=== PATIENT | female | born 1940 | race Caucasian/White ===

== ENCOUNTER 2016-05-21 14:59 | Emergency (ER) | payer MEDICARE, OTHER ==
[2016-05-21] MEDS ORDERED: Sodium Chloride 0.9% 10 ML Syringe FLUSH PRN (15:41)
[2016-05-21] MEDS ORDERED: Sodium Chloride 0.9% 250 ML IV STA (16:52)
--- NOTE | 2016-05-21 17:10 | EDM.PDOC ---
ED HPI GENERAL MEDICAL PROBLEM - General Chief Complaint: General Stated Complaint: BLOOD TRANSFUSION Time Seen by Provider: 05/21/16 15:25 Source of Information: Reports: Patient History Limitations: Reports: No limitations - History of Present Illness INITIAL COMMENTS - FREE TEXT/NARRATIVE: The patient presents with anemia. She has myelodysplastic syndrome and she is being treated by Dr Pearson at [facility] in [place]. She is on darbepoetin to help stimulate her bone marrow to make more red blood cells. For the past few days, she has been weak and having no energy. She also has some shortness of breath but no chest pain or headache. She feels like her Hgb is low again. Her last one done a few weeks ago was 8.7. Onset: gradual Duration: Day(s): Improves with: Reports: None Worsens with: Reports: Movement Context: Reports: Activity Associated Symptoms: Reports: nausea/vomiting (nausea at times), shortness of breath. Denies: chest pain, cough, fever/chills - Related Data Allergies Allergy/AdvReac Type Severity Reaction Status Date / Time Sulfa (Sulfonamide AdvReac Headache Verified 05/21/16 15:14 Antibiotics) Home Meds: Home Meds Cyanocobalamin (Vitamin B-12) [Vitamin B-12] 1,000 mcg PO DAILY 03/12/14 [ History] Melatonin/Pyridoxine HCl (B6) [Melatonin 3 mg Tablet] 3 mg PO BEDTIME PRN [History] Latanoprost [Xalatan 0.005% Ophth Soln] 2.5 ml EYEBOTH BEDTIME 02/08/15 [History ] Pantoprazole Sodium [Protonix] 40 mg PO DAILY 03/02/16 [History] Past Medical History HEENT History: Reports: Impaired vision Other Gastrointestinal History: ulcerative colitis, esophagitis, 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 Musculoskeletal History: Reports: Arthritis Hematologic History: Reports: Anemia - Past Surgical History Other GI Surgeries/Procedures: hemorrhoidectomy Social & Family History - Family History Family Medical History: Noncontributory Oncologic: Reports: Colon - Tobacco Use Smoking Status *Q: Never Smoker Second Hand Smoke Exposure: No - Caffeine Use Caffeine Use: Reports: Soda - Alcohol Use Days Per Week of Alcohol Use: 0 Number of Drinks Per Day: 0 Total Drinks Per Week: 0 - Recreational Drug Use Recreational Drug Use: No Drug Use in Last 12 Months: No - Living Situation & Occupation Living situation: Reports: Occupation: retired ED ROS GENERAL - Review of Systems Review Of Systems: See Below Constitutional: Reports: malaise, weakness, fatigue HEENT: Reports: No symptoms Respiratory: Reports: shortness of breath Cardiovascular: Reports: No symptoms Endocrine: Reports: no symptoms GI/Abdominal: Reports: No symptoms : Reports: no symptoms Musculoskeletal: Reports: no symptoms Skin: Reports: no symptoms ED EXAM, GENERAL - Physical Exam Exam: See Below Exam Limited By: No limitations General Appearance: alert, no apparent distress Ears: normal external exam Nose: normal inspection Head: atraumatic, normocephalic Neck: normal inspection Respiratory/Chest: no respiratory distress, lungs clear, normal breath sounds Cardiovascular: regular rate, rhythm, no edema, no murmur GI/Abdominal: soft, non tender, no organomegaly, no mass Back Exam: normal inspection Neurological: alert, oriented, no motor/sensory deficits Course - Vital Signs Last Recorded V/S: Last Vital Signs Temp 98.7 F 05/21/16 17:51 Pulse 82 05/21/16 17:51 Resp 14 05/21/16 17:51 BP 93/55 L 05/21/16 17:51 Pulse Ox 100 05/21/16 15:12 - Orders/Labs/Meds Orders: Active Orders 24 hr Category Date Time Status Peripheral IV Care [RC] . DIRECTED Care 05/21/16 15:42 Active RED BLOOD CELLS LP [BBK] Stat Lab 05/21/16 15:25 Results TYPE AND SCREEN [BBK] Stat Lab 05/21/16 15:25 Results Sodium Chloride 0.9% [Normal Saline] 250 ml Med 05/21/16 16:52 Active IV NOW Sodium Chloride 0.9% [Saline Flush] Med 05/21/16 15:41 Active 10 ml FLUSH ASDIRECTED PRN Peripheral IV Insertion Adult [OM.PC] Stat Oth 05/21/16 15:41 Ordered Transfuse PRBC [Transfuse Red Blood Cells] [COMM] Stat Oth 05/21/16 15:42 Ordered Medication Orders Sodium Chloride (Normal Saline) 250 mls @ 25 mls/hr IV NOW STA Stop: 05/22/16 02:51 Last Admin: 05/21/16 17:57 Dose: 25 mls/hr Sodium Chloride (Saline Flush) 10 ml FLUSH ASDIRECTED PRN PRN Reason: Keep Vein Open Last Admin: 05/21/16 15:45 Dose: 10 ml Labs: Laboratory Tests 05/21/16 05/21/16 Range/Units 15:25 15:25 WBC 4.76 (3.98-10.04) K/mm3 RBC 2.03 L (3.98-5.22) M/mm3 Hgb 6.5 L* (11.2-15.7) gm/L Hct 20.5 L (34.1-44.9) % MCV 101.0 H (79.4-94.8) fl MCH 32.0 (25.6-32.2) pg MCHC 31.7 L (32.2-35.5) g/dl RDW Std Deviation 98.3 H (36.4-46.3) fL Plt Count 327 (182-369) K/mm3 MPV 10.2 (9.4-12.3) fl Neut % (Auto) 53.1 (34.0-71.1) % Lymph % (Auto) 28.2 (19.3-51.7) % [place] % (Auto) 8.6 (4.7-12.5) % Eos % (Auto) 7.8 H (0.7-5.8) Baso % (Auto) 1.5 H (0.1-1.2) % Neut # 2.53 (1.56-6.13) K/mm3 Lymph # 1.34 (1.18-3.74) K/mm3 [place] # 0.41 H (0.24-0.36) K/mm3 Eos # 0.37 H (0.04-0.36) K/mm3 Baso # 0.07 (0.01-0.08) K/mm3 Manual Slide Review Abnormal smear Blood Type B POSITIVE Gel Antibody Screen Negative Crossmatch See Detail Meds: Medications Generic Name Dose Route Start Last Admin Trade Name Freq PRN Reason Stop Dose Admin Sodium Chloride 250 mls @ 25 mls/hr 05/21/16 16:52 05/21/16 17:57 Normal Saline IV 05/22/16 02:51 25 mls/hr NOW STA Administration Sodium Chloride 10 ml 05/21/16 15:41 05/21/16 15:45 Saline Flush FLUSH 10 ml ASDIRECTED PRN Administration Keep Vein Open - Re-Assessments/Exams Free Text/Narrative Re-Assessment/Exam: 05/21/16 17:09 I ordered an IV saline lock. Her Hgb was 6.5. I have 2 units ordered. 05/21/16 18:32 The blood is being transfused and she is doing good. She will be discharged after the 2 units. She was given something to eat. Departure - Departure Time of Disposition: 18:35 Disposition: Home, Self-Care 01 Condition: good Clinical Impression: Myelodysplasia (myelodysplastic syndrome) Anemia Qualifiers: Anemia type: other cause Other causes of anemia: other cause, not classified Qualified Code(s): D64.89 - Other specified anemias Referrals: Shannan Pearson MD [Primary Care Provider] - (as scheduled) Forms: ED Department Discharge Additional Instructions: Continue take your medication as prescribed. Please return if you are worse. - My Orders Last 24 Hours: My Active Orders 05/21/16 15:25 RED BLOOD CELLS LP [BBK] Stat TYPE AND SCREEN [BBK] Stat 05/21/16 15:41 Sodium Chloride 0.9% [Saline Flush] 10 ml FLUSH ASDIRECTED PRN Peripheral IV Insertion Adult [OM.PC] Stat 05/21/16 15:42 Peripheral IV Care [RC] . DIRECTED Transfuse PRBC [Transfuse Red Blood Cells] [COMM] Stat 05/21/16 16:52 Sodium Chloride 0.9% [Normal Saline] 250 ml IV NOW - Assessment/Plan Last 24 Hours: My Active Orders 05/21/16 15:25 RED BLOOD CELLS LP [BBK] Stat TYPE AND SCREEN [BBK] Stat 05/21/16 15:41 Sodium Chloride 0.9% [Saline Flush] 10 ml FLUSH ASDIRECTED PRN Peripheral IV Insertion Adult [OM.PC] Stat 05/21/16 15:42 Peripheral IV Care [RC] . DIRECTED Transfuse PRBC [Transfuse Red Blood Cells] [COMM] Stat 05/21/16 16:52 Sodium Chloride 0.9% [Normal Saline] 250 ml IV NOW
[2016-05-21 22:18] VITALS: BP 103/52
== END 2016-05-21 22:25 | disposition home or self-care (01) ==
LOC: JD.ED 14:59
DX: D64.89 Other specified anemias (principal); D46.9 Myelodysplastic syndrome, unspecified; M19.90 Unspecified osteoarthritis, unspecified site; Z79.899 Other long term (current) drug therapy; Z88.2 Allergy status to sulfonamides
CPT/HCPCS: 36415; 36430; 85025; 86850; 86900; 86901; 86922; 99285; J7050; P9016; 99284

== ENCOUNTER 2016-06-20 15:54 | Emergency (ER) | payer MEDICARE, OTHER ==
[2016-06-20] MEDS ORDERED: Sodium Chloride 0.9% 10 ML Syringe FLUSH PRN (16:43)
[2016-06-20] MEDS ORDERED: Sodium Chloride 0.9% 1,000 ML IV ONE (16:49)
--- NOTE | 2016-06-20 17:46 | EDM.PDOC ---
ED HPI GENERAL MEDICAL PROBLEM - General Chief Complaint: General Stated Complaint: LOW HEMOGLOBIN Time Seen by Provider: 06/20/16 16:21 Source of Information: Reports: Patient History Limitations: Reports: No limitations - History of Present Illness INITIAL COMMENTS - FREE TEXT/NARRATIVE: Patient presents for evaluation and treatment of nausea and diarrhea. Patient reports that she's been feeling ill for the last 2 days. Patient reports that she has myelodysplastic syndrome and feels that her hemoglobin is low. She states this is how she feels when her hemoglobin is low. She reports that she's been feeling nauseous and has had dry heaves but no vomiting. She reports 2 episodes of looser brown stools today. No melena or hematochezia. She also feels weak and fatigued. She denies any fevers, cough, chest pain, shortness of breath or abdominal pain. Patient reports that she took a bath earlier in attempt to feel better. She states when she was trying to get out of the tub she felt weak and short of breath at that time but that has now resolved. Patient sees the local oncologist for her MDS. She is currently on a injection to help stimulate her bone marrow. Her oncologist is planning on making some changes to her medications as the injections no longer seems to be effective for her. Patient reports that she's had 5 or 6 blood transfusions. Her most recent blood transfusion was in May,. No complications with blood transfusions. - Related Data Allergies Allergy/AdvReac Type Severity Reaction Status Date / Time Sulfa (Sulfonamide AdvReac Headache Verified 06/20/16 16:10 Antibiotics) Home Meds: Home Meds Cyanocobalamin (Vitamin B-12) [Vitamin B-12] 1,000 mcg PO DAILY 03/12/14 [ History] Melatonin/Pyridoxine HCl (B6) [Melatonin 3 mg Tablet] 3 mg PO BEDTIME PRN [History] Latanoprost [Xalatan 0.005% Ophth Soln] 1 drop EYEBOTH BEDTIME 02/08/15 [History ] Pantoprazole Sodium [Protonix] 40 mg PO DAILY 03/02/16 [History] Past Medical History HEENT History: Reports: Impaired vision Other Gastrointestinal History: ulcerative colitis, esophagitis, 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 Musculoskeletal History: Reports: Arthritis Hematologic History: Reports: Anemia - Past Surgical History Other GI Surgeries/Procedures: hemorrhoidectomy Social & Family History - Family History Family Medical History: Noncontributory Oncologic: Reports: Colon - Tobacco Use Smoking Status *Q: Never Smoker Second Hand Smoke Exposure: No - Caffeine Use Caffeine Use: Reports: Soda - Alcohol Use Days Per Week of Alcohol Use: 0 Number of Drinks Per Day: 0 Total Drinks Per Week: 0 - Recreational Drug Use Recreational Drug Use: No Drug Use in Last 12 Months: No - Living Situation & Occupation Living situation: Reports: Occupation: retired ED ROS GENERAL - Review of Systems Review Of Systems: See Below Constitutional: Reports: malaise, weakness, fatigue. Denies: fever Respiratory: Denies: Shortness of Breath, Cough Cardiovascular: Denies: Chest pain GI/Abdominal: Reports: Diarrhea (x 2 episodes today), Nausea. Denies: Abdominal pain, Hematochezia, Melena, Vomiting ED EXAM, GENERAL - Physical Exam Exam: See Below Exam Limited By: No limitations General Appearance: alert, WD/WN, no apparent distress Respiratory/Chest: no respiratory distress, lungs clear, normal breath sounds Cardiovascular: normal peripheral pulses, regular rate, rhythm, no murmur GI/Abdominal: normal bowel sounds, soft, non tender Neurological: alert, oriented, normal cognition Psychiatric: normal affect, normal mood Skin Exam: Warm, Dry, Pallor Course - Vital Signs Last Recorded V/S: Last Vital Signs Temp 36.1 C 06/20/16 21:14 Pulse 84 06/20/16 21:14 Resp 18 06/20/16 21:14 BP 108/59 L 06/20/16 21:14 Pulse Ox 96 06/20/16 16:10 - Orders/Labs/Meds Orders: Active Orders 24 hr Category Date Time Status Peripheral IV Care [RC] . DIRECTED Care 06/20/16 16:43 Active Sodium Chloride 0.9% [Normal Saline] 1,000 ml Med 06/20/16 16:49 Active IV ONETIME Sodium Chloride 0.9% [Saline Flush] Med 06/20/16 16:43 Active 10 ml FLUSH ASDIRECTED PRN Peripheral IV Insertion Adult [OM.PC] Routine Oth 06/20/16 16:43 Ordered Transfuse PRBC [Transfuse Red Blood Cells] [COMM] Stat Oth 06/20/16 16:42 Ordered Medication Orders Sodium Chloride (Normal Saline) 1,000 mls @ 100 mls/hr IV ONETIME ONE Stop: 06/21/16 02:48 Last Admin: 06/20/16 17:01 Dose: 100 mls/hr Sodium Chloride (Saline Flush) 10 ml FLUSH ASDIRECTED PRN PRN Reason: Keep Vein Open Last Admin: 06/20/16 17:01 Dose: 10 ml Labs: Laboratory Tests 06/20/16 06/20/16 06/20/16 Range/Units 16:16 16:16 16:16 WBC 5.85 (3.98-10.04) K/mm3 RBC 2.46 L (3.98-5.22) M/mm3 Hgb 7.8 L (11.2-15.7) gm/L Hct 24.5 L (34.1-44.9) % MCV 99.6 H (79.4-94.8) fl MCH 31.7 (25.6-32.2) pg MCHC 31.8 L (32.2-35.5) g/dl RDW Std Deviation 85.8 H (36.4-46.3) fL Plt Count 360 (182-369) K/mm3 MPV 9.8 (9.4-12.3) fl Neut % (Auto) 54.4 (34.0-71.1) % Lymph % (Auto) 24.1 (19.3-51.7) % [place] % (Auto) 9.7 (4.7-12.5) % Eos % (Auto) 8.2 H (0.7-5.8) Baso % (Auto) 1.9 H (0.1-1.2) % Neut # (Auto) 3.18 (1.56-6.13) K/mm3 Lymph # (Auto) 1.41 (1.18-3.74) K/mm3 [place] # (Auto) 0.57 H (0.24-0.36) K/mm3 Eos # (Auto) 0.48 H (0.04-0.36) K/mm3 Baso # (Auto) 0.11 H (0.01-0.08) K/mm3 Manual Slide Review Abnormal smear Sodium 141 (136-145) mEq/L Potassium 3.7 (3.5-5.1) mEq/L Chloride 104 (98-107) mEq/L Carbon Dioxide 24 (21-32) mEq/L Anion Gap 16.7 H (5-15) BUN 14 (7-18) mg/dL Creatinine 1.1 H (0.55-1.02) mg/dL Est Cr Clr Drug Dosing 35.49 mL/min Estimated GFR (MDRD) 49 (>60) mL/min BUN/Creatinine Ratio 12.7 L (14-18) Glucose 163 H (83-115) mg/dL Calcium 8.8 (8.5-10.1) mg/dL B-Natriuretic Peptide (0-100) pg/mL Blood Type B POSITIVE Gel Antibody Screen Negative Crossmatch See Detail 06/20/16 Range/Units 16:42 WBC (3.98-10.04) K/mm3 RBC (3.98-5.22) M/mm3 Hgb (11.2-15.7) gm/L Hct (34.1-44.9) % MCV (79.4-94.8) fl MCH (25.6-32.2) pg MCHC (32.2-35.5) g/dl RDW Std Deviation (36.4-46.3) fL Plt Count (182-369) K/mm3 MPV (9.4-12.3) fl Neut % (Auto) (34.0-71.1) % Lymph % (Auto) (19.3-51.7) % [place] % (Auto) (4.7-12.5) % Eos % (Auto) (0.7-5.8) Baso % (Auto) (0.1-1.2) % Neut # (Auto) (1.56-6.13) K/mm3 Lymph # (Auto) (1.18-3.74) K/mm3 [place] # (Auto) (0.24-0.36) K/mm3 Eos # (Auto) (0.04-0.36) K/mm3 Baso # (Auto) (0.01-0.08) K/mm3 Manual Slide Review Sodium (136-145) mEq/L Potassium (3.5-5.1) mEq/L Chloride (98-107) mEq/L Carbon Dioxide (21-32) mEq/L Anion Gap (5-15) BUN (7-18) mg/dL Creatinine (0.55-1.02) mg/dL Est Cr Clr Drug Dosing mL/min Estimated GFR (MDRD) (>60) mL/min BUN/Creatinine Ratio (14-18) Glucose (83-115) mg/dL Calcium (8.5-10.1) mg/dL B-Natriuretic Peptide 86 (0-100) pg/mL Blood Type Gel Antibody Screen Crossmatch Meds: Medications Generic Name Dose Route Start Last Admin Trade Name Freq PRN Reason Stop Dose Admin Sodium Chloride 1,000 mls @ 100 mls/hr 06/20/16 16:49 06/20/16 17:01 Normal Saline IV 06/21/16 02:48 100 mls/hr ONETIME ONE Administration Sodium Chloride 10 ml 06/20/16 16:43 06/20/16 17:01 Saline Flush FLUSH 10 ml ASDIRECTED PRN Administration Keep Vein Open - Re-Assessments/Exams Free Text/Narrative Re-Assessment/Exam: 06/20/16 16:56 Labs returned. WBC is 5.85, hgb is 7.8 and plts are 360 Sodium is 141, potassium is 3.7 and chloride is 104. Anion gap is16.7. glucose is [address] Panchal. Recommend 2 units. Recommended checking a BNP to ensure she does not need lasix. 06/20/16 17:50 BNP is 86 06/20/16 18:50 Blood has arrived. Resting comfortably. Receiving blood. 06/20/16 22:01 Patient has about 3 hours left of the 2nd unit. Dr. Puente notified of patient. Plan is to discharge her once the 2 unit is in. Departure - Departure Time of Disposition: 21:52 Disposition: Home, Self-Care 01 Condition: good Clinical Impression: Anemia Qualifiers: Anemia type: other cause Other causes of anemia: other cause, not classified Qualified Code(s): D64.89 - Other specified anemias Forms: ED Department Discharge Additional Instructions: Continue with your current plan of care. Please return to the ER should your symptoms change or worsen. - My Orders Last 24 Hours: My Active Orders 06/20/16 16:42 Transfuse PRBC [Transfuse Red Blood Cells] [COMM] Stat 06/20/16 16:43 Peripheral IV Care [RC] . DIRECTED Sodium Chloride 0.9% [Saline Flush] 10 ml FLUSH ASDIRECTED PRN Peripheral IV Insertion Adult [OM.PC] Routine 06/20/16 16:49 Sodium Chloride 0.9% [Normal Saline] 1,000 ml IV ONETIME - Assessment/Plan Last 24 Hours: My Active Orders 06/20/16 16:42 Transfuse PRBC [Transfuse Red Blood Cells] [COMM] Stat 06/20/16 16:43 Peripheral IV Care [RC] . DIRECTED Sodium Chloride 0.9% [Saline Flush] 10 ml FLUSH ASDIRECTED PRN Peripheral IV Insertion Adult [OM.PC] Routine 06/20/16 16:49 Sodium Chloride 0.9% [Normal Saline] 1,000 ml IV ONETIME
[2016-06-20 23:48] VITALS: BP 112/75
== END 2016-06-20 23:46 | disposition home or self-care (01) ==
LOC: JD.ED 15:54
DX: D64.89 Other specified anemias (principal); D46.9 Myelodysplastic syndrome, unspecified; Z88.2 Allergy status to sulfonamides; Z79.899 Other long term (current) drug therapy; M19.90 Unspecified osteoarthritis, unspecified site
CPT/HCPCS: 36415; 36430; 80048; 83880; 85025; 86850; 86900; 86901; 86922; 96360; 96361; 99284; J7040; J7050; P9016

== ENCOUNTER 2016-07-24 14:35 | Emergency (ER) | payer MEDICARE, OTHER ==
[2016-07-24] MEDS ORDERED: Sodium Chloride 0.9% 10 ML Syringe FLUSH PRN (15:24)
--- NOTE | 2016-07-24 15:57 | EDM.PDOC ---
ED HPI GENERAL MEDICAL PROBLEM - General Chief Complaint: Cardiovascular Problem Stated Complaint: PALE/ NEEDS POSS BLOOD TRANSFUSION Time Seen by Provider: 07/24/16 15:26 Source of Information: Reports: Patient History Limitations: Reports: No Limitations - History of Present Illness INITIAL COMMENTS - FREE TEXT/NARRATIVE: 76-year-old female presents for a low hemoglobin. She feels that her hemoglobin is low today. She is currently a diagnosis of MDS. Sees oncology in [place]. She has an appointment with her oncologist tomorrow. She feels her hemoglobin is low today and will likely require blood. She denies any fevers or chills. Current symptoms include dizziness, lightheadedness, nausea, vomiting, diarrhea and abdominal discomfort. Denies any chest pain, shortness of breath or syncope. Last blood transfusion was about one month ago. Hemoglobin was 7.8. Received 2 units of blood. - Related Data Allergies Allergy/AdvReac Type Severity Reaction Status Date / Time Sulfa (Sulfonamide AdvReac Headache Verified 07/24/16 14:57 Antibiotics) Home Meds: Home Meds Cyanocobalamin (Vitamin B-12) [Vitamin B-12] 1,000 mcg PO DAILY 03/12/14 [ History] Melatonin/Pyridoxine HCl (B6) [Melatonin 3 mg Tablet] 3 mg PO BEDTIME PRN [History] Latanoprost [Xalatan 0.005% Ophth Soln] 1 drop EYEBOTH BEDTIME 02/08/15 [History ] Pantoprazole Sodium [Protonix] 40 mg PO DAILY 03/02/16 [History] Deferasirox [Jadenu] 750 mg PO DAILY 07/24/16 [History] Lenalidomide [Revlimid] 10 mg PO DAILY 07/24/16 [History] Past Medical History HEENT History: Reports: Impaired Vision Other Gastrointestinal History: ulcerative colitis, esophagitis, 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 , diverticulitis Musculoskeletal History: Reports: Arthritis Hematologic History: Reports: Anemia, Other (See Below) Other Hematologic History: myelody plastic syndrome (MDS) - Past Surgical History Other GI Surgeries/Procedures: hemorrhoidectomy Social & Family History - Family History Family Medical History: Noncontributory Oncologic: Reports: Colon - Tobacco Use Smoking Status *Q: Never Smoker Second Hand Smoke Exposure: No - Caffeine Use Caffeine Use: Reports: Coffee - Alcohol Use Days Per Week of Alcohol Use: 0 Number of Drinks Per Day: 0 Total Drinks Per Week: 0 - Recreational Drug Use Recreational Drug Use: No Drug Use in Last 12 Months: No - Living Situation & Occupation Living situation: Reports: Occupation: Retired ED ROS GENERAL - Review of Systems Review Of Systems: See Below Constitutional: Reports: Weakness. Denies: Fever Respiratory: Denies: Shortness of Breath Cardiovascular: Reports: Lightheadedness. Denies: Chest Pain, Syncope GI/Abdominal: Reports: Abdominal Pain, Diarrhea, Nausea, Vomiting Neurological: Reports: Dizziness ED EXAM, GENERAL - Physical Exam Exam: See Below Exam Limited By: No Limitations General Appearance: Alert, WD/WN, No Apparent Distress Respiratory/Chest: No Respiratory Distress, Lungs Clear, Normal Breath Sounds Cardiovascular: Normal Peripheral Pulses, Regular Rate, Rhythm, No Murmur Neurological: Alert, Oriented, Normal Cognition Psychiatric: Normal Affect, Normal Mood Skin Exam: Warm, Dry, Pallor Course - Vital Signs Last Recorded V/S: Last Vital Signs Temp 36.8 C 07/24/16 22:13 Pulse 72 07/24/16 22:13 Resp 18 07/24/16 22:13 BP 94/46 L 07/24/16 22:13 Pulse Ox 100 07/24/16 14:51 - Orders/Labs/Meds Orders: Active Orders 24 hr Category Date Time Status Peripheral IV Care [RC] . DIRECTED Care 07/24/16 15:25 Active Peripheral IV Insertion Adult [OM.PC] Routine Oth 07/24/16 15:24 Ordered Transfuse Red Blood Cells [COMM] Stat Oth 07/24/16 16:23 Ordered Labs: Laboratory Tests 07/24/16 07/24/16 07/24/16 Range/Units 16:07 16:07 16:07 WBC 4.11 (3.98-10.04) K/mm3 RBC 2.34 L (3.98-5.22) M/mm3 Hgb 7.4 L (11.2-15.7) gm/L Hct 23.3 L (34.1-44.9) % MCV 99.6 H (79.4-94.8) fl MCH 31.6 (25.6-32.2) pg MCHC 31.8 L (32.2-35.5) g/dl RDW Std Deviation 79.8 H (36.4-46.3) fL Plt Count 230 (182-369) K/mm3 MPV 10.9 (9.4-12.3) fl Sodium 143 (136-145) mEq/L Potassium 3.1 L (3.5-5.1) mEq/L Chloride 107 (98-107) mEq/L Carbon Dioxide 23 (21-32) mEq/L Anion Gap 16.1 H (5-15) BUN 9 (7-18) mg/dL Creatinine 1.1 H (0.55-1.02) mg/dL Est Cr Clr Drug Dosing 34.95 mL/min Estimated GFR (MDRD) 48 (>60) mL/min BUN/Creatinine Ratio 8.2 L (14-18) Glucose 100 (83-115) mg/dL Calcium 8.1 L (8.5-10.1) mg/dL Total Bilirubin 1.8 H (0.2-1.0) mg/dL AST 13 L (15-37) U/L ALT 16 (14-59) U/L Alkaline Phosphatase 58 (46-116) U/L B-Natriuretic Peptide 290 H (0-100) pg/mL Total Protein 6.8 (6.4-8.2) g/dl Albumin 3.8 (3.4-5.0) g/dl Globulin 3.0 gm/dL Albumin/Globulin Ratio 1.3 (1-2) Blood Type Gel Antibody Screen Crossmatch 07/24/16 Range/Units 16:07 WBC (3.98-10.04) K/mm3 RBC (3.98-5.22) M/mm3 Hgb (11.2-15.7) gm/L Hct (34.1-44.9) % MCV (79.4-94.8) fl MCH (25.6-32.2) pg MCHC (32.2-35.5) g/dl RDW Std Deviation (36.4-46.3) fL Plt Count (182-369) K/mm3 MPV (9.4-12.3) fl Sodium (136-145) mEq/L Potassium (3.5-5.1) mEq/L Chloride (98-107) mEq/L Carbon Dioxide (21-32) mEq/L Anion Gap (5-15) BUN (7-18) mg/dL Creatinine (0.55-1.02) mg/dL Est Cr Clr Drug Dosing mL/min Estimated GFR (MDRD) (>60) mL/min BUN/Creatinine Ratio (14-18) Glucose (83-115) mg/dL Calcium (8.5-10.1) mg/dL Total Bilirubin (0.2-1.0) mg/dL AST (15-37) U/L ALT (14-59) U/L Alkaline Phosphatase (46-116) U/L B-Natriuretic Peptide (0-100) pg/mL Total Protein (6.4-8.2) g/dl Albumin (3.4-5.0) g/dl Globulin gm/dL Albumin/Globulin Ratio (1-2) Blood Type B POSITIVE Gel Antibody Screen Negative Crossmatch See Detail Meds: Medications Discontinued Medications Generic Name Dose Route Start Last Admin Trade Name Freq PRN Reason Stop Dose Admin Furosemide 20 mg 07/24/16 21:10 Lasix IVPUSH 07/24/16 21:11 ONETIME ONE Sodium Chloride Confirm 07/24/16 17:20 Normal Saline Administered 07/24/16 17:21 Dose 1,000 mls @ as directed .ROUTE .STK-MED ONE Sodium Chloride 10 ml 07/24/16 15:24 07/24/16 17:29 Saline Flush FLUSH 10 ml ASDIRECTED PRN Administration Keep Vein Open - Re-Assessments/Exams Free Text/Narrative Re-Assessment/Exam: 07/24/16 22:33 Labs include the following. White blood cell count 4.1, hemoglobin 7.4 platelets 2:30. Sodium 143, potassium 3.1 chloride 107. Anion gap is 16.1. Glucose is 100. BNP is 290. Patient was ordered 2 units of blood for her hemoglobin of 7.4. Plan was to give Lasix 20 mg in between units. However, her blood pressure was in the 90s systolic and due to concerns over hypotension this was withheld. Patient tolerated the transfusion well. She feels well enough to go home. Will discharge home at this time. She is to follow up with her oncologist tomorrow as planned. Discharge instructions as documented. Departure - Departure Time of Disposition: 22:34 Disposition: Home, Self-Care 01 Condition: good Clinical Impression: Anemia Qualifiers: Anemia type: other cause Other causes of anemia: other cause, not classified Qualified Code(s): D64.89 - Other specified anemias Instructions: Blood Transfusion, [id number], Anemia, Referrals: Shannan Pearson MD [Primary Care Provider] - Forms: ED Department Discharge Additional Instructions: Continue with your current plan of care. Follow-up with your oncologist tomorrow as planned. Please return to the ER should your symptoms change or worsen. - My Orders Last 24 Hours: My Active Orders 07/24/16 15:24 Peripheral IV Insertion Adult [OM.PC] Routine 07/24/16 15:25 Peripheral IV Care [RC] . DIRECTED 07/24/16 16:23 Transfuse Red Blood Cells [COMM] Stat - Assessment/Plan Last 24 Hours: My Active Orders 07/24/16 15:24 Peripheral IV Insertion Adult [OM.PC] Routine 07/24/16 15:25 Peripheral IV Care [RC] . DIRECTED 07/24/16 16:23 Transfuse Red Blood Cells [COMM] Stat
[2016-07-24] MEDS ORDERED: Sodium Chloride 0.9% 1,000 ML ONE (17:20)
[2016-07-24] MEDS ORDERED: Furosemide 20 MG/2 ML VIAL IVPUSH ONE (21:10)
[2016-07-24 22:14] VITALS: BP 94/46
== END 2016-07-24 22:53 | disposition home or self-care (01) ==
LOC: JD.ED 14:35
DX: D64.89 Other specified anemias (principal); Z98.890 Other specified postprocedural states; Z88.2 Allergy status to sulfonamides; Z79.899 Other long term (current) drug therapy
CPT/HCPCS: 36415; 36430; 80053; 83880; 85027; 86850; 86900; 86901; 86922; 99284; J7050; P9016

== ENCOUNTER 2017-01-08 15:05 | Emergency (ER) | payer MEDICARE, OTHER ==
--- NOTE | 2017-01-08 15:23 | EDM.PDOC ---
ED HPI GENERAL MEDICAL PROBLEM - General Chief Complaint: Syncope Stated Complaint: FEELING FAINT Time Seen by Provider: 01/08/17 15:21 Source of Information: Reports: Patient History Limitations: Reports: No Limitations - History of Present Illness INITIAL COMMENTS - FREE TEXT/NARRATIVE: 76-year-old female presents to the ED after experiencing sudden onset of severe left lower lateral chest pain. Described it as sharp and stabbing but morbidly pressure discomfort. At any rate once the pain came on it made her feel dizzy lightheaded and diaphoretic and that she was going to faint. The chest pain is subsequently went away. When she got to the hospital should to go to the bathroom immediately and pass her bowels which seemed to help the pain. Patient suffers from myelodysplastic syndrome and did have lab work done at [facility] this morning. Her hemoglobin apparently was 9.0 and a don't usually transfuse her until she goes below 9. Her white count apparently was quite low. She is currently on antibiotic therapy for urinary tract infection. She denies any fever or chills. He is quite pallid however in appearance. Onset: Today Onset Date: 01/08/17 Onset Time: 14:45 Duration: Minutes: Location: Reports: Chest (Left lateral lower chest) Quality: Reports: Ache, Pressure. Denies: Sharp, Stabbing Severity: Moderate (Pain was 8 out of 10 for a while.) Improves with: Reports: Other (Gradually got better on its own over a period of 10-15 minutes.) Worsens with: Reports: None Context: Denies: Activity, Exercise, Lifting, Sick Contact, Trauma, Other (Was walking when the pain came on.) Associated Symptoms: Reports: Chest Pain, Loss of Appetite (Chronically), Malaise, Nausea/Vomiting, Shortness of Breath, Weakness, Other (Like she was going to pass out for a period of time.). Denies: Confusion, Cough, cough w sputum, Fever/Chills, Headaches, Rash, Seizure (Nausea without vomiting), Syncope Treatments [employer]: Reports: Other (see below) (Did not take anything for the pain it seemed to get better on its own over time) - Related Data Allergies Allergy/AdvReac Type Severity Reaction Status Date / Time Sulfa (Sulfonamide AdvReac Headache Verified 01/08/17 15:16 Antibiotics) Home Meds: Home Meds Cyanocobalamin (Vitamin B-12) [Vitamin B-12] 1,000 mcg PO DAILY 03/12/14 [ History] Latanoprost [Xalatan 0.005% Ophth Soln] 1 drop EYEBOTH BEDTIME 02/08/15 [History ] Pantoprazole Sodium [Protonix] 40 mg PO DAILY 03/02/16 [History] Melatonin 3 mg PO BEDTIME PRN 10/25/16 [History] Turmeric Root Extract [Turmeric] 500 mg PO DAILY 10/25/16 [History] Ciprofloxacin [Ciprofloxacin HCl] 500 mg PO BID 01/08/17 [History] Lenalidomide [Revlimid] 5 mg PO ASDIRECTED 01/08/17 [History] Past Medical History HEENT History: Reports: Impaired Vision Other Gastrointestinal History: ulcerative colitis, esophagitis, 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 , diverticulitis Musculoskeletal History: Reports: Arthritis Hematologic History: Reports: Anemia, Other (See Below) Other Hematologic History: myelody plastic syndrome (MDS) - Past Surgical History Other GI Surgeries/Procedures: hemorrhoidectomy Social & Family History - Family History Family Medical History: Noncontributory Oncologic: Reports: Colon - Tobacco Use Smoking Status *Q: Never Smoker Second Hand Smoke Exposure: No - Caffeine Use Caffeine Use: Reports: Coffee - Alcohol Use Days Per Week of Alcohol Use: 0 Number of Drinks Per Day: 0 Total Drinks Per Week: 0 - Recreational Drug Use Recreational Drug Use: No Drug Use in Last 12 Months: No - Living Situation & Occupation Living situation: Reports: Occupation: Retired ED ROS GENERAL - Review of Systems Review Of Systems: See Below Constitutional: Reports: Malaise, Weakness, Fatigue (Due to chronic anemia from myelodysplastic syndrome.), Decreased Appetite, Weight Loss. Denies: Fever, Chills HEENT: Reports: No Symptoms, Other Respiratory: Reports: Shortness of Breath (No recent nosebleeds.). Denies: Wheezing, Pleuritic Chest Pain ( On exertion) Cardiovascular: Reports: Chest Pain, Blood Pressure Problem (See history of present illness), Dyspnea on Exertion (Mild in her feet.), Edema, Lightheadedness, Palpitations. Denies: Claudication ( often has a low blood pressure), Orthopnea Endocrine: Reports: Fatigue (Occasionally aware of palpitations) GI/Abdominal: Reports: Constipation : Reports: Incontinence (Mainly stress component) Musculoskeletal: Reports: Back Pain, Joint Pain (Knees and hips at times) Skin: Reports: Pallor (Due to chronic anemia) Neurological: Reports: Dizziness ([place] like she might pass out with days pain attack.) Hematologic/Lymphatic: Reports: No Symptoms Immunologic: Reports: No Symptoms ED EXAM, NEURO - Physical Exam Exam: See Below Exam Limited By: No Limitations General Appearance: Anxious, Other (Mildly anxious very palate in color.) Eye Exam: Bilateral Eye: Other (Very pale conjunctiva.) Head Exam: Atraumatic, Normocephalic Neck: Normal Inspection, Supple, Non-Tender, Full Range of Motion Respiratory/Chest: No Respiratory Distress, Lungs Clear, Normal Breath Sounds, No Accessory Muscle Use Cardiovascular: Normal Peripheral Pulses, Regular Rate, Rhythm, No Edema, No Murmur GI/Abdominal: Normal Bowel Sounds, Soft, Non-Tender, No Organomegaly (Mildly hyperactive bowel sounds throughout.), No Distention, Abnormal Bowel Sounds Neurological: Alert, Normal Mood/Affect, Normal Dorsiflexion, CN II-XII Intact, Normal Plantar Flexion, Normal Reflexes Back Exam: Normal Inspection, Full Range of Motion Extremities: Normal Range of Motion, Non-Tender, No Pedal Edema, Normal Capillary Refill Psychiatric: Normal Affect, Normal Mood Skin Exam: Warm, Dry, Intact, No Rash, Pallor EKG INTERPRETATION EKG Date: 01/08/17 Time: 15:45 Rhythm: NSR Rate (Beats/Min): 67 [place]: LAD-Left [place] Deviation (-10) P-Wave: Present QRS: Other (Early R-wave transition with poor R-wave progression. Near Q waves leads 3 and aVF consider possible old inferior wall myocardial infarction.) ST-T: Other (T-wave flattening 1 and aVL. Also lead to V3 to V 6.) QT: Prolonged (Markedly prolonged at 505.) Course - Vital Signs Last Recorded V/S: Last Vital Signs Temp 36.1 C 01/08/17 15:16 Pulse 70 01/08/17 16:17 Resp 12 01/08/17 16:17 BP 114/66 01/08/17 16:17 Pulse Ox 99 01/08/17 16:17 Orthostatic Blood Pressure [ 101/54 Standing] Orthostatic Blood Pressure [ 105/59 Sitting] Orthostatic Blood Pressure [ 91/43 Supine] - Orders/Labs/Meds Orders: Active Orders 24 hr Category Date Time Status EKG Documentation Completion [RC] STAT Care 01/08/17 15:21 Active Orthostatic Vital Signs [RC] ASDIRECTED Care 01/08/17 15:22 Active Abdomen 1V Flat [CR] Stat Exams 01/08/17 15:31 Taken Chest 1V Frontal [CR] Stat Exams 01/08/17 15:21 Taken Sodium Chloride 0.9% [Normal Saline] 1,000 ml Med 01/08/17 15:30 Active IV ASDIRECTED Medication Orders Sodium Chloride (Normal Saline) 1,000 mls @ 150 mls/hr IV ASDIRECTED MAYRA Meds: Medications Generic Name Dose Route Start Last Admin Trade Name Freq PRN Reason Stop Dose Admin Sodium Chloride 1,000 mls @ 150 mls/hr 01/08/17 15:30 Normal Saline IV ASDIRECTED MAYRA - Radiology Interpretation Free Text/Narrative:: 76-year-old female presents to the ED after experiencing sudden onset of left lateral lower chest pain pressure discomfort while walking. Stopped in her traction for a period of time later break out in a sweat feel nauseated and like she might pass out. She had to sit for about 15 minutes and then seemed to poonam. When she got to the hospital she had to go to the bathroom right away and have a bowel movement would seem to improve the situation. suffers from myelodysplastic syndrome and had lab work carried out at [facility] earlier this morning. She was told her white count was low her hemoglobin was stable at 9.0 and did not need a blood transfusion at this time. Is quite pallid in appearance. 2 sets or posterior 100% however. His Sudafed during lab work we will see if we can obtain the labs from [facility]. I have will have one view of the chest and one view of the abdomen x-ray done. He will be 150 mils of normal saline bolus. She is to have orthostatic BPs done. I believe the pain response precipitated a vagal response which in turn combined with her chronic anemia did drop her blood pressure substantially and nearly made her faint. Because of the pain is unclear at this time but does not appear to be cardiac related. - Re-Assessments/Exams Free Text/Narrative Re-Assessment/Exam: 01/08/17 15:53 was able to obtain lab work done from [place] today. White count is 3.7 hemoglobin is 9.6 today hematocrit of 29.7 platelet count 126,000 chemistry is available. She is on Cipro for urinary tract infection at this time. 01/08/17 16:07 chest x-ray is within normal limits. KUB is essentially normal as well. It is rather hazy and one has to consider ascites. Orthostatic BPs were okay but they remain low with a systolic of 101 only. I believe she suffered a vagal response to pain which in turn dropped her blood pressure and major nearly collapse. 01/08/17 16:20 blood pressure is improved up to 114 systolic. Since I can find anything wrong I'm going to have her up walking in the hallway and see how she feels. I sense is that she developed left lateral chest discomfort from a GI source since her bowels had to work immediately when she got to the hospital and she's felt improved since that time. 01/08/17 16:35 patient did well up walking in the hallway with no problems. She will therefore be discharged to home. No changes in medications will be made at this time. Cause of the sudden left-sided chest pain appears to been GI in origin causing vagal response. Departure - Departure Time of Disposition: 16:35 Disposition: Home, Self-Care 01 Condition: Fair Clinical Impression: Vasovagal near-syncope, Anemia of chronic disorder - Discharge Information Referrals: Shannan Pearson MD [Primary Care Provider] - Forms: ED Department Discharge Additional Instructions: Evaluation in the emergency department today in regards to near syncope or faint. This appears to of occurred from sudden onset of pain left lateral chest wall of unclear cause. I strongly suspect it was GI in origin as once her bowels moved the pain seemed to dissipate. X-rays of the chest are completely normal as was abdominal x-rays. Labs were obtained from [place] that were done this morning they are incomplete in terms of liver function kidney function etc. and reveal that your blood reveals a hemoglobin of 9.6 and a white count of 3.7 which is low normal. Platelet count was also low normal at 126,000. Further blood work was not felt necessary be necessary at this time. I suspect the cause of urine or faint was pain response which we called vagal response slows her heart rate down which then in turn drops her blood pressure and make you feel faint. Once the pain dissipated there heart rate came back up and your blood pressure improved. Therefore no further treatment is advised or indicated at this time. - My Orders Last 24 Hours: My Active Orders 01/08/17 15:21 EKG Documentation Completion [RC] STAT Chest 1V Frontal [CR] Stat 01/08/17 15:22 Orthostatic Vital Signs [RC] ASDIRECTED 01/08/17 15:30 Sodium Chloride 0.9% [Normal Saline] 1,000 ml IV ASDIRECTED 01/08/17 15:31 Abdomen 1V Flat [CR] Stat - Assessment/Plan Last 24 Hours: My Active Orders 01/08/17 15:21 EKG Documentation Completion [RC] STAT Chest 1V Frontal [CR] Stat 01/08/17 15:22 Orthostatic Vital Signs [RC] ASDIRECTED 01/08/17 15:30 Sodium Chloride 0.9% [Normal Saline] 1,000 ml IV ASDIRECTED 01/08/17 15:31 Abdomen 1V Flat [CR] Stat
[2017-01-08] MEDS ORDERED: Sodium Chloride 0.9% 1,000 ML IV SCH (15:30)
[2017-01-08 17:33] VITALS: BP 105/56
--- NOTE | 2017-01-09 09:09 | CR ---
Chest: Portable view of the chest was obtained. Comparison: No prior chest x-ray. Heart size is normal. Tortuous thoracic aorta is seen. Lungs are clear. Bony structures show slight scoliosis within the spine. Mild degenerative endplate spurring is seen within the spine. Impression: 1. Incidental findings. Nothing acute is identified on portable chest x-ray. Diagnostic code #2
--- NOTE | 2017-01-09 09:09 | CR ---
Abdomen: Portable view of the abdomen was obtained. Slight vascular calcification is identified within the pelvis. Phlebolith also seen within the pelvis. Bowel gas pattern felt to be within normal limits although abdomen is slightly gasless. Calcifications are seen overlying the right superior iliac bone which are likely dystrophic and incidental. Bony structures are osteopenic. Mild degenerative change is scattered within the spine. Impression: 1. Incidental findings. Diagnostic code #2
== END 2017-01-08 17:30 | disposition home or self-care (01) ==
LOC: JD.ED 15:05
DX: R55 Syncope and collapse (principal); D53.9 Nutritional anemia, unspecified; Z79.899 Other long term (current) drug therapy; Z88.2 Allergy status to sulfonamides
CPT/HCPCS: 71010; 71010-26; 74000; 74000-26; 93005; 93010; 99285-25

== ENCOUNTER 2017-04-19 22:14 | Emergency (ER) | payer MEDICARE, OTHER ==
[2017-04-19 22:35] VITALS: BP 117/59
--- NOTE | 2017-04-19 23:43 | EDM.PDOC ---
ED HPI GENERAL MEDICAL PROBLEM - General Chief Complaint: Cardiovascular Problem Stated Complaint: PT STATES SHE NEED BLOOD Time Seen by Provider: 04/19/17 22:33 Source of Information: Reports: Patient, Family History Limitations: Reports: No Limitations - History of Present Illness INITIAL COMMENTS - FREE TEXT/NARRATIVE: This is a 76-year-old female. At noon today she had a fried egg and toast. She noted afterwards that she started having some burning sensation in her chest and some stomach upset. She denies however any nausea or vomiting. She did have dry heaves but never vomited anything up. She says she doesn't have a history of heartburn but she has GERD. She comes today because she has a myelodysplastic syndrome and requires transfusions periodically. She had a blood draw done this week at the walk-in clinic with a hemoglobin of 7.7. She does not appear to be particularly pale and she has good color to her lips. She thinks she might need a blood transfusion because of the symptoms that she had today. He does not appear to be in distress at this time she is sitting comfortably in bed and appears that she wants to talk. She says she doesn't have any more burning sensation in her stomach is not bothering her presently. Abdominal Pain Score (Numeric/FACES): 5 - Related Data Allergies Allergy/AdvReac Type Severity Reaction Status Date / Time Sulfa (Sulfonamide AdvReac Headache Verified 04/19/17 22:30 Antibiotics) Home Meds: Home Meds Cyanocobalamin (Vitamin B-12) [Vitamin B-12] 1,000 mcg PO DAILY 03/12/14 [ History] Latanoprost [Xalatan 0.005% Ophth Soln] 1 drop EYEBOTH BEDTIME 02/08/15 [History ] Pantoprazole Sodium [Protonix] 40 mg PO DAILY 03/02/16 [History] Melatonin 3 mg PO BEDTIME PRN 10/25/16 [History] Turmeric Root Extract [Turmeric] 500 mg PO DAILY 10/25/16 [History] Ciprofloxacin [Ciprofloxacin HCl] 500 mg PO BID 01/08/17 [History] Lenalidomide [Revlimid] 5 mg PO ASDIRECTED 01/08/17 [History] Past Medical History HEENT History: Reports: Impaired Vision Other Gastrointestinal History: ulcerative colitis, esophagitis, 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 , diverticulitis [employer] History: Reports: Musculoskeletal History: Reports: Arthritis Hematologic History: Reports: Anemia, Other (See Below) Other Hematologic History: myelodysplastic syndrome (MDS) - Infectious Disease History Infectious Disease History: Reports: Measles - Past Surgical History Other GI Surgeries/Procedures: hemorrhoidectomy Social & Family History - Family History Family Medical History: Noncontributory Oncologic: Reports: Colon - Tobacco Use Smoking Status *Q: Never Smoker Second Hand Smoke Exposure: No - Caffeine Use Caffeine Use: Reports: Coffee - Alcohol Use Days Per Week of Alcohol Use: 0 Number of Drinks Per Day: 0 Total Drinks Per Week: 0 - Recreational Drug Use Recreational Drug Use: No Drug Use in Last 12 Months: No - Living Situation & Occupation Living situation: Reports: Occupation: Retired ED ROS GENERAL - Review of Systems Review Of Systems: See Below Constitutional: Denies: Fever, Chills HEENT: Reports: No Symptoms Respiratory: Reports: No Symptoms Cardiovascular: Reports: No Symptoms Endocrine: Reports: No Symptoms GI/Abdominal: Reports: Abdominal Pain, Other (History of dry heaves but not really vomiting, history of GERD). Denies: Diarrhea, Nausea, Vomiting : Reports: No Symptoms Musculoskeletal: Reports: Other (Myalgias) Skin: Reports: No Symptoms Neurological: Reports: No Symptoms Psychiatric: Reports: No Symptoms Hematologic/Lymphatic: Reports: No Symptoms ED EXAM, GENERAL - Physical Exam Exam: See Below Exam Limited By: No Limitations General Appearance: Alert, WD/WN, No Apparent Distress Eye Exam: Bilateral Eye: Normal Inspection Ears: Normal External Exam Nose: Normal Inspection Throat/Mouth: Normal Inspection, Normal Lips, Normal Voice, No Airway Compromise Head: Normocephalic Neck: Supple Respiratory/Chest: No Respiratory Distress, Lungs Clear, Normal Breath Sounds Cardiovascular: Regular Rate, Rhythm, No Murmur GI/Abdominal: Soft, Non-Tender, No Mass, Other (Bowel sounds were positive). No : Distended, Guarding, Rigid, Rebound, Tender Back Exam: Full Range of Motion Extremities: Normal Inspection, Normal Range of Motion, No Pedal Edema Neurological: Alert, Oriented Psychiatric: Normal Affect, Normal Mood Skin Exam: Warm, Dry, Other (Her lips or a nice red color to her skin itself does have a pale hue to it) Course - Vital Signs Last Recorded V/S: Last Vital Signs Temp 97.0 F 04/19/17 22:30 Pulse 85 04/19/17 22:30 Resp 16 04/19/17 22:30 BP 117/59 L 04/19/17 22:30 Pulse Ox 100 04/19/17 22:30 - Orders/Labs/Meds Orders: Active Orders 24 hr Category Date Time Status Abdomen 2V AP Flat Upright [CR] Stat Exams 04/19/17 23:32 Taken Abdomen Ltd [US] Stat Exams 04/20/17 01:23 Taken CULTURE BLOOD [BC] Stat Lab 04/20/17 04:36 Received CULTURE BLOOD [BC] Stat Lab 04/20/17 04:44 Received Blood Culture x2 Reflex Set [OM.PC] Stat Oth 04/20/17 04:06 Ordered Labs: Laboratory Tests 04/19/17 04/19/17 04/19/17 Range/Units 23:45 23:45 23:45 WBC 1.88 L* (3.98-10.04) K/mm3 RBC 1.75 L (3.98-5.22) M/mm3 Hgb 6.6 L* (11.2-15.7) gm/L Hct 20.8 L (34.1-44.9) % MCV 118.9 H (79.4-94.8) fl MCH 37.7 H (25.6-32.2) pg MCHC 31.7 L (32.2-35.5) g/dl RDW Std Deviation 65.8 H (36.4-46.3) fL Plt Count 76 L (182-369) K/mm3 MPV 11.8 (9.4-12.3) fl Neut % (Auto) 38.3 (34.0-71.1) % Lymph % (Auto) 37.8 (19.3-51.7) % [place] % (Auto) 6.9 (4.7-12.5) % Eos % (Auto) 11.7 H (0.7-5.8) Baso % (Auto) 4.8 H (0.1-1.2) % Neut # (Auto) 0.72 L (1.56-6.13) K/mm3 Lymph # (Auto) 0.71 L (1.18-3.74) K/mm3 [place] # (Auto) 0.13 L (0.24-0.36) K/mm3 Eos # (Auto) 0.22 (0.04-0.36) K/mm3 Baso # (Auto) 0.09 H (0.01-0.08) K/mm3 Manual Slide Review Abnormal smear Sodium 143 (136-145) mEq/L Potassium 3.0 L (3.5-5.1) mEq/L Chloride 105 (98-107) mEq/L Carbon Dioxide 26 (21-32) mEq/L Anion Gap 15.0 (5-15) BUN 14 (7-18) mg/dL Creatinine 1.0 (0.55-1.02) mg/dL Est Cr Clr Drug Dosing 38.44 mL/min Estimated GFR (MDRD) 54 (>60) mL/min BUN/Creatinine Ratio 14.0 (14-18) Glucose 117 H (83-115) mg/dL Calcium 8.6 (8.5-10.1) mg/dL Total Bilirubin 1.7 H (0.2-1.0) mg/dL AST 179 H (15-37) U/L ALT 141 H (14-59) U/L Alkaline Phosphatase 138 H (46-116) U/L Total Protein 7.3 (6.4-8.2) g/dl Albumin 3.2 L (3.4-5.0) g/dl Globulin 4.1 gm/dL Albumin/Globulin Ratio 0.8 L (1-2) Lipase 25359 H (73-393) U/L Meds: Medications Discontinued Medications Generic Name Dose Route Start Last Admin Trade Name Freq PRN Reason Stop Dose Admin Piperacillin Sod/Tazobactam 100 mls @ 200 mls/hr 04/20/17 04:18 04/20/17 04: 50 Sod 4.5 gm/ Sodium Chloride IV 04/20/17 04:47 200 mls/hr ONETIME ONE Administration Ondansetron HCl 4 mg 04/20/17 05:01 04/20/17 05:10 Zofran IVPUSH 04/20/17 05:02 4 mg ONETIME ONE Administration - Radiology Interpretation Free Text/Narrative:: Sounds shows cholelithiasis with acute cholecystitis. - Re-Assessments/Exams Free Text/Narrative Re-Assessment/Exam: 04/20/17 04:15 I spoke to the patient regarding the ultrasound report and her blood work and that she will need be needing to go to [facility] for stabilization of her medical problem before they can do anything surgical. 04/20/17 04:[address] Verdugo who is the hospitalist at [facility] and she is willing to accept the patient in transport for further evaluation and treatment. 04/20/17 04:31 I spoke to the patient again about being transferred to [facility] and that will have an ambulance and will take her there for evaluation and treatment. She is going to call her and when she gets here all explain what is going on with her and will get her transferred to [facility] in [place]. Departure - Departure Time of Disposition: 04:26 Disposition: DC/Tfer to [facility] 02 Reason for Transfer *Q: Other (See the diagnosis) Condition: Fair Clinical Impression: Acute cholecystitis, Cholelithiasis and acute cholecystitis with obstruction, Acute pancreatitis due to calculus of common bile duct, Myelodysplastic syndrome , Severe anemia, Thrombocytopenia, Hypokalemia Leukopenia Qualifiers: Leukopenia type: unspecified Qualified Code(s): D72.819 - Decreased white blood cell count, unspecified Referrals: Floresita Boyle, PHOTO MANAGER [Primary Care Provider] - Additional Instructions: I spoke to Dr. Verdugo at [facility] and she accepts the patient in transport for further evaluation and treatment ED Communication - ED Communication Date/Time Date: 04/20/17 Time Called: 04:26 - Discussed Case With (1) Person/s Notified (1): Dr. Verdugo (Accepts in transport to [facility]) - My Orders Last 24 Hours: My Active Orders 04/19/17 23:32 Abdomen 2V AP Flat Upright [CR] Stat 04/20/17 01:23 Abdomen Ltd [US] Stat 04/20/17 04:06 Blood Culture x2 Reflex Set [OM.PC] Stat 04/20/17 04:36 CULTURE BLOOD [BC] Stat 04/20/17 04:44 CULTURE BLOOD [BC] Stat - Assessment/Plan Last 24 Hours: My Active Orders 04/19/17 23:32 Abdomen 2V AP Flat Upright [CR] Stat 04/20/17 01:23 Abdomen Ltd [US] Stat 04/20/17 04:06 Blood Culture x2 Reflex Set [OM.PC] Stat 04/20/17 04:36 CULTURE BLOOD [BC] Stat 04/20/17 04:44 CULTURE BLOOD [BC] Stat
[2017-04-20] MEDS ORDERED: Piperacillin/Tazobactam 4.5 GM in Sodium Chloride 0.9% 100 ML IV ONE (04:18)
[2017-04-20] MEDS ORDERED: Ondansetron 4 MG/2 ML SDV IVPUSH ONE (05:01)
--- NOTE | 2017-04-21 17:44 | CR ---
Abdomen: Supine and upright views of the abdomen were obtained. Comparison: Prior abdominal x-ray of 01/08/17. Bowel gas pattern appears normal. Surgical anastomotic sutures are seen within the right lower abdomen. Slight degenerative change is scattered within the spine. Calcification is noted within the left lower pelvis compatible with phlebolith. Slight arterial calcification is also seen within the pelvis. No free air is seen. Impression: 1. Incidental findings. Nothing acute is appreciated on two-view abdominal x-ray. Diagnostic code #2
--- NOTE | 2017-04-21 17:44 | US ---
Limited abdominal ultrasound: Multiple real-time images of the upper right abdomen were obtained. Comparison: No prior abdominal ultrasound, prior CT abdomen and pelvis exam dated 09/29/09 as well as previous abdominal x-rays of 04/19/17 and 01/08/17. Liver is echogenic compatible with fatty infiltration. This finding is seen on prior CT exam. Pancreas appears unremarkable as seen. Layering gallstones are seen within the gallbladder. Pericholecystic fluid is seen around the gallbladder. Common bile duct appears within normal limits. Right kidney shows no hydronephrosis or mass. Right kidney has a length of 9.3 cm. Portal vein shows normal hepatopedal flow. Impression: 1. Fatty infiltration within the liver. 2. Small layering gallstones within the gallbladder. Pericholecystic fluid is seen. Findings suspicious for acute cholecystitis. Diagnostic code #5 Agree with preliminary report issued by [employer] ([employer] preliminary report dictated on 04/20/17, 4:46 AM Central Time)
== END 2017-04-20 05:30 ==
LOC: JD.ED 22:14
DX: K80.01 Calculus of gallbladder with acute cholecystitis with obstruction (principal); K85.10 Biliary acute pancreatitis without necrosis or infection; D46.9 Myelodysplastic syndrome, unspecified; D69.6 Thrombocytopenia, unspecified; E87.6 Hypokalemia; Z79.899 Other long term (current) drug therapy
CPT/HCPCS: 36415; 74019; 74019-26; 76705; 76705-26; 80053; 83690; 85025; 87040; 96365; 96375; 99285-25; J2405; J2543; J7030

== ENCOUNTER 2017-05-15 15:17 | Emergency (ER) | payer MEDICARE, OTHER ==
[2017-05-15 15:44] VITALS: BP 114/81
[2017-05-15] MEDS ORDERED: Sodium Chloride 0.9% 1,000 ML IV ONE (16:45)
--- NOTE | 2017-05-15 16:46 | EDM.PDOC ---
ED HPI GENERAL MEDICAL PROBLEM - General Chief Complaint: Gastrointestinal Problem Stated Complaint: HEMMEROIDS W/BLEEDING AND DIARRHEA Time Seen by Provider: 05/15/17 16:43 Source of Information: Reports: Patient - History of Present Illness INITIAL COMMENTS - FREE TEXT/NARRATIVE: Patient is here for evaluation of diarrhea since . She states that she had a cholecystectomy by Dr. Stewart on 04/21/2017 and had been doing well after this. She had diarrhea starting , denies any nausea or vomiting. States that stools have been loose and watery very rarely formed. This has also flared up her hemorrhoids and she has had some hematochezia with bowel movements. Patient denies any nausea or vomiting. Denies any abdominal pain specifically. Denies fever or chills. She has been changing her diet, has been drinking protein shakes and she was told to increase her protein intake after having cholecystectomy. Rectal Pain Score (Numeric/FACES): 3 - Related Data Allergies Allergy/AdvReac Type Severity Reaction Status Date / Time Sulfa (Sulfonamide AdvReac Headache Verified 05/15/17 15:38 Antibiotics) Home Meds: Home Meds Cyanocobalamin (Vitamin B-12) [Vitamin B-12] 1,000 mcg PO DAILY 03/12/14 [ History] Latanoprost [Xalatan 0.005% Ophth Soln] 1 drop EYEBOTH BEDTIME 02/08/15 [History ] Pantoprazole Sodium [Protonix] 40 mg PO DAILY 03/02/16 [History] Melatonin 3 mg PO BEDTIME PRN 10/25/16 [History] Turmeric Root Extract [Turmeric] 500 mg PO DAILY 10/25/16 [History] Ciprofloxacin [Ciprofloxacin HCl] 500 mg PO BID 01/08/17 [History] Lenalidomide [Revlimid] 5 mg PO ASDIRECTED 01/08/17 [History] Past Medical History HEENT History: Reports: Impaired Vision Other Gastrointestinal History: ulcerative colitis, esophagitis, 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 , diverticulitis 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: Musculoskeletal History: Reports: Arthritis Hematologic History: Reports: Anemia, Other (See Below) Other Hematologic History: myelodysplastic syndrome (MDS) - Infectious Disease History Infectious Disease History: Reports: Measles - Past Surgical History GI Surgical History: Reports: Cholecystectomy Other GI Surgeries/Procedures: hemorrhoidectomy Social & Family History - Family History Family Medical History: Noncontributory Oncologic: Reports: Colon - Tobacco Use Smoking Status *Q: Never Smoker Second Hand Smoke Exposure: No - Caffeine Use Caffeine Use: Reports: Coffee - Alcohol Use Days Per Week of Alcohol Use: 0 Number of Drinks Per Day: 0 Total Drinks Per Week: 0 - Recreational Drug Use Recreational Drug Use: No Drug Use in Last 12 Months: No - Living Situation & Occupation Living situation: Reports: Occupation: Retired ED ROS GENERAL - Review of Systems Review Of Systems: See Below Constitutional: Reports: Decreased Appetite. Denies: Fever, Chills, Malaise, Weakness HEENT: Reports: No Symptoms Respiratory: Reports: No Symptoms Cardiovascular: Reports: No Symptoms GI/Abdominal: Reports: Diarrhea, Hematochezia, Other (Hemorrhoids). Denies: Abdominal Pain, Anorexia, Decreased Appetite, Hematemesis, Melena, Nausea : Reports: No Symptoms Skin: Reports: No Symptoms ED EXAM, GI/ABD - Physical Exam Exam: See Below Exam Limited By: No Limitations General Appearance: Alert, WD/WN, No Apparent Distress Throat/Mouth: Normal Oropharynx Head: Atraumatic, Normocephalic Neck: Normal Inspection, Supple, Non-Tender Respiratory/Chest: No Respiratory Distress, Lungs Clear, Normal Breath Sounds Cardiovascular: Normal Peripheral Pulses, Regular Rate, Rhythm, No Murmur GI/Abdominal Exam: Normal Bowel Sounds, Soft, Non-Tender Rectal (Female) Exam: Hemorrhoids (Inflamed external hemorrhoids, not currently thrombosed.) Neurological: Alert, Oriented Skin Exam: Warm, Dry, Intact Course - Vital Signs Last Recorded V/S: Last Vital Signs Temp 97.6 F 05/15/17 15:38 Pulse 82 05/15/17 15:38 Resp 20 05/15/17 15:38 BP 114/81 05/15/17 15:38 Pulse Ox 97 05/15/17 15:38 - Orders/Labs/Meds Orders: Active Orders 24 hr Category Date Time Status Abdomen 1V Flat [CR] Stat Exams 05/15/17 16:45 Taken Labs: Laboratory Tests 05/15/17 05/15/17 Range/Units 17:22 17:22 WBC 3.52 L (3.98-10.04) K/mm3 RBC 2.70 L (3.98-5.22) M/mm3 Hgb 9.5 L (11.2-15.7) gm/L Hct 30.3 L (34.1-44.9) % MCV 112.2 H (79.4-94.8) fl MCH 35.2 H (25.6-32.2) pg MCHC 31.4 L (32.2-35.5) g/dl RDW Std Deviation 79.3 H (36.4-46.3) fL Plt Count 121 L (182-369) K/mm3 MPV 10.0 (9.4-12.3) fl Neutrophils % (Manual) 56 (40-60) % Band Neutrophils % 0 (0-10) % Lymphocytes % (Manual) 30 (20-40) % Atypical Lymphs % 0 % Monocytes % (Manual) 9 (2-10) % Eosinophils % (Manual) 4 (0.7-5.8) % Basophils % (Manual) 1 (0.1-1.2) Platelet Estimate Decreased Plt Morphology Comment Normal Polychromasia 1+ slight Poikilocytosis 1+ slight Anisocytosis 2+ moderate Microcytosis 1+ slight Macrocytosis 1+ slight Tear Drop Cells 1+ slight RBC Morph Comment Abnormal Sodium 141 (136-145) mEq/L Potassium 3.6 (3.5-5.1) mEq/L Chloride 105 (98-107) mEq/L Carbon Dioxide 26 (21-32) mEq/L Anion Gap 13.6 (5-15) BUN 13 (7-18) mg/dL Creatinine 1.1 H (0.55-1.02) mg/dL Est Cr Clr Drug Dosing 34.95 mL/min Estimated GFR (MDRD) 48 (>60) mL/min BUN/Creatinine Ratio 11.8 L (14-18) Glucose 101 (83-115) mg/dL Calcium 9.2 (8.5-10.1) mg/dL Total Bilirubin 1.1 H (0.2-1.0) mg/dL AST 18 (15-37) U/L ALT 34 (14-59) U/L Alkaline Phosphatase 80 (46-116) U/L C-Reactive Protein 1.6 H* (<1.0) mg/dL Total Protein 7.8 (6.4-8.2) g/dl Albumin 3.8 (3.4-5.0) g/dl Globulin 4.0 gm/dL Albumin/Globulin Ratio 1.0 (1-2) Lipase 339 (73-393) U/L Meds: Medications Discontinued Medications Generic Name Dose Route Start Last Admin Trade Name Lacie PRN Reason Stop Dose Admin Sodium Chloride 1,000 mls @ 999 mls/hr 05/15/17 16:45 05/15/17 17:20 Normal Saline IV 05/15/17 17:45 999 mls/hr ONETIME ONE Administration - Re-Assessments/Exams Free Text/Narrative Re-Assessment/Exam: Patient's hemoglobin is 9.5, this is above her baseline with her mild dysplastic syndrome. LFTs and lipase have returned to normal after a cholecystectomy. Her bilirubin is 1.1. CRP is 1.6. Patient is not currently having any abdominal pain nor has she had any diarrhea since being here. I suspect that her diarrhea is actually related to her protein shakes that she has started, I do not feel that she is tolerating these adequately after her cholecystectomy. I recommend that she have a BRAT diet and start a daily probiotic. As for her hemorrhoids she is to use an [id number] hemorrhoid suppository at bedtime. May use Preparation H cream during the day and her witch tyra pads as needed. Patient is to follow-up with her primary provider within the next week or certainly return to the emergency room if needed. 05/15/17 19:23 05/15/17 19:24 Departure - Departure Time of Disposition: 19:25 Disposition: Home, Self-Care 01 Condition: Good Clinical Impression: Inflamed external hemorrhoid Diarrhea Qualifiers: Diarrhea type: unspecified type Qualified Code(s): R19.7 - Diarrhea, unspecified - Discharge Information Instructions: Diarrhea, Adult Referrals: Floresita Boyle NP [Primary Care Provider] - Forms: ED Department Discharge Additional Instructions: I recommend that you stop drinking your protein shakes for now. Very bland diet, no sugar/spice/dairy foods. Started a daily probiotic such as Floragen. For your hemorrhoids use an [id number] hemorrhoid suppository at bedtime. You may continue Preparation H cream and witch tyra pads during the day. Follow-up with your primary provider within a week or certainly return to emergency room if needed. - My Orders Last 24 Hours: My Active Orders 05/15/17 16:45 Abdomen 1V Flat [CR] Stat - Assessment/Plan Last 24 Hours: My Active Orders 05/15/17 16:45 Abdomen 1V Flat [CR] Stat
--- NOTE | 2017-05-16 07:32 | CR ---
Abdomen: Supine view of the abdomen was obtained. Comparison: Prior abdominal x-ray of 04/19/17. Surgical clips are seen from prior cholecystectomy. Bowel gas pattern appears within normal limits. Degenerative change is partially visualized within the spine. Phlebolith noted within the left pelvis. Mild arterial calcification is seen within the pelvis. Impression: 1. Incidental findings. Diagnostic code #2
== END 2017-05-15 19:36 | disposition home or self-care (01) ==
LOC: JD.ED 15:17
DX: K64.4 Residual hemorrhoidal skin tags (principal); R19.7 Diarrhea, unspecified; Z88.2 Allergy status to sulfonamides; Z79.899 Other long term (current) drug therapy
CPT/HCPCS: 36415; 74018; 80053; 83690; 85025; 86140; 96360; 99284; J7040; 99283

== ENCOUNTER 2018-04-01 08:30 | Day surgery (SDC) | payer MEDICARE, OTHER ==
[~2018-04-01 08:30] MED LIST: Cefuroxime 10 MG/ML SYRINGE EYERT SCH; Lidocaine 1% PF 2 ML SDV INJECT SCH; Pilocarpine 4% Ophth Soln 15 ML Bot EYERT SCH; Polymyxin B/Trimethoprim 10 ML Bottle EYERT SCH
[2018-04-01] MEDS: Ofloxacin 0.3% Ophth Soln 5 ML Bottle EYERT SCH ×3 (09:08→10:53)
--- NOTE | 2018-04-01 09:17 | PCM.PREANE ---
Preanesthetic Assessment - Procedure Proposed Procedure: cataract right - Anesthesia/Transfusion/Family Hx Anesthesia History: Prior Anesthesia Reaction (pt states has had dry heaves in the past but recent surgeries has been ok) Family History of Anesthesia Reaction: No Transfusion History: Prior Transfusion Without Reaction - Review of Systems General: No Symptoms Pulmonary: No Symptoms Cardiovascular: No Symptoms Gastrointestinal: Diarrhea (usual) Neurological: No Symptoms Other: Reports: Liver Problems (fatty liver) - Physical Assessment NPO Status Date: 03/31/18 NPO Status Time: 22:00 (sip with pill this am) Pulse: 76 O2 Sat by Pulse Oximetry: 99 Respiratory Rate: 16 Blood Pressure: 106/60 Temperature: 97.1 F Height: 5 ft 3 in Weight: 71.214 kg ASA Class: 2 Mental Status: Alert & Oriented x3 Airway Class: Mallampati = 1 Dentition: Reports: Normal Dentition Thyro-Mental Finger Breadths: 3 Mouth Opening Finger Breadths: 3 ROM/Head Extension: Full Lungs: Clear to Auscultation, Normal Respiratory Effort Cardiovascular: Regular Rate, Regular Rhythm - Allergies Allergies/Adverse Reactions: Allergies Allergy/AdvReac Type Severity Reaction Status Date / Time Sulfa (Sulfonamide AdvReac Headache Verified 03/31/18 15:22 Antibiotics) - Blood Blood Available: No - Acknowledgements Anesthesia Type Planned: MAC Pt an Appropriate Candidate for the Planned Anesthesia: Yes Alternatives and Risks of Anesthesia Discussed w Pt/Guardian: Yes Pt/Guardian Understands and Agrees with Anesthesia Plan: Yes PreAnesthesia Questionnaire HEENT History: Reports: Cataract, Impaired Vision Cardiovascular History: Reports: None Respiratory History: Reports: Other (See Below) Other Respiratory History: cough Gastrointestinal History: Reports: Chronic Diarrhea, GERD Other Gastrointestinal History: ulcerative colitis, esophagitis, 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 , diverticulitis Genitourinary History: Reports: UTI, 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: Musculoskeletal History: Reports: Arthritis Endocrine/Metabolic History: Reports: None Hematologic History: Reports: Anemia, Other (See Below) Other Hematologic History: myelodysplastic syndrome (MDS) - Infectious Disease History Infectious Disease History: Reports: Measles - Past Surgical History Respiratory Surgical History: Reports: None GI Surgical History: Reports: Cholecystectomy, Colon (colon resection due to polyp), Colonoscopy Other GI Surgeries/Procedures: hemorrhoidectomy Female Surgical History: Reports: Hysterectomy - SUBSTANCE USE Smoking Status *Q: Never Smoker Tobacco Use Within Last Twelve Months: No Second Hand Smoke Exposure: No Days Per Week of Alcohol Use: 0 Recreational Drug Use History: No - HOME MEDS Home Medications: Home Meds Latanoprost [Xalatan 0.005% Ophth Soln] 1 drop EYEBOTH BEDTIME 02/08/15 [History ] Pantoprazole Sodium [Protonix] 40 mg PO DAILY 03/02/16 [History] Melatonin 3 mg PO BEDTIME PRN 10/25/16 [History] Lenalidomide [Revlimid] 5 mg PO ASDIRECTED 01/08/17 [History] Acetaminophen [Tylenol] 500 mg PO Q6H PRN 01/21/18 [History] Aspirin [Halfprin] 81 mg PO DAILY 01/21/18 [History] Loperamide [Imodium] 2 mg PO BID PRN 01/21/18 [History] Diphenoxylate HCl/Atropine [Diphenoxylate-Atrop 2.5-0.025] 1 tab PO ASDIRECTED 02/24/18 [History] - CURRENT (IN HOUSE) MEDS Current Meds: Current Medications Brimonidine Tartrate (Alphagan 0.2% Ophth Soln) 0 ml EYERT ASDIRECTED MAYRA Stop: 04/01/18 18:00 Cefuroxime Sodium (Zinacef) 0 mg EYERT ASDIRECTED MAYRA Stop: 04/01/18 18:00 Lidocaine HCl (Xylocaine-Mpf 1%) 0 ml INJECT ASDIRECTED MAYRA Stop: 04/01/18 18:00 Ofloxacin (Ocuflox 0.3% Ophth Soln) 0 ml EYERT ASDIRECTED MAYRA Stop: 04/01/18 18:00 Last Admin: 04/01/18 09:08 Dose: 1 drop Phenylephrine HCl (Francesco-Synephrine 2.5% Ophth Soln) 0 ml EYERT ASDIRECTED MAYRA Stop: 04/01/18 18:00 Pilocarpine HCl (Pilocar 4% Ophth Soln) 0 ml EYERT ASDIRECTED MAYRA Stop: 04/01/18 18:00 Tetracaine HCl (Tetracaine 0.5% Steri-Unit Ciara) 0 ml EYERT ASDIRECTED MAYRA Stop: 04/01/18 18:00 Tropicamide (Mydriacyl 1% Ophth Soln) 0 ml EYERT ASDIRECTED MAYRA Stop: 04/01/18 18:00 Discontinued Medications Polymyxin/Trimethoprim Sulfate (Polytrim Ophth Soln) 0 ml EYERT ASDIRECTED MAYRA
[2018-04-01] MEDS: Brimonidine 0.2% Ophth Soln 5 ML Bottle EYERT SCH ×3 (09:18→10:53)
[2018-04-01] MEDS: Phenylephrine 2.5% Ophth Soln 2 ML Bot EYERT SCH ×6 (09:23→10:32)
[2018-04-01] MEDS: Tropicamide 1% Ophth Soln 15 ML Bottle EYERT SCH ×4 (09:30→10:17)
[2018-04-01] MEDS: Tetracaine HCl/PF 0.5% 4 ML Bottle EYERT SCH ×4 (10:22→10:41)
--- NOTE | 2018-04-01 10:57 | PCM48HPAN ---
Post Anesthesia Note - EVALUATION WITHIN 48HRS OF ANESTHETIC Vital Signs in Normal Range: Yes Patient Participated in Evaluation: Yes Respiratory Function Stable: Yes Airway Patent: Yes Cardiovascular Function Stable: Yes Hydration Status Stable: Yes Pain Control Satisfactory: Yes Nausea and Vomiting Control Satisfactory: Yes Mental Status Recovered: Yes Pulse Rate: 74 SaO2: 97 Resp Rate: 12 Temperature: 36.2 C Blood Pressure: 107/52
[2018-04-01 13:39] VITALS: BP 100/54
== END 2018-04-01 11:10 | disposition home or self-care (01) ==
LOC: JD.SDS 08:30
PROVIDERS: ATTEND Ophthalmology
DX: H25.811 Combined forms of age-related cataract, right eye (principal); D46.9 Myelodysplastic syndrome, unspecified; K21.9 Gastro-esophageal reflux disease without esophagitis; M19.90 Unspecified osteoarthritis, unspecified site; Z98.42 Cataract extraction status, left eye; Z96.1 Presence of intraocular lens; Z88.2 Allergy status to sulfonamides; Z88.8 Allergy status to other drugs, medicaments and biological substances; Z79.82 Long term (current) use of aspirin; Z79.899 Other long term (current) drug therapy
CPT/HCPCS: 66984; A9270; J0697; C1780; J2001

== ENCOUNTER 2018-04-29 08:02 | Emergency (ER) | payer MEDICARE, OTHER ==
[2018-04-29] MEDS ORDERED: Sodium Chloride 0.9% 10 ML Syringe FLUSH PRN (08:38)
[2018-04-29] MEDS ORDERED: Potassium Chloride 20 MEQ Tab.ER PO ONE (10:02)
--- NOTE | 2018-04-29 11:15 | EDM.PDOC ---
ED HPI GENERAL MEDICAL PROBLEM - General Chief Complaint: Syncope Stated Complaint: [facility] Time Seen by Provider: 04/29/18 08:20 Source of Information: Reports: Patient, EMS History Limitations: Reports: No Limitations - History of Present Illness INITIAL COMMENTS - FREE TEXT/NARRATIVE: The patient presents by [facility] for syncope. The patient was on the toilet when she got lightheaded. She passed out. She did not hit her head or hurt neck. She has a history of myelodysplastic syndrome. She will need transfusions when she feels like this. She just had a transfusion on April 09. She denies headache, neck pain, chest pain or shortness of breath. She has no fever or chills. She has generalized weakness and she has dry mouth. She sees Dr Rouse for this. Onset: Gradual Duration: Day(s): Severity: Moderate Improves with: Reports: None Worsens with: Reports: None Associated Symptoms: Denies: Chest Pain, Cough, Fever/Chills, Headaches, Nausea/ Vomiting, Shortness of Breath - Related Data Allergies Allergy/AdvReac Type Severity Reaction Status Date / Time Sulfa (Sulfonamide AdvReac Headache Verified 04/29/18 08:12 Antibiotics) Home Meds: Home Meds Latanoprost [Xalatan 0.005% Ophth Soln] 1 drop EYEBOTH BEDTIME 02/08/15 [History ] Pantoprazole Sodium [Protonix] 40 mg PO DAILY 03/02/16 [History] Melatonin 3 mg PO BEDTIME PRN 10/25/16 [History] Lenalidomide [Revlimid] 5 mg PO ASDIRECTED 01/08/17 [History] Acetaminophen [Tylenol] 500 mg PO Q6H PRN 01/21/18 [History] Aspirin [Halfprin] 81 mg PO DAILY 01/21/18 [History] Loperamide [Imodium] 2 mg PO BID PRN 01/21/18 [History] Diphenoxylate HCl/Atropine [Diphenoxylate-Atrop 2.5-0.025] 1 tab PO ASDIRECTED 02/24/18 [History] Potassium Chloride 10 meq PO DAILY #15 capsule.er 04/29/18 [Rx] Past Medical History HEENT History: Reports: Cataract, Impaired Vision Cardiovascular History: Reports: None Respiratory History: Reports: Other (See Below) Other Respiratory History: cough Gastrointestinal History: Reports: Chronic Diarrhea, GERD Other Gastrointestinal History: ulcerative colitis, esophagitis, 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 , diverticulitis Genitourinary History: Reports: UTI, 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: Musculoskeletal History: Reports: Arthritis Endocrine/Metabolic History: Reports: None Hematologic History: Reports: Anemia, Other (See Below) Other Hematologic History: myelodysplastic syndrome (MDS) - Infectious Disease History Infectious Disease History: Reports: Measles - Past Surgical History Respiratory Surgical History: Reports: None GI Surgical History: Reports: Cholecystectomy, Colon, Colonoscopy Other GI Surgeries/Procedures: hemorrhoidectomy Female Surgical History: Reports: Hysterectomy Social & Family History - Family History Family Medical History: Noncontributory HEENT: Reports: Impaired Vision Oncologic: Reports: Colon - Tobacco Use Smoking Status *Q: Never Smoker - Caffeine Use Caffeine Use: Reports: Coffee - Recreational Drug Use Recreational Drug Use: No - Living Situation & Occupation Living situation: Reports: Occupation: Retired ED ROS GENERAL - Review of Systems Review Of Systems: See Below Constitutional: Reports: No Symptoms HEENT: Reports: No Symptoms Respiratory: Reports: No Symptoms Cardiovascular: Reports: Syncope. Denies: Chest Pain Endocrine: Reports: No Symptoms GI/Abdominal: Reports: Abdominal Pain, Nausea, Vomiting Musculoskeletal: Reports: No Symptoms Skin: Reports: No Symptoms - Physical Exam Exam: See Below Exam Limited By: No Limitations General Appearance: Alert, No Apparent Distress Ears: Normal External Exam Nose: Normal Inspection Head Exam: Atraumatic, Normocephalic Neck: Normal Inspection Respiratory/Chest: No Respiratory Distress, Lungs Clear, Normal Breath Sounds Cardiovascular: Regular Rate, Rhythm, No Edema, No Murmur GI/Abdominal: Soft, Non-Tender, No Organomegaly, No Mass Course - Vital Signs Last Recorded V/S: Last Vital Signs Temp 96.9 F 04/29/18 13:18 Pulse 70 04/29/18 13:18 Resp 12 04/29/18 13:18 BP 110/66 04/29/18 13:18 Pulse Ox 99 04/29/18 08:09 - Orders/Labs/Meds Orders: Active Orders 24 hr Category Date Time Status Cardiac Monitoring [RC] . DIRECTED Care 04/29/18 08:38 Active EKG Documentation Completion [RC] STAT Care 04/29/18 08:38 Active Peripheral IV Care [RC] . DIRECTED Care 04/29/18 08:38 Active Sodium Chloride 0.9% [Saline Flush] Med 04/29/18 08:38 Active 10 ml FLUSH ASDIRECTED PRN Peripheral IV Insertion Adult [OM.PC] Stat Oth 04/29/18 08:38 Ordered Transfuse PRBC [Transfuse Red Blood Cells] [COMM] Stat Oth 04/29/18 08:39 Ordered Medication Orders Sodium Chloride (Saline Flush) 10 ml FLUSH ASDIRECTED PRN PRN Reason: Keep Vein Open Last Admin: 04/29/18 08:43 Dose: 10 ml Labs: Laboratory Tests 04/29/18 04/29/18 04/29/18 Range/Units 09:08 09:08 09:08 WBC 2.51 L (3.98-10.04) K/mm3 RBC 2.27 L (3.98-5.22) M/mm3 Hgb 7.5 L (11.2-15.7) gm/L Hct 22.1 L (34.1-44.9) % MCV 97.4 H (79.4-94.8) fl MCH 33.0 H (25.6-32.2) pg MCHC 33.9 (32.2-35.5) g/dl RDW Std Deviation 67.6 H (36.4-46.3) fL Plt Count 38 L (182-369) K/mm3 MPV 11.0 (9.4-12.3) fl Neut % (Auto) 24.3 L (34.0-71.1) % Lymph % (Auto) 27.9 (19.3-51.7) % [place] % (Auto) 29.1 H (4.7-12.5) % Eos % (Auto) 17.5 H (0.7-5.8) Baso % (Auto) 1.2 (0.1-1.2) % Neut # (Auto) 0.61 L (1.56-6.13) K/mm3 Lymph # (Auto) 0.70 L (1.18-3.74) K/mm3 [place] # (Auto) 0.73 H (0.24-0.36) K/mm3 Eos # (Auto) 0.44 H (0.04-0.36) K/mm3 Baso # (Auto) 0.03 (0.01-0.08) K/mm3 Manual Slide Review Abnormal smear Sodium 142 (136-145) mEq/L Potassium 2.4 L* (3.5-5.1) mEq/L Chloride 104 (98-107) mEq/L Carbon Dioxide 26 (21-32) mEq/L Anion Gap 14.4 (5-15) BUN 11 (7-18) mg/dL Creatinine 1.1 H (0.55-1.02) mg/dL Est Cr Clr Drug Dosing 34.41 mL/min Estimated GFR (MDRD) 48 (>60) mL/min BUN/Creatinine Ratio 10.0 L (14-18) Glucose 102 (83-115) mg/dL Calcium 8.6 (8.5-10.1) mg/dL Total Bilirubin 1.8 H (0.2-1.0) mg/dL AST 18 (15-37) U/L ALT 28 (14-59) U/L Alkaline Phosphatase 77 (46-116) U/L Troponin I < 0.017 (0.00-0.056) ng/mL Total Protein 7.3 (6.4-8.2) g/dl Albumin 3.2 L (3.4-5.0) g/dl Globulin 4.1 gm/dL Albumin/Globulin Ratio 0.8 L (1-2) Blood Type B POSITIVE Gel Antibody Screen Negative Crossmatch See Detail Meds: Medications Generic Name Dose Route Start Last Admin Trade Name Freq PRN Reason Stop Dose Admin Sodium Chloride 10 ml 04/29/18 08:38 04/29/18 08:43 Saline Flush FLUSH 10 ml ASDIRECTED PRN Administration Keep Vein Open Discontinued Medications Generic Name Dose Route Start Last Admin Trade Name Freq PRN Reason Stop Dose Admin Sodium Chloride Confirm 04/29/18 13:14 Normal Saline Administered 04/29/18 13:15 Dose 100 mls @ as directed .ROUTE .STK-MED ONE Potassium Chloride 20 meq 04/29/18 10:02 04/29/18 10:11 Klor-Con M20 PO 04/29/18 10:03 20 meq ONETIME ONE Administration - Re-Assessments/Exams Free Text/Narrative Re-Assessment/Exam: 04/29/18 11:16 I ordered an IV saline lock, labs, type and screen and 2 units of PRBCs. 04/29/18 11:17 Her WBC was low at 2.5. Her Hgb was low at 7.5. Her platelets were low at 38. Her K was low at 2.4. I ordered her 20meq of potassium orally. Her creatinine was slightly elevated at 1.1. Her troponin was normal. 04/29/18 14:54 I will get her on some potassium and discharge when the 2nd transfusion is in. Departure - Departure Time of Disposition: 15:30 Disposition: Home, Self-Care 01 Condition: Good Clinical Impression: Myelodysplasia (myelodysplastic syndrome), Severe anemia, Hypokalemia - Discharge Information *PRESCRIPTION DRUG MONITORING PROGRAM REVIEWED*: Not Applicable *COPY OF PRESCRIPTION DRUG MONITORING REPORT IN PATIENT ARIELLE: Not Applicable Prescriptions: Potassium Chloride 10 meq PO DAILY #15 capsule.er Referrals: Rashid Rouse MD [Primary Care Provider] - 1 Week Forms: ED Department Discharge Additional Instructions: Take your medication as prescribed. Take potassium daily and have that rechecked in about a week. Please return if you are worse. - My Orders Last 24 Hours: My Active Orders 04/29/18 08:38 Cardiac Monitoring [RC] . DIRECTED EKG Documentation Completion [RC] STAT Peripheral IV Care [RC] . DIRECTED Sodium Chloride 0.9% [Saline Flush] 10 ml FLUSH ASDIRECTED PRN Peripheral IV Insertion Adult [OM.PC] Stat 04/29/18 08:39 Transfuse PRBC [Transfuse Red Blood Cells] [COMM] Stat - Assessment/Plan Last 24 Hours: My Active Orders 04/29/18 08:38 Cardiac Monitoring [RC] . DIRECTED EKG Documentation Completion [RC] STAT Peripheral IV Care [RC] . DIRECTED Sodium Chloride 0.9% [Saline Flush] 10 ml FLUSH ASDIRECTED PRN Peripheral IV Insertion Adult [OM.PC] Stat 04/29/18 08:39 Transfuse PRBC [Transfuse Red Blood Cells] [COMM] Stat
[2018-04-29] MEDS ORDERED: Sodium Chloride 0.9% 100 ML ONE (13:14)
[2018-04-29 13:21] VITALS: BP 110/66
== END 2018-04-29 15:45 | disposition home or self-care (01) ==
LOC: JD.ED 08:02
DX: D46.9 Myelodysplastic syndrome, unspecified (principal); E87.6 Hypokalemia; Z88.2 Allergy status to sulfonamides; Z79.899 Other long term (current) drug therapy; Z79.82 Long term (current) use of aspirin
CPT/HCPCS: 36415; 36430; 80053; 84484; 85025; 86850; 86900; 86901; 86922; 93005; 99285; A9270; P9016; 93010; 99284

== ENCOUNTER 2018-05-16 15:55 | Emergency (ER) | payer MEDICARE, OTHER ==
[2018-05-16] MEDS ORDERED: Sodium Chloride 0.9% 10 ML Syringe FLUSH PRN (16:37)
--- NOTE | 2018-05-16 16:47 | EDM.PDOC ---
ED HPI GENERAL MEDICAL PROBLEM - General Chief Complaint: Neurological Problem Stated Complaint: NUMBING IN JAW AND ARMS SPEECH DIFFICULTY Time Seen by Provider: 05/16/18 16:10 Source of Information: Reports: Patient, RN Notes Reviewed History Limitations: Reports: No Limitations - History of Present Illness INITIAL COMMENTS - FREE TEXT/NARRATIVE: Patient is a 77-year-old female who presents to the ED for the evaluation of numbness in her jaw and bilateral arms. The patient states that around 2:30 this afternoon while playing cards she felt the sudden onset of numbness in her left and right hands that radiated up her right and left arms and into her jaw line on both sides. She does not note any movement or traumatic incident that should have caused this, as she was only playing cards. She states that this time she also did have some numbness in her legs from her knees down to her toes. She was in the bathroom at this time and did call her to retrieve her from the bathroom. The patient states she did not have any headache, dizziness, blurred vision, double vision, unilateral weakness at this time. But she states she did not trust herself to walk because she could not feel her legs. She states that she has myelodysplastic syndrome for which she sees Dr. Rouse every 2 months. She states she is on Revlimid 21 days on and 7 days off; she is currently in the office cycle of her Revlimid. She states that her next appointment with Dr. Rouse is approximately June 11. She states that normally when her hemoglobin is low she has a single syncopal episode and knows that this is time to come in for a blood transfusion, however the numbness /tingling is different for her and she was worried that it may be something different. She did receive 2 units of packed red blood cells 2 weeks ago in the ED and also was started on a potassium supplement at home she states that this is a 10 mEq, and that she is taking this faithfully that she wants to get better. She denies any nausea/vomiting, blood in stool, chest pain/shortness of breath or abdominal pain. She states that she recently had lab work done on May 14 and her hemoglobin was found to be 9.5 at this time. - Related Data Allergies Allergy/AdvReac Type Severity Reaction Status Date / Time Sulfa (Sulfonamide AdvReac Headache Verified 04/29/18 08:12 Antibiotics) Home Meds: Home Meds Latanoprost [Xalatan 0.005% Ophth Soln] 1 drop EYEBOTH BEDTIME 02/08/15 [History ] Pantoprazole Sodium [Protonix] 40 mg PO DAILY 03/02/16 [History] Melatonin 3 mg PO BEDTIME PRN 10/25/16 [History] Lenalidomide [Revlimid] 5 mg PO ASDIRECTED 01/08/17 [History] Acetaminophen [Tylenol] 500 mg PO Q6H PRN 01/21/18 [History] Aspirin [Halfprin] 81 mg PO DAILY 01/21/18 [History] Loperamide [Imodium] 2 mg PO BID PRN 01/21/18 [History] Diphenoxylate HCl/Atropine [Diphenoxylate-Atrop 2.5-0.025] 1 tab PO ASDIRECTED 02/24/18 [History] Potassium Chloride 10 meq PO DAILY #15 capsule.er 04/29/18 [Rx] Past Medical History HEENT History: Reports: Cataract, Impaired Vision Cardiovascular History: Reports: None Respiratory History: Reports: Other (See Below) Other Respiratory History: cough Gastrointestinal History: Reports: Chronic Diarrhea, GERD Other Gastrointestinal History: ulcerative colitis, esophagitis, 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 , diverticulitis Genitourinary History: Reports: UTI, 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: Musculoskeletal History: Reports: Arthritis Endocrine/Metabolic History: Reports: None Hematologic History: Reports: Anemia, Other (See Below) Other Hematologic History: myelodysplastic syndrome (MDS) - Infectious Disease History Infectious Disease History: Reports: Measles - Past Surgical History Respiratory Surgical History: Reports: None GI Surgical History: Reports: Cholecystectomy, Colon, Colonoscopy Other GI Surgeries/Procedures: hemorrhoidectomy Female Surgical History: Reports: Hysterectomy Social & Family History - Family History Family Medical History: Noncontributory HEENT: Reports: Impaired Vision Oncologic: Reports: Colon - Tobacco Use Smoking Status *Q: Never Smoker - Caffeine Use Caffeine Use: Reports: Coffee, Soda - Living Situation & Occupation Living situation: Reports: Occupation: Retired ED ROS GENERAL - Review of Systems Review Of Systems: See Below Constitutional: Denies: Fever, Chills HEENT: Denies: Vertigo, Vision Change Respiratory: Reports: Cough. Denies: Shortness of Breath, Wheezing, Sputum Cardiovascular: Reports: No Symptoms Endocrine: Reports: No Symptoms GI/Abdominal: Reports: No Symptoms : Reports: No Symptoms Musculoskeletal: Reports: No Symptoms Skin: Reports: Pallor Neurological: Reports: Numbness, Tingling. Denies: Confusion, Dizziness, Headache, Pre-Existing Deficit, Seizure, Syncope, Trouble Speaking, Difficulty Walking, Weakness, Gait Disturbance Psychiatric: Reports: No Symptoms Hematologic/Lymphatic: Reports: No Symptoms Immunologic: Reports: No Symptoms ED EXAM, NEURO - Physical Exam Exam: See Below Exam Limited By: No Limitations General Appearance: Alert, WD/WN, No Apparent Distress Eye Exam: Bilateral Eye: EOMI, Normal Inspection, PERRL Ears: Normal External Exam, Normal Canal, Hearing Grossly Normal, Normal TMs Nose: Normal Inspection, Normal Mucosa, No Blood Throat/Mouth: Normal Inspection, Normal Teeth, Normal Oropharynx, No Airway Compromise Head Exam: Atraumatic, Normocephalic Neck: Normal Inspection, Supple, Non-Tender, Full Range of Motion Respiratory/Chest: No Respiratory Distress, Lungs Clear, Normal Breath Sounds, No Accessory Muscle Use, Chest Non-Tender Cardiovascular: Normal Peripheral Pulses, Regular Rate, Rhythm, No Murmur GI/Abdominal: Normal Bowel Sounds, Soft, Non-Tender, No Distention, No Mass Neurological: Alert, Normal Mood/Affect, Normal Dorsiflexion, Normal Plantar Flexion, Normal Gait, Normal Reflexes, No Motor/Sensory Deficits, Oriented x 3. No: Abnormal Finger to Nose, Abn 2 Pt Discrimination Extremities: Normal Inspection, Normal Range of Motion, Normal Capillary Refill Psychiatric: Normal Affect, Normal Mood Skin Exam: Warm, Dry, Intact, No Rash, Pallor (Globally) Course - Vital Signs Last Recorded V/S: Last Vital Signs Temp 97.5 F 05/16/18 20:32 Pulse 78 05/16/18 20:32 Resp 18 05/16/18 20:32 BP 103/75 05/16/18 20:32 Pulse Ox 97 05/16/18 20:32 - Orders/Labs/Meds Orders: Active Orders 24 hr Category Date Time Status Peripheral IV Care [RC] . DIRECTED Care 05/16/18 16:37 Active PACKED CELLS [RED BLOOD CELLS LP] [BBK] Stat Lab 05/16/18 17:00 Results TYPE AND SCREEN [BBK] Stat Lab 05/16/18 17:00 Results Sodium Chloride 0.9% [Normal Saline] 1,000 ml Med 05/16/18 20:15 Active IV ASDIRECTED Sodium Chloride 0.9% [Saline Flush] Med 05/16/18 16:37 Active 10 ml FLUSH ASDIRECTED PRN Peripheral IV Insertion Adult [OM.PC] Routine Oth 05/16/18 16:37 Ordered Transfuse Red Blood Cells [COMM] Stat Oth 05/16/18 17:47 Ordered Medication Orders Sodium Chloride (Normal Saline) 1,000 mls @ 150 mls/hr IV ASDIRECTED MAYRA Last Admin: 05/16/18 20:20 Dose: 150 mls/hr Sodium Chloride (Saline Flush) 10 ml FLUSH ASDIRECTED PRN PRN Reason: Keep Vein Open Last Admin: 05/16/18 18:29 Dose: 10 ml Labs: Laboratory Tests 05/16/18 05/16/18 05/16/18 Range/Units 17:00 17:00 17:00 WBC 1.42 L* (3.98-10.04) K/mm3 RBC 2.55 L (3.98-5.22) M/mm3 Hgb 8.0 L (11.2-15.7) gm/L Hct 24.3 L (34.1-44.9) % MCV 95.3 H (79.4-94.8) fl MCH 31.4 (25.6-32.2) pg MCHC 32.9 (32.2-35.5) g/dl RDW Std Deviation 60.7 H (36.4-46.3) fL Plt Count 37 L (182-369) K/mm3 MPV 11.3 (9.4-12.3) fl Neutrophils % (Manual) 34 L (40-60) % Band Neutrophils % 0 (0-10) % Lymphocytes % (Manual) 39 (20-40) % Atypical Lymphs % 0 % Monocytes % (Manual) 17 H (2-10) % Eosinophils % (Manual) 10 H (0.7-5.8) % Basophils % (Manual) 0 L (0.1-1.2) Platelet Estimate Marked dec Plt Morphology Comment See note Poikilocytosis 1+ slight Anisocytosis 1+ slight Ovalocytes 1+ slight RBC Morph Comment Not Reportable Sodium 143 (136-145) mEq/L Potassium 2.2 L* (3.5-5.1) mEq/L Chloride 104 (98-107) mEq/L Carbon Dioxide 29 (21-32) mEq/L Anion Gap 12.2 (5-15) BUN 12 (7-18) mg/dL Creatinine 1.2 H (0.55-1.02) mg/dL Est Cr Clr Drug Dosing 31.54 mL/min Estimated GFR (MDRD) 44 (>60) mL/min BUN/Creatinine Ratio 10.0 L (14-18) Glucose 133 H (83-115) mg/dL Calcium 8.3 L (8.5-10.1) mg/dL Total Bilirubin 1.4 H (0.2-1.0) mg/dL AST 18 (15-37) U/L ALT 32 (14-59) U/L Alkaline Phosphatase 80 (46-116) U/L Total Protein 7.3 (6.4-8.2) g/dl Albumin 3.3 L (3.4-5.0) g/dl Globulin 4.0 gm/dL Albumin/Globulin Ratio 0.8 L (1-2) Blood Type B POSITIVE Gel Antibody Screen Negative Crossmatch See Detail Meds: Medications Generic Name Dose Route Start Last Admin Trade Name Freq PRN Reason Stop Dose Admin Sodium Chloride 1,000 mls @ 150 mls/hr 05/16/18 20:15 05/16/18 20:20 Normal Saline IV 150 mls/hr ASDIRECTED MAYRA Administration Sodium Chloride 10 ml 05/16/18 16:37 05/16/18 18:29 Saline Flush FLUSH 10 ml ASDIRECTED PRN Administration Keep Vein Open Discontinued Medications Generic Name Dose Route Start Last Admin Trade Name Freq PRN Reason Stop Dose Admin Magnesium Oxide 400 mg 05/16/18 18:30 05/16/18 19:19 Magnesium Oxide PO 05/16/18 18:31 400 mg ONETIME ONE Administration Potassium Chloride 20 meq 05/16/18 18:03 05/16/18 18:25 Klor-Con M20 PO 05/16/18 18:04 20 meq ONETIME ONE Administration - Re-Assessments/Exams Free Text/Narrative Re-Assessment/Exam: 05/16/18 16:50 Patient presents to the ED for the evaluation of new onset numbness. This is a new symptom for her and her neuro exam did not demonstrate any focal neurological deficits at this time. Likelihood that this is neurological in nature is low. However the Revlimid does increase the risk of blood clots as this is a black box warning for this. I still do not feel as if this is any neurological deficit. I have ordered CBC, CMP for further evaluation. Her blood pressure was a little bit low at 97/78. The only other new medication that she started was the potassium supplement, I am not sure is this might be the cause of some of her issues as well. 05/16/18 18:04 Patient's labs are back and her white blood cell count is low 1.42, platelets are low at 37, and her potassium is low at 2.2 her hemoglobin today is at 8. I did put orders in for 2 units of packed red blood cells and a type and cross. I did also order 20 mEq oral potassium for correction of this. 05/16/18 18:13 Dr. Rouse, the patient's assistant customer service manager was attempted to be called, he is not controller repairer and tester and [facility] will try to get ahold of him to see if he can give me any further suggestions. They stated that they would get a hold of their assistant customer service manager controller repairer and tester Dr. Caldwell. 05/16/18 18:28 Dr. Caldwell suggests that the patient take a magnesium oxide supplement along with her potassium supplementation and to take the potassium 10 mEq BID rather than once daily. 05/16/18 22:04 Patient is resting comfortably and is about alf through her first unit of blood. She states that she normally gets 2 units over 4 hours, I will let the nurse know this and have her adjust the infusion rate as appropriate. Departure - Departure Time of Disposition: 22:59 Disposition: Home, Self-Care 01 Condition: Fair Clinical Impression: Myelodysplastic disease Anemia Qualifiers: Anemia type: other cause Other causes of anemia: other cause, not classified Qualified Code(s): D64.89 - Other specified anemias - Discharge Information *PRESCRIPTION DRUG MONITORING PROGRAM REVIEWED*: No *COPY OF PRESCRIPTION DRUG MONITORING REPORT IN PATIENT ARIELLE: No Instructions: Blood Transfusion, Adult, [id number] Referrals: Rashid Rouse MD [Primary Care Provider] - Forms: ED Department Discharge Additional Instructions: You have been evaluated in the ED today for your arm, leg, face numbness/ tingling. The assistant customer service manager controller repairer and tester at [facility] was consulted and recommends that you reschedule your appointment with Dr. Rouse for an earlier date. He further recommends more frequent evaluations by Dr. Rouse rather than an every 2 month basis. It is recommended that you received blood transfusions on a more frequent outpatient basis as well. Please take magnesium oxide 400 mg in conjunction with your potassium supplement. Please increase your potassium supplemented 10 mEq 2 times daily instead of just once daily. These are all pills that you can obtain at a retail pharmacy location as these are [id number] medications. Please return to the ED if her symptoms change or worsen. - My Orders Last 24 Hours: My Active Orders 05/16/18 16:37 Peripheral IV Care [RC] . DIRECTED Sodium Chloride 0.9% [Saline Flush] 10 ml FLUSH ASDIRECTED PRN Peripheral IV Insertion Adult [OM.PC] Routine 05/16/18 17:00 PACKED CELLS [RED BLOOD CELLS LP] [BBK] Stat TYPE AND SCREEN [BBK] Stat 05/16/18 17:47 Transfuse Red Blood Cells [COMM] Stat 05/16/18 20:15 Sodium Chloride 0.9% [Normal Saline] 1,000 ml IV ASDIRECTED - Assessment/Plan Last 24 Hours: My Active Orders 05/16/18 16:37 Peripheral IV Care [RC] . DIRECTED Sodium Chloride 0.9% [Saline Flush] 10 ml FLUSH ASDIRECTED PRN Peripheral IV Insertion Adult [OM.PC] Routine 05/16/18 17:00 PACKED CELLS [RED BLOOD CELLS LP] [BBK] Stat TYPE AND SCREEN [BBK] Stat 05/16/18 17:47 Transfuse Red Blood Cells [COMM] Stat 05/16/18 20:15 Sodium Chloride 0.9% [Normal Saline] 1,000 ml IV ASDIRECTED
[2018-05-16] MEDS ORDERED: Potassium Chloride 20 MEQ Tab.ER PO ONE (18:03)
[2018-05-16] MEDS ORDERED: Magnesium Oxide 400 MG Tab PO ONE (18:30)
[2018-05-16] MEDS ORDERED: Sodium Chloride 0.9% 1,000 ML IV SCH (20:15)
[2018-05-16 23:17] VITALS: BP 111/64
== END 2018-05-17 01:51 | disposition home or self-care (01) ==
LOC: JD.ED 15:55
DX: C94.6 Myelodysplastic disease, not elsewhere classified (principal); D64.89 Other specified anemias; K21.9 Gastro-esophageal reflux disease without esophagitis; Z79.899 Other long term (current) drug therapy
CPT/HCPCS: 36415; 36430; 80053; 85007; 85027; 86850; 86900; 86901; 86922; 99284; A9270; J7040; P9016

== ENCOUNTER 2018-07-12 14:25 | Emergency (ER) | payer MEDICARE, OTHER ==
[2018-07-12] MEDS ORDERED: Sodium Chloride 0.9% 10 ML Syringe FLUSH PRN (14:37)
--- NOTE | 2018-07-12 15:24 | EDM.PDOC ---
ED HPI GENERAL MEDICAL PROBLEM - General Chief Complaint: Syncope Stated Complaint: HAD AN EPISODE NEEDS BLOOD TRANSFUSION Time Seen by Provider: 07/12/18 14:36 Source of Information: Reports: Patient, RN Notes Reviewed History Limitations: Reports: No Limitations - History of Present Illness INITIAL COMMENTS - FREE TEXT/NARRATIVE: Patient is a 78-year-old female who presents to the ED for the evaluation of a near syncopal episode. The patient is well-known to this ED for having near syncopal or syncopal episodes that result in the need for her to get blood transfusions. She has myelodysplastic syndrome, and receives blood transfusions frequently. She states that she has these episodes roughly once a month now. Her last blood transfusion was in [place], [place] on 06/21/18. She was in the [facility] for a second opinion. She did have a port placed and bone marrow tests done there. The patient states that this morning she was on the toilet and as she was bearing down to have a bowel movement she began to feel dizzy, so she immediately laid on the floor, and felt warm flush and nauseated all at the same time. These are the same symptoms that she has normally when she her hemoglobin is low. Her oncologist is Dr. Rouse. - Related Data Allergies Allergy/AdvReac Type Severity Reaction Status Date / Time Sulfa (Sulfonamide AdvReac Headache Verified 07/12/18 14:35 Antibiotics) Home Meds: Home Meds Latanoprost [Xalatan 0.005% Ophth Soln] 1 drop EYEBOTH BEDTIME 02/08/15 [History ] Pantoprazole Sodium [Protonix] 40 mg PO DAILY 03/02/16 [History] Melatonin 3 mg PO BEDTIME PRN 10/25/16 [History] Loperamide [Imodium] 2 mg PO BID PRN 01/21/18 [History] Diphenoxylate HCl/Atropine [Diphenoxylate-Atrop 2.5-0.025] 1 tab PO ASDIRECTED 02/24/18 [History] Magnesium Oxide [Magnesium] 400 mg PO 07/12/18 [History] Potassium Chloride [Klor-Con M20] 20 meq PO DAILY #30 tab.er 07/12/18 [Rx] Past Medical History HEENT History: Reports: Cataract, Impaired Vision Cardiovascular History: Reports: None Respiratory History: Reports: Other (See Below) Other Respiratory History: cough Gastrointestinal History: Reports: Chronic Diarrhea, GERD Other Gastrointestinal History: ulcerative colitis, esophagitis, 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 , diverticulitis Genitourinary History: Reports: UTI, Recurrent 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: Musculoskeletal History: Reports: Arthritis Endocrine/Metabolic History: Reports: None Hematologic History: Reports: Anemia, Other (See Below) Other Hematologic History: myelodysplastic syndrome (MDS) - Infectious Disease History Infectious Disease History: Reports: Measles - Past Surgical History Respiratory Surgical History: Reports: None GI Surgical History: Reports: Cholecystectomy, Colon, Colonoscopy Other GI Surgeries/Procedures: hemorrhoidectomy Female Surgical History: Reports: Hysterectomy Social & Family History - Family History Family Medical History: Noncontributory HEENT: Reports: Impaired Vision Oncologic: Reports: Colon - Tobacco Use Smoking Status *Q: Never Smoker - Caffeine Use Caffeine Use: Reports: Coffee, Soda - Recreational Drug Use Recreational Drug Use: No - Living Situation & Occupation Living situation: Reports: Occupation: Retired ED ROS GENERAL - Review of Systems Review Of Systems: See Below Constitutional: Reports: Weakness HEENT: Reports: No Symptoms Respiratory: Reports: No Symptoms Cardiovascular: Reports: No Symptoms Endocrine: Reports: No Symptoms GI/Abdominal: Reports: No Symptoms : Reports: No Symptoms Musculoskeletal: Reports: No Symptoms Skin: Reports: No Symptoms Neurological: Reports: Dizziness, Syncope (near syncope) Psychiatric: Reports: No Symptoms Hematologic/Lymphatic: Reports: Anemia (myelodysplastic syndrome) - Physical Exam Exam: See Below Exam Limited By: No Limitations General Appearance: Alert, WD/WN, No Apparent Distress Eye Exam: Bilateral Eye: EOMI, Normal Inspection, PERRL Ears: Normal External Exam Nose: Normal Inspection Throat/Mouth: Normal Inspection, Normal Lips, Normal Teeth, Normal Gums, Normal Oropharynx, Normal Voice, No Airway Compromise Head Exam: Atraumatic, Normocephalic Neck: Normal Inspection Respiratory/Chest: No Respiratory Distress, Lungs Clear, Normal Breath Sounds, No Accessory Muscle Use, Chest Non-Tender Cardiovascular: Normal Peripheral Pulses, Regular Rate, Rhythm, No Murmur Neuro Exam (Abbreviated): Alert, Oriented, Normal Cognition, Normal Gait, No Motor/Sensory Deficits Extremities: Normal Inspection, Slow Capillary Refill, Pallor (generalized) Psychiatric: Normal Affect, Normal Mood Skin Exam: Warm, Dry, Intact, No Rash, Pallor (generalized) Course - Vital Signs Last Recorded V/S: Last Vital Signs Temp 98.0 F 07/12/18 19:53 Pulse 80 07/12/18 19:53 Resp 16 07/12/18 19:53 BP 115/58 L 07/12/18 19:53 Pulse Ox 99 07/12/18 19:53 - Orders/Labs/Meds Orders: Active Orders 24 hr Category Date Time Status Peripheral IV Care [RC] . DIRECTED Care 07/12/18 14:37 Inactive Sodium Chloride 0.9% [Normal Saline] 250 ml Med 07/12/18 16:39 Active IV NOW Sodium Chloride 0.9% [Normal Saline] 250 ml Med 07/12/18 16:39 Active IV NOW Central Venous Line Insertion [OM.PC] Routine Oth 07/12/18 14:45 Ordered Transfuse PRBC [Transfuse Red Blood Cells] [COMM] Stat Oth 07/12/18 15:36 Ordered Medication Orders Sodium Chloride (Normal Saline) 250 mls @ 25 mls/hr IV NOW STA Stop: 07/13/18 02:38 Sodium Chloride (Normal Saline) 250 mls @ 25 mls/hr IV NOW STA Stop: 07/13/18 02:38 Labs: Laboratory Tests 07/12/18 07/12/18 07/12/18 Range/Units 14:50 14:50 14:50 WBC 2.03 L* (3.98-10.04) K/mm3 RBC 2.25 L (3.98-5.22) M/mm3 Hgb 7.0 L* (11.2-15.7) gm/L Hct 21.3 L (34.1-44.9) % MCV 94.7 (79.4-94.8) fl MCH 31.1 (25.6-32.2) pg MCHC 32.9 (32.2-35.5) g/dl RDW Std Deviation 54.8 H (36.4-46.3) fL Plt Count 42 L (182-369) K/mm3 MPV 11.5 (9.4-12.3) fl Neutrophils % (Manual) 50 (40-60) % Band Neutrophils % 0 (0-10) % Lymphocytes % (Manual) 38 (20-40) % Atypical Lymphs % 0 % Monocytes % (Manual) 10 (2-10) % Eosinophils % (Manual) 2 (0.7-5.8) % Basophils % (Manual) 0 L (0.1-1.2) Platelet Estimate Decreased Plt Morphology Comment Normal Poikilocytosis 1+ slight Anisocytosis 1+ slight Microcytosis 3+ marked Macrocytosis RBC Morph Comment Not Reportable Sodium 139 (136-145) mEq/L Potassium 3.1 L (3.5-5.1) mEq/L Chloride 101 (98-107) mEq/L Carbon Dioxide 27 (21-32) mEq/L Anion Gap 14.1 (5-15) BUN 14 (7-18) mg/dL Creatinine 1.2 H (0.55-1.02) mg/dL Est Cr Clr Drug Dosing 31.05 mL/min Estimated GFR (MDRD) 44 (>60) mL/min BUN/Creatinine Ratio 11.7 L (14-18) Glucose 122 H (83-115) mg/dL Calcium 8.3 L (8.5-10.1) mg/dL Total Bilirubin 1.3 H (0.2-1.0) mg/dL AST 21 (15-37) U/L ALT 42 (14-59) U/L Alkaline Phosphatase 81 (46-116) U/L Total Protein 7.2 (6.4-8.2) g/dl Albumin 3.3 L (3.4-5.0) g/dl Globulin 3.9 gm/dL Albumin/Globulin Ratio 0.9 L (1-2) Blood Type B POSITIVE Gel Antibody Screen Negative Crossmatch See Detail Meds: Medications Generic Name Dose Route Start Last Admin Trade Name Freq PRN Reason Stop Dose Admin Sodium Chloride 250 mls @ 25 mls/hr 07/12/18 16:39 Normal Saline IV 07/13/18 02:38 NOW STA Sodium Chloride 250 mls @ 25 mls/hr 07/12/18 16:39 Normal Saline IV 07/13/18 02:38 NOW STA Discontinued Medications Generic Name Dose Route Start Last Admin Trade Name Freq PRN Reason Stop Dose Admin Sodium Chloride 10 ml 07/12/18 14:37 07/12/18 15:10 Saline Flush FLUSH 10 ml ASDIRECTED PRN Administration Keep Vein Open - Re-Assessments/Exams Free Text/Narrative Re-Assessment/Exam: 07/12/18 15:25 Patient presents to the ED for near syncopal episode. I have ordered a CBC, CMP , type and screen in the event that the patient will need blood, however when she has syncopal episodes like this she does usually require blood transfusions. She will likely receive blood at this ED visit. 07/12/18 15:37 Patient's lab results are done, and demonstrated a hemoglobin of 7.0. I did order 2 units to be transfused, the patient's blood type is B+ with no antibodies. The patient's potassium level was 3.1 today, she is on potassium supplementation, I will not worry about this at this time, as she will be receiving blood. She will be directed to supplement her potassium at home. 07/12/18 20:07 Patient has been reassessed at bedside multiple times throughout her blood transfusions, she is on her second transfusion at this time. The patient is denying needs for anything, I have directed her to call the nursing staff if she should need anything further. Departure - Departure Time of Disposition: 21:25 Disposition: Home, Self-Care 01 Condition: Fair Clinical Impression: Myelodysplasia (myelodysplastic syndrome), Near syncope Anemia Qualifiers: Anemia type: other cause Other causes of anemia: other cause, not classified Qualified Code(s): D64.89 - Other specified anemias - Discharge Information *PRESCRIPTION DRUG MONITORING PROGRAM REVIEWED*: No *COPY OF PRESCRIPTION DRUG MONITORING REPORT IN PATIENT ARIELLE: No Prescriptions: Potassium Chloride [Klor-Con M20] 20 meq PO DAILY #30 tab.er Instructions: Blood Transfusion, Adult, [id number], Near-Syncope, Easy-to- Read, Blood Transfusion, Adult, Care After, [id number] Referrals: Rashid Rouse MD [Primary Care Provider] - Forms: ED Department Discharge Additional Instructions: You have been evaluated in the ED today for your near syncopal episode. Your hemoglobin was found to be 7.0 at initial evaluation, you have received 2 units of blood for correction of this. You have been prescribed potassium supplementation to continue potassium supplementation at home. This has been electronically prescribed to the [facility] located on [address]. Please follow up with your oncologist, Dr. Rouse at your next appointment. Please return to the ED if your symptoms should change or worsen. - My Orders Last 24 Hours: My Active Orders 07/12/18 14:37 Peripheral IV Care [RC] . DIRECTED 07/12/18 14:45 Central Venous Line Insertion [OM.PC] Routine 07/12/18 15:36 Transfuse PRBC [Transfuse Red Blood Cells] [COMM] Stat 07/12/18 16:39 Sodium Chloride 0.9% [Normal Saline] 250 ml IV NOW Sodium Chloride 0.9% [Normal Saline] 250 ml IV NOW - Assessment/Plan Last 24 Hours: My Active Orders 07/12/18 14:37 Peripheral IV Care [RC] . DIRECTED 07/12/18 14:45 Central Venous Line Insertion [OM.PC] Routine 07/12/18 15:36 Transfuse PRBC [Transfuse Red Blood Cells] [COMM] Stat 07/12/18 16:39 Sodium Chloride 0.9% [Normal Saline] 250 ml IV NOW Sodium Chloride 0.9% [Normal Saline] 250 ml IV NOW
[2018-07-12] MEDS ORDERED: Sodium Chloride 0.9% 250 ML IV STA ×2 (16:39)
[2018-07-12 21:49] VITALS: BP 113/75
== END 2018-07-12 21:45 | disposition home or self-care (01) ==
LOC: JD.ED 14:25
DX: D46.9 Myelodysplastic syndrome, unspecified (principal); D64.89 Other specified anemias; Z79.899 Other long term (current) drug therapy; K21.9 Gastro-esophageal reflux disease without esophagitis
CPT/HCPCS: 36415; 36430; 80053; 85007; 85027; 86850; 86900; 86901; 86922; 99284; P9016

== ENCOUNTER 2020-12-15 10:12 | Emergency (ER) | payer MEDICARE, OTHER ==
[2020-12-15] MEDS ORDERED: Acetaminophen 325 MG Tab PO ONE (10:37)
--- NOTE | 2020-12-15 13:42 | CR ---
Pelvis and right hip: AP view of the pelvis was obtained as well as AP and frog-leg lateral views of the right hip. Comparison: No previous pelvis or hip study is available. Bony structures are osteopenic. Disc space narrowing is seen within the visualized lower lumbar spine with osteophytes. Sacroiliac joints are normal. Mild joint space narrowing is seen within the right hip. No acute fracture or other abnormality is appreciated. Surgical anastomotic sutures are seen within the right abdomen. Impression: 1. Osteopenia. 2. Degenerative change within the lumbar spine as well as mild joint space narrowing within the right hip. 3. Previous surgery within the right abdomen with surgical anastomotic sutures. Diagnostic code #3
--- NOTE | 2020-12-15 13:43 | CR ---
Sacrum/coccyx: 3 views of the sacrum/coccyx were obtained. Comparison: No prior sacrum/coccyx study is available. Degenerative change is seen within the lower lumbar spine. Joint spaces within the sacrum are maintained. Bony structures are osteopenic. No discrete fracture or other abnormality is appreciated. Sacral foramina are patent. Impression: 1. Degenerative change within the lower lumbar spine. 2. Osteopenia. 3. Nothing acute is appreciated on sacrum study. Diagnostic code #2
[2020-12-15] MEDS ORDERED: Sodium Chloride 0.9% 250 ML IV SCH (15:45)
--- NOTE | 2020-12-15 16:19 | EDM.PDOC ---
ED HPI GENERAL MEDICAL PROBLEM - General Chief Complaint: Lower Extremity Injury/Pain Stated Complaint: [facility] Time Seen by Provider: 12/15/20 10:20 Source of Information: Reports: Patient History Limitations: Reports: No Limitations - History of Present Illness INITIAL COMMENTS - FREE TEXT/NARRATIVE: Patient is 80-year-old female presenting to the emergency room with a chief complaint of syncopal episode. Patient reports getting up this morning and preparing something to drink next thing she knows she was on the floor. Patient reports pain in her buttocks area. Denies any pain in her hips, groin, back, chest. Patient was ambulatory after the fall. She debated coming to the emergency room for several hours before coming in. She states she has had sync opal episodes in the past. In reviewing her chart, this has been associated with significant anemia. Patient does have a history of myelodysplastic syndrome and is currently under the care of oncology. At present time, her pain is minimal and she feels well. No recent vomiting or diarrhea. Buttock Pain Score (Numeric/FACES): 10 - Related Data Allergies Allergy/AdvReac Type Severity Reaction Status Date / Time Sulfa (Sulfonamide AdvReac Severe Headache Verified 12/15/20 10:21 Antibiotics) Home Meds: Home Meds Latanoprost [Xalatan 0.005% Ophth Soln] 1 drop EYEBOTH BEDTIME 02/08/15 [History] Loperamide [Imodium] 2 mg PO BID PRN 01/21/18 [History] Magnesium Oxide [Magnesium] 400 mg PO DAILY 07/12/18 [History] Past Medical History HEENT History: Reports: Cataract, Impaired Vision Cardiovascular History: Reports: None Respiratory History: Reports: Other (See Below) Other Respiratory History: cough Gastrointestinal History: Reports: Chronic Diarrhea, GERD Other Gastrointestinal History: ulcerative colitis, esophagitis, 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, diverticulitis Genitourinary History: Reports: UTI, Recurrent [employer] History: Reports: Musculoskeletal History: Reports: Arthritis Endocrine/Metabolic History: Reports: None Hematologic History: Reports: Anemia, Other (See Below) Other Hematologic History: myelodysplastic syndrome (MDS) - Infectious Disease History Infectious Disease History: Reports: Measles - Past Surgical History GI Surgical History: Reports: Cholecystectomy, Colon, Colonoscopy Other GI Surgeries/Procedures: hemorrhoidectomy Female Surgical History: Reports: Hysterectomy Social & Family History - Family History Family Medical History: No Pertinent Family History HEENT: Reports: Impaired Vision Oncologic: Reports: Colon - Tobacco Use Tobacco Use Status *Q: Never Tobacco User - Caffeine Use Caffeine Use: Reports: None - Recreational Drug Use Recreational Drug Use: No - Living Situation & Occupation Living situation: Reports: Occupation: Retired Review of Systems - Review of Systems Review Of Systems: See Below Constitutional: Denies: Chills, Fever Eyes: Denies: Blurred Vision Ears: Denies: Dizziness Nose: Denies: Epistaxis Mouth/Throat: Denies: Bleeding, Painful Swallowing Respiratory: Denies: Shortness of Breath Cardiovascular: Reports: Syncope. Denies: Chest Pain, Palpitations GI/Abdominal: Denies: Abdominal Pain, Diarrhea Musculoskeletal: Denies: Neck Pain Neurological: Denies: Confusion, Dizziness, Headache, Numbness ED EXAM, GENERAL - Physical Exam Exam: See Below Free Text/Narrative:: I have reviewed the triage vital signs Const: Well nourished, well developed, appears stated age. Pleasant in conversation and nontoxic in appearance. Eyes: Pupils Equal and reactive to light bilaterally, no conjunctival injection HENT: No signs of trauma or swelling, Neck supple without meningismus CV: Regular Rate Rhythm, Warm, well-perfused extremities RESP: Unlabored respiratory effort GI: soft, non-tender, non-distended, no masses MSK: No gross deformities appreciated Skin: Warm, dry. No rashes Neuro: Alert, inventory control/shipping receiving II-XII grossly intact. Sensation and motor function of extremities grossly intact. Psych: Appropriate mood and affect. #1 Interpretation EKG Date: 12/15/20 Time: 11:02 Rhythm: NSR Rate (Beats/Min): 66 [place]: LAD-Left [place] Deviation P-Wave: Present QRS: Normal ST-T: Depressed QT: Prolonged (QTc is 503 calculated by myself) Comparison: No Change EKG Interpretation Comments: abnormal Course - Vital Signs Last Recorded V/S: Last Vital Signs Temp 35.9 C L 12/15/20 16:32 Pulse 62 12/15/20 16:47 Resp 16 12/15/20 16:47 BP 116/65 12/15/20 16:47 Pulse Ox 96 12/15/20 16:10 - Orders/Labs/Meds Orders: Active Orders 24 hr Category Date Time Status Blood Glucose Check, Bedside [RC] ONETIME Care 12/15/20 10:36 Active RED BLOOD CELLS LP [BBK] Stat Lab 12/15/20 12:12 Results TYPE AND SCREEN [BBK] Stat Lab 12/15/20 12:12 Results Sodium Chloride 0.9% [Normal Saline] 250 ml Med 12/15/20 15:45 Active IV ASDIRECTED Transfuse PRBC [Transfuse Red Blood Cells] [COMM] Stat Oth 12/15/20 12:28 Ordered Medication Orders Sodium Chloride (Normal Saline) 250 mls @ 999 mls/hr IV ASDIRECTED MAYRA Labs: Laboratory Tests 12/15/20 12/15/20 12/15/20 Range/Units 12:01 12:12 12:12 WBC 1.60 L* (3.98-10.04) K/mm3 RBC 2.27 L (3.98-5.22) M/mm3 Hgb 6.9 L* (11.2-15.7) gm/dl Hct 21.5 L (34.1-44.9) % MCV 94.7 (79.4-94.8) fl MCH 30.4 (25.6-32.2) pg MCHC 32.1 L (32.2-35.5) g/dl RDW Std Deviation 62.7 H (36.4-46.3) fL Plt Count 27 L (182-369) K/mm3 MPV 10.1 (9.4-12.3) fl Neut % (Auto) 72.5 H (34.0-71.1) % Lymph % (Auto) 19.4 (19.3-51.7) % [place] % (Auto) 6.9 (4.7-12.5) % Eos % (Auto) 0.6 L (0.7-5.8) Baso % (Auto) 0.6 (0.1-1.2) % Neut # (Auto) 1.16 L (1.56-6.13) K/mm3 Lymph # (Auto) 0.31 L (1.18-3.74) K/mm3 [place] # (Auto) 0.11 L (0.24-0.36) K/mm3 Eos # (Auto) 0.01 L (0.04-0.36) K/mm3 Baso # (Auto) 0.01 (0.01-0.08) K/mm3 Manual Slide Review Abnormal smear Sodium 138 (136-145) mEq/L Potassium 3.1 L (3.5-5.1) mEq/L Chloride 102 (98-107) mEq/L Carbon Dioxide 28 (21-32) mEq/L Anion Gap 11.1 (5-15) BUN 13 (7-18) mg/dL Creatinine 1.0 (0.55-1.02) mg/dL Est Cr Clr Drug Dosing 36.08 mL/min Estimated GFR (MDRD) 53 (>60) mL/min BUN/Creatinine Ratio 13.0 L (14-18) Glucose 115 H (70-99) mg/dL POC Glucose 102 H (70-99) mg/dL Calcium 8.5 (8.5-10.1) mg/dL Magnesium 1.9 (1.8-2.4) mg/dL Total Bilirubin 1.7 H (0.2-1.0) mg/dL AST 46 H (15-37) U/L ALT 97 H (14-59) U/L Alkaline Phosphatase 98 (46-116) U/L Total Protein 6.8 (6.4-8.2) g/dl Albumin 3.4 (3.4-5.0) g/dl Globulin 3.4 gm/dL Albumin/Globulin Ratio 1.0 (1-2) Blood Type Gel Antibody Screen Crossmatch 12/15/20 Range/Units 12:12 WBC (3.98-10.04) K/mm3 RBC (3.98-5.22) M/mm3 Hgb (11.2-15.7) gm/dl Hct (34.1-44.9) % MCV (79.4-94.8) fl MCH (25.6-32.2) pg MCHC (32.2-35.5) g/dl RDW Std Deviation (36.4-46.3) fL Plt Count (182-369) K/mm3 MPV (9.4-12.3) fl Neut % (Auto) (34.0-71.1) % Lymph % (Auto) (19.3-51.7) % [place] % (Auto) (4.7-12.5) % Eos % (Auto) (0.7-5.8) Baso % (Auto) (0.1-1.2) % Neut # (Auto) (1.56-6.13) K/mm3 Lymph # (Auto) (1.18-3.74) K/mm3 [place] # (Auto) (0.24-0.36) K/mm3 Eos # (Auto) (0.04-0.36) K/mm3 Baso # (Auto) (0.01-0.08) K/mm3 Manual Slide Review Sodium (136-145) mEq/L Potassium (3.5-5.1) mEq/L Chloride (98-107) mEq/L Carbon Dioxide (21-32) mEq/L Anion Gap (5-15) BUN (7-18) mg/dL Creatinine (0.55-1.02) mg/dL Est Cr Clr Drug Dosing mL/min Estimated GFR (MDRD) (>60) mL/min BUN/Creatinine Ratio (14-18) Glucose (70-99) mg/dL POC Glucose (70-99) mg/dL Calcium (8.5-10.1) mg/dL Magnesium (1.8-2.4) mg/dL Total Bilirubin (0.2-1.0) mg/dL AST (15-37) U/L ALT (14-59) U/L Alkaline Phosphatase (46-116) U/L Total Protein (6.4-8.2) g/dl Albumin (3.4-5.0) g/dl Globulin gm/dL Albumin/Globulin Ratio (1-2) Blood Type B POSITIVE Gel Antibody Screen Negative Crossmatch See Detail Meds: Medications Generic Name Dose Route Start Last Admin Trade Name Freq PRN Reason Stop Dose Admin Sodium Chloride 250 mls @ 999 mls/hr 12/15/20 15:45 Normal Saline IV ASDIRECTED MAYRA Discontinued Medications Generic Name Dose Route Start Last Admin Trade Name Freq PRN Reason Stop Dose Admin Acetaminophen 650 mg 12/15/20 10:37 12/15/20 11:08 Acetaminophen 325 Mg Tab PO 12/15/20 10:38 650 mg NOW ONE Administration Departure - Departure Time of Disposition: 18:04 Disposition: Home, Self-Care 01 Clinical Impression: Anemia Qualifiers: Anemia type: other cause Other causes of anemia: other cause, not classified Qualified Code(s): D64.89 - Other specified anemias Syncope Qualifiers: Syncope type: unspecified Qualified Code(s): R55 - Syncope and collapse - Discharge Information *PRESCRIPTION DRUG MONITORING PROGRAM REVIEWED*: Not Applicable *COPY OF PRESCRIPTION DRUG MONITORING REPORT IN PATIENT ARIELLE: Not Applicable Instructions: Syncope Referrals: Fidencio Evans [employer]GER [Primary Care Provider] - Forms: ED Department Discharge Additional Instructions: Turn to the emergency room if you develop lightheadedness, dizziness or have any other emergent concerns. Otherwise, plan on following up with your primary physician on Saturday as previously discussed. Sepsis Event Note (ED) - Evaluation Sepsis Screening Result: No Definite Risk - Focused Exam Vital Signs: Vital Signs Temp Temp Pulse Resp BP Pulse Ox 12/15/20 16:47 62 16 116/65 12/15/20 16:32 35.9 C L 77 16 107/60 12/15/20 16:10 36.0 C L 36.0 C L 66 16 105/62 96 12/15/20 14:04 75 16 118/68 100 12/15/20 10:18 36.1 C 67 16 127/49 L 100 - My Orders Last 24 Hours: My Active Orders 12/15/20 10:36 Blood Glucose Check, Bedside [RC] ONETIME 12/15/20 12:12 RED BLOOD CELLS LP [BBK] Stat TYPE AND SCREEN [BBK] Stat 12/15/20 12:28 Transfuse PRBC [Transfuse Red Blood Cells] [COMM] Stat 12/15/20 15:45 Sodium Chloride 0.9% [Normal Saline] 250 ml IV ASDIRECTED - Assessment/Plan Last 24 Hours: My Active Orders 12/15/20 10:36 Blood Glucose Check, Bedside [RC] ONETIME 12/15/20 12:12 RED BLOOD CELLS LP [BBK] Stat TYPE AND SCREEN [BBK] Stat 12/15/20 12:28 Transfuse PRBC [Transfuse Red Blood Cells] [COMM] Stat 12/15/20 15:45 Sodium Chloride 0.9% [Normal Saline] 250 ml IV ASDIRECTED Assessment:: Patient is 80-year-old female presenting to emergency with chief complaint of syncopal episode. Patient had unremarkable ER course. Hemodynamically stable while in the emergency room. Not demonstrating any signs of respiratory distress. Examination of extremities is unremarkable. X-rays were negative for any acute fractures of the pelvis, hip or sacrum. Laboratory studies reviewed demonstrate hemoglobin of 6.9. This is slightly lower than patient's baseline and patient was indicated for transfusion of 1 unit packed red blood cells. Patient consented to this. This is secondary to her underlying disease process as opposed to acute blood loss. EKG reviewed demonstrates prolonged QT C at 503. Otherwise, EKG appears comparable to baseline. Electrolytes demonstrate slight hypokalemia at 3.1. Patient instructed to start on oral potassium replenishment. After transfusion was complete, patient will be discharged from the emergency room. Syncope likely secondary to anemia. Patient does have follow-up appointment on Saturday. Return precautions discussed as usual. Patient agrees with plan of care.
[2020-12-15 18:25] VITALS: BP 112/58; PULSE 66
== END 2020-12-15 19:00 | disposition home or self-care (01) ==
LOC: JD.ED 10:12
DX: R55 Syncope and collapse (principal); D64.89 Other specified anemias; R94.31 Abnormal electrocardiogram [ECG] [EKG]; Z88.2 Allergy status to sulfonamides
CPT/HCPCS: 36415; 36430; 72220; 73502; 80053; 82947; 83735; 85025; 86850; 86900; 86901; 86922; 93005; 99284; A9270; J1642; P9016

== ENCOUNTER 2021-02-10 09:41 | Emergency (ER) | payer MEDICARE, OTHER ==
[2021-02-10] MEDS ORDERED: Sodium Chloride 0.9% 10 ML Syringe FLUSH PRN ×2 (09:59→12:32)
--- NOTE | 2021-02-10 10:21 | EDM.PDOC ---
ED HPI GENERAL MEDICAL PROBLEM - General Chief Complaint: Syncope Stated Complaint: [facility] Time Seen by Provider: 02/10/21 10:06 - History of Present Illness INITIAL COMMENTS - FREE TEXT/NARRATIVE: 80-year-old female presents the emergency room weak and tired and had a syncopal-like event. The patient woke this morning somewhat diaphoretic. He then got up walk to the bathroom and had a BM and passed out. Patient has myelodysplastic syndrome and had a platelet transfusion yesterday patient states that she is getting her transfusions more frequently. Patient denies any fevers however was sweaty this morning when she woke up. Patient has some vague abdominal pain otherwise complains of no pain she does not feel short of breath. Patient was found to have a UTI on a urine that was obtained yesterday her regular healthcare provider did phone in an antibiotic were not sure which antibiotic she was started on. - Related Data Allergies Allergy/AdvReac Type Severity Reaction Status Date / Time Sulfa (Sulfonamide AdvReac Mild Headache Verified 01/01/21 07:58 Antibiotics) Home Meds: Home Meds Latanoprost [Xalatan 0.005% Ophth Soln] 1 drop EYEBOTH BEDTIME 02/08/15 [History] Magnesium Oxide [Magnesium] 400 mg PO DAILY 07/12/18 [History] Potassium Chloride 20 meq PO DAILY #10 packet 12/15/20 [Rx] Epoetin Flaco [Procrit] 80,000 units SUBCUT WEEKLY 02/10/21 [History] Lidocaine/Prilocaine [EMLA Crm] 1 applic TOP ONCALL PRN 02/10/21 [History] Pantoprazole [ProTONIX] 40 mg PO DAILY PRN 02/10/21 [History] Potassium Chloride [Klor-Con M20] 20 meq PO BID #4 tab.er.prt 02/10/21 [Rx] nitrofurantoin macrocrystaL [Nitrofurantoin] 100 mg PO BID 02/10/21 [History] traMADol [Ultram] 50 mg PO Q6H PRN 02/10/21 [History] Past Medical History HEENT History: Reports: Cataract, Impaired Vision Cardiovascular History: Reports: None Respiratory History: Reports: Other (See Below) Other Respiratory History: cough Gastrointestinal History: Reports: Chronic Diarrhea, GERD Other Gastrointestinal History: ulcerative colitis, esophagitis, 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, diverticulitis Genitourinary History: Reports: UTI, Recurrent 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 History: Reports: Musculoskeletal History: Reports: Arthritis Endocrine/Metabolic History: Reports: None, Hypokalemia, Hypomagnesemia Hematologic History: Reports: Anemia, Blood Transfusion(s), Other (See Below) Other Hematologic History: myelodysplastic syndrome (MDS) - Infectious Disease History Infectious Disease History: Reports: Measles - Past Surgical History GI Surgical History: Reports: Cholecystectomy, Colon, Colonoscopy Other GI Surgeries/Procedures: hemorrhoidectomy Female Surgical History: Reports: Hysterectomy Musculoskeletal Surgical History: Reports: None Social & Family History - Family History Family Medical History: No Pertinent Family History HEENT: Reports: Impaired Vision Oncologic: Reports: Colon - Tobacco Use Tobacco Use Status *Q: Never Tobacco User - Caffeine Use Caffeine Use: Reports: None - Recreational Drug Use Recreational Drug Use: No - Living Situation & Occupation Living situation: Reports: Occupation: Retired ED ROS GENERAL - Review of Systems Review Of Systems: See Below Constitutional: Reports: Diaphoresis. Denies: Fever, Chills HEENT: Reports: No Symptoms Respiratory: Reports: No Symptoms Cardiovascular: Reports: No Symptoms GI/Abdominal: Denies: Diarrhea, Nausea, Vomiting : Reports: Dysuria, Frequency Musculoskeletal: Reports: No Symptoms Skin: Reports: No Symptoms Neurological: Reports: Other ED EXAM, GENERAL - Physical Exam Exam: See Below Exam Limited By: No Limitations General Appearance: Alert, No Apparent Distress Ears: Normal External Exam, Normal Canal, Hearing Grossly Normal, Normal TMs Nose: Normal Inspection, Normal Mucosa, No Blood Throat/Mouth: Normal Inspection, Normal Lips, Normal Gums, Normal Oropharynx, Other ([place]id[place] mucous membranes) Head: Atraumatic, Normocephalic Neck: Normal Inspection, Supple, Non-Tender, Full Range of Motion. No: Lymphadenopathy (L), Lymphadenopathy (R) Respiratory/Chest: No Respiratory Distress, Lungs Clear, Normal Breath Sounds Cardiovascular: Regular Rate, Rhythm, No Edema, No Murmur GI/Abdominal: Normal Bowel Sounds, Soft, Tender (Vague periumbilical discomfort does not seem to be too severe with palpation). No: Distended, Guarding, Rigid, Rebound Back Exam: Normal Inspection. No: CVA Tenderness (L), CVA Tenderness (R) Extremities: Normal Inspection, No Pedal Edema Neurological: Alert, Oriented, Normal Cognition #1 Interpretation EKG Date: 02/10/21 Rhythm: NSR Rate (Beats/Min): 78 [place]: LAD-Left [place] Deviation P-Wave: Present QRS: Other (Low voltage in the precordial leads to a lesser degree in the limb leads) ST-T: Normal QT: Prolonged Comparison: No Change (No significant change from 12/15/2020) EKG Interpretation Comments: Abnormal Course - Vital Signs Last Recorded V/S: Last Vital Signs Temp 37.2 C 02/10/21 22:56 Pulse 68 02/11/21 00:28 Resp 18 02/11/21 00:28 BP 120/75 02/11/21 00:28 Pulse Ox 95 02/11/21 00:28 - Orders/Labs/Meds Orders: Active Orders 24 hr Category Date Time Status BLOOD CULTURE [MREF] Stat Lab 02/10/21 10:15 Received BLOOD CULTURE [MREF] Stat Lab 02/10/21 10:28 Received Blood Culture x2 Reflex Set [OM.PC] Stat [facility] 02/10/21 10:00 Ordered Blood Culture x2 Reflex Set [OM.PC] Stat [facility] 02/10/21 10:44 Ordered Peripheral IV Insertion Adult [OM.PC] Stat [facility] 02/10/21 10:00 Ordered Transfuse PRBC [Transfuse Red Blood Cells] [COMM] Stat [facility] 02/10/21 12:00 Ordered Transfuse Platelets [COMM] Stat [facility] 02/10/21 12:00 Ordered Labs: Laboratory Tests 02/10/21 02/10/21 02/10/21 Range/Units 10:10 10:15 10:15 WBC 0.47 L* (3.98-10.04) K/mm3 RBC 2.38 L (3.98-5.22) M/mm3 Hgb 7.1 L* (11.2-15.7) gm/dl Hct 21.3 L (34.1-44.9) % MCV 89.5 D (79.4-94.8) fl MCH 29.8 (25.6-32.2) pg MCHC 33.3 (32.2-35.5) g/dl RDW Std Deviation 43.3 (36.4-46.3) fL Plt Count 7 L* (182-369) K/mm3 MPV 12.5 H (9.4-12.3) fl Neut % (Auto) 46.8 (34.0-71.1) % Lymph % (Auto) 40.4 (19.3-51.7) % Preston % (Auto) 12.8 H (4.7-12.5) % Eos % (Auto) 0 L (0.7-5.8) Baso % (Auto) 0.0 L (0.1-1.2) % Neut # (Auto) 0.22 L (1.56-6.13) K/mm3 Lymph # (Auto) 0.19 L (1.18-3.74) K/mm3 Preston # (Auto) 0.06 L (0.24-0.36) K/mm3 Eos # (Auto) 0.00 L (0.04-0.36) K/mm3 Baso # (Auto) 0.00 L (0.01-0.08) K/mm3 Manual Slide Review Abnormal smear D-Dimer, Quantitative (0.19-0.50) mg/L Sodium (136-145) mEq/L Potassium (3.5-5.1) mEq/L Chloride (98-107) mEq/L Carbon Dioxide (21-32) mEq/L Anion Gap (5-15) BUN (7-18) mg/dL Creatinine (0.55-1.02) mg/dL Est Cr Clr Drug Dosing mL/min Estimated GFR (MDRD) (>60) mL/min BUN/Creatinine Ratio (14-18) Glucose (70-99) mg/dL Lactic Acid (0.4-2.0) mmol/L Calcium (8.5-10.1) mg/dL Magnesium (1.8-2.4) mg/dL Total Bilirubin (0.2-1.0) mg/dL AST (15-37) U/L ALT (14-59) U/L Alkaline Phosphatase (46-116) U/L Troponin I < 0.017 (0.00-0.056) ng/mL C-Reactive Protein (<1.0) mg/dL NT-Pro-B Natriuret Pep (0-450) pg/mL Total Protein (6.4-8.2) g/dl Albumin (3.4-5.0) g/dl Globulin gm/dL Albumin/Globulin Ratio (1-2) TSH 3rd Generation (0.358-3.74) uIU/mL Urine Color (Yellow) Urine Appearance (Clear) Urine pH (5.0-8.0) Ur Specific [place] (1.005-1.030) Urine Protein (Negative) Urine Glucose (UA) (Negative) Urine Ketones (Negative) Urine Occult Blood (Negative) Urine Nitrite (Negative) Urine Bilirubin (Negative) Urine Urobilinogen (0.2-1.0) Ur Leukocyte Esterase (Negative) Urine RBC (0-5) /hpf Urine WBC (0-5) /hpf Ur Squamous Epith Cells (0-5) /hpf Urine Bacteria (FEW) /hpf Urine Mucus (FEW) /hpf Influenza Type A RNA Negative (NEGATIVE) Influenza Type B RNA Negative (NEGATIVE) SARS-CoV-2 RNA (REGULO) Negative (NEGATIVE) Blood Type Gel Antibody Screen Crossmatch 02/10/21 02/10/21 02/10/21 Range/Units 10:15 10:15 10:15 WBC (3.98-10.04) K/mm3 RBC (3.98-5.22) M/mm3 Hgb (11.2-15.7) gm/dl Hct (34.1-44.9) % MCV (79.4-94.8) fl MCH (25.6-32.2) pg MCHC (32.2-35.5) g/dl RDW Std Deviation (36.4-46.3) fL Plt Count (182-369) K/mm3 MPV (9.4-12.3) fl Neut % (Auto) (34.0-71.1) % Lymph % (Auto) (19.3-51.7) % Preston % (Auto) (4.7-12.5) % Eos % (Auto) (0.7-5.8) Baso % (Auto) (0.1-1.2) % Neut # (Auto) (1.56-6.13) K/mm3 Lymph # (Auto) (1.18-3.74) K/mm3 Preston # (Auto) (0.24-0.36) K/mm3 Eos # (Auto) (0.04-0.36) K/mm3 Baso # (Auto) (0.01-0.08) K/mm3 Manual Slide Review D-Dimer, Quantitative 1.06 H (0.19-0.50) mg/L Sodium 140 (136-145) mEq/L Potassium 2.8 L (3.5-5.1) mEq/L Chloride 101 (98-107) mEq/L Carbon Dioxide 31 (21-32) mEq/L Anion Gap 10.8 (5-15) BUN 23 H (7-18) mg/dL Creatinine 1.1 H (0.55-1.02) mg/dL Est Cr Clr Drug Dosing 35.06 mL/min Estimated GFR (MDRD) 48 (>60) mL/min BUN/Creatinine Ratio 20.9 H (14-18) Glucose 117 H (70-99) mg/dL Lactic Acid (0.4-2.0) mmol/L Calcium 8.3 L (8.5-10.1) mg/dL Magnesium 2.0 (1.8-2.4) mg/dL Total Bilirubin 2.2 H (0.2-1.0) mg/dL AST 51 H (15-37) U/L ALT 100 H (14-59) U/L Alkaline Phosphatase 106 (46-116) U/L Troponin I (0.00-0.056) ng/mL C-Reactive Protein (<1.0) mg/dL NT-Pro-B Natriuret Pep 1435 H (0-450) pg/mL Total Protein 6.4 (6.4-8.2) g/dl Albumin 2.8 L (3.4-5.0) g/dl Globulin 3.6 gm/dL Albumin/Globulin Ratio 0.8 L (1-2) TSH 3rd Generation 1.027 (0.358-3.74) uIU/mL Urine Color (Yellow) Urine Appearance (Clear) Urine pH (5.0-8.0) Ur Specific [place] (1.005-1.030) Urine Protein (Negative) Urine Glucose (UA) (Negative) Urine Ketones (Negative) Urine Occult Blood (Negative) Urine Nitrite (Negative) Urine Bilirubin (Negative) Urine Urobilinogen (0.2-1.0) Ur Leukocyte Esterase (Negative) Urine RBC (0-5) /hpf Urine WBC (0-5) /hpf Ur Squamous Epith Cells (0-5) /hpf Urine Bacteria (FEW) /hpf Urine Mucus (FEW) /hpf Influenza Type A RNA (NEGATIVE) Influenza Type B RNA (NEGATIVE) SARS-CoV-2 RNA (REGULO) (NEGATIVE) Blood Type Gel Antibody Screen Crossmatch 02/10/21 02/10/21 02/10/21 Range/Units 10:15 10:15 10:15 WBC (3.98-10.04) K/mm3 RBC (3.98-5.22) M/mm3 Hgb (11.2-15.7) gm/dl Hct (34.1-44.9) % MCV (79.4-94.8) fl MCH (25.6-32.2) pg MCHC (32.2-35.5) g/dl RDW Std Deviation (36.4-46.3) fL Plt Count (182-369) K/mm3 MPV (9.4-12.3) fl Neut % (Auto) (34.0-71.1) % Lymph % (Auto) (19.3-51.7) % Preston % (Auto) (4.7-12.5) % Eos % (Auto) (0.7-5.8) Baso % (Auto) (0.1-1.2) % Neut # (Auto) (1.56-6.13) K/mm3 Lymph # (Auto) (1.18-3.74) K/mm3 Preston # (Auto) (0.24-0.36) K/mm3 Eos # (Auto) (0.04-0.36) K/mm3 Baso # (Auto) (0.01-0.08) K/mm3 Manual Slide Review D-Dimer, Quantitative (0.19-0.50) mg/L Sodium (136-145) mEq/L Potassium (3.5-5.1) mEq/L Chloride (98-107) mEq/L Carbon Dioxide (21-32) mEq/L Anion Gap (5-15) BUN (7-18) mg/dL Creatinine (0.55-1.02) mg/dL Est Cr Clr Drug Dosing mL/min Estimated GFR (MDRD) (>60) mL/min BUN/Creatinine Ratio (14-18) Glucose (70-99) mg/dL Lactic Acid 0.8 (0.4-2.0) mmol/L Calcium (8.5-10.1) mg/dL Magnesium (1.8-2.4) mg/dL Total Bilirubin (0.2-1.0) mg/dL AST (15-37) U/L ALT (14-59) U/L Alkaline Phosphatase (46-116) U/L Troponin I (0.00-0.056) ng/mL C-Reactive Protein 15.6 H* (<1.0) mg/dL NT-Pro-B Natriuret Pep (0-450) pg/mL Total Protein (6.4-8.2) g/dl Albumin (3.4-5.0) g/dl Globulin gm/dL Albumin/Globulin Ratio (1-2) TSH 3rd Generation (0.358-3.74) uIU/mL Urine Color (Yellow) Urine Appearance (Clear) Urine pH (5.0-8.0) Ur Specific [place] (1.005-1.030) Urine Protein (Negative) Urine Glucose (UA) (Negative) Urine Ketones (Negative) Urine Occult Blood (Negative) Urine Nitrite (Negative) Urine Bilirubin (Negative) Urine Urobilinogen (0.2-1.0) Ur Leukocyte Esterase (Negative) Urine RBC (0-5) /hpf Urine WBC (0-5) /hpf Ur Squamous Epith Cells (0-5) /hpf Urine Bacteria (FEW) /hpf Urine Mucus (FEW) /hpf Influenza Type A RNA (NEGATIVE) Influenza Type B RNA (NEGATIVE) SARS-CoV-2 RNA (REGULO) (NEGATIVE) Blood Type B POSITIVE Gel Antibody Screen Negative Crossmatch See Detail 02/10/21 Range/Units 15:00 WBC (3.98-10.04) K/mm3 RBC (3.98-5.22) M/mm3 Hgb (11.2-15.7) gm/dl Hct (34.1-44.9) % MCV (79.4-94.8) fl MCH (25.6-32.2) pg MCHC (32.2-35.5) g/dl RDW Std Deviation (36.4-46.3) fL Plt Count (182-369) K/mm3 MPV (9.4-12.3) fl Neut % (Auto) (34.0-71.1) % Lymph % (Auto) (19.3-51.7) % Preston % (Auto) (4.7-12.5) % Eos % (Auto) (0.7-5.8) Baso % (Auto) (0.1-1.2) % Neut # (Auto) (1.56-6.13) K/mm3 Lymph # (Auto) (1.18-3.74) K/mm3 Preston # (Auto) (0.24-0.36) K/mm3 Eos # (Auto) (0.04-0.36) K/mm3 Baso # (Auto) (0.01-0.08) K/mm3 Manual Slide Review D-Dimer, Quantitative (0.19-0.50) mg/L Sodium (136-145) mEq/L Potassium (3.5-5.1) mEq/L Chloride (98-107) mEq/L Carbon Dioxide (21-32) mEq/L Anion Gap (5-15) BUN (7-18) mg/dL Creatinine (0.55-1.02) mg/dL Est Cr Clr Drug Dosing mL/min Estimated GFR (MDRD) (>60) mL/min BUN/Creatinine Ratio (14-18) Glucose (70-99) mg/dL Lactic Acid (0.4-2.0) mmol/L Calcium (8.5-10.1) mg/dL Magnesium (1.8-2.4) mg/dL Total Bilirubin (0.2-1.0) mg/dL AST (15-37) U/L ALT (14-59) U/L Alkaline Phosphatase (46-116) U/L Troponin I (0.00-0.056) ng/mL C-Reactive Protein (<1.0) mg/dL NT-Pro-B Natriuret Pep (0-450) pg/mL Total Protein (6.4-8.2) g/dl Albumin (3.4-5.0) g/dl Globulin gm/dL Albumin/Globulin Ratio (1-2) TSH 3rd Generation (0.358-3.74) uIU/mL Urine Color Yellow (Yellow) Urine Appearance Clear (Clear) Urine pH 6.5 (5.0-8.0) Ur Specific [place] <=1.005 (1.005-1.030) Urine Protein Trace H (Negative) Urine Glucose (UA) Negative (Negative) Urine Ketones Negative (Negative) Urine Occult Blood 2+ H (Negative) Urine Nitrite Positive H (Negative) Urine Bilirubin Negative (Negative) Urine Urobilinogen 1.0 (0.2-1.0) Ur Leukocyte Esterase Trace H (Negative) Urine RBC 5-10 H (0-5) /hpf Urine WBC 5-10 H (0-5) /hpf Ur Squamous Epith Cells 0-5 (0-5) /hpf Urine Bacteria Few (FEW) /hpf Urine Mucus Few (FEW) /hpf Influenza Type A RNA (NEGATIVE) Influenza Type B RNA (NEGATIVE) SARS-CoV-2 RNA (REGULO) (NEGATIVE) Blood Type Gel Antibody Screen Crossmatch Meds: Medications Discontinued Medications Generic Name Dose Route Start Last Admin Trade Name Freq PRN Reason Stop Dose Admin Bismuth Subsalicylate 30 ml 02/10/21 18:25 02/10/21 22:17 Bismuth Subsalicylate 262 Mg/15 Ml Susp 236 Ml Bottle PO 02/10/21 18:26 30 ml ONETIME ONE Administration Heparin Sodium (Porcine) Confirm 02/10/21 23:46 02/11/21 00:10 Heparin Sodium 100 Units/Ml 5 Ml Syringe Administered 02/10/21 23:47 500 units Dose Administration 500 units .ROUTE .STK-MED ONE Lactated Ringer's 1,000 mls @ 150 mls/hr 02/10/21 11:15 02/10/21 11:35 Ringers, Lactated IV 150 mls/hr ASDIRECTED MAYRA Administration Potassium Chloride 10 meq/ 100 mls @ 100 mls/hr 02/10/21 11:15 02/10/21 15:30 Premix IV 02/10/21 15:14 100 mls/hr Q1H MAYRA Administration Sodium Chloride 100 mls @ 75 mls/hr 02/10/21 12:45 02/10/21 12:50 Normal Saline IV 75 mls/hr ASDIRECTED MAYRA Administration Sodium Chloride 250 mls @ 10 mls/hr 02/10/21 16:00 Normal Saline IV ASDIRECTED MAYRA Iopamidol 100 ml 02/10/21 12:32 02/10/21 12:49 Iopamidol 755 Mg/Ml 100 Ml Bottle IVPUSH 02/10/21 12:33 100 ml ONETIME ONE Administration Magnesium Oxide 400 mg 02/10/21 11:50 02/10/21 13:13 Magnesium Oxide 400 Mg Tab PO 02/10/21 11:51 400 mg ONETIME ONE Administration Ondansetron HCl 4 mg 02/10/21 22:01 02/10/21 22:17 Ondansetron 4 Mg/2 Ml Sdv IVPUSH 02/10/21 22:02 4 mg ONETIME ONE Administration Potassium Chloride 40 meq 02/10/21 11:50 02/10/21 13:13 Potassium Chloride 20 Meq Tab.Er PO 02/10/21 11:51 40 meq ONETIME ONE Administration Potassium Chloride 40 meq 02/10/21 20:12 02/10/21 22:02 Potassium Chloride 20 Meq Tab.Er PO 02/10/21 20:13 40 meq ONETIME ONE Administration Sodium Chloride 10 ml 02/10/21 09:59 02/10/21 10:52 Sodium Chloride 0.9% 10 Ml Syringe FLUSH 10 ml ASDIRECTED PRN Administration Keep Vein Open Sodium Chloride 10 ml 02/10/21 12:32 02/10/21 12:49 Sodium Chloride 0.9% 10 Ml Syringe FLUSH 10 ml ONETIME PRN Administration IV FLUSH - Re-Assessments/Exams Free Text/Narrative Re-Assessment/Exam: 02/10/21 10:42 Pain patient could have syncopal episode on the toilet. Still concerning with her urinalysis from yesterday not knowing when she is taking. EKG shows a prolonged QT and dysrhythmia certainly in the differential, As it is infectious etiology. 02/10/21 11:59 Platelets today are 7 they were 3 yesterday before the transfusion. Hemoglobin hematocrit quite low given she just had a syncopal episode. Situation was reviewed with Dr. Webber ticket marker oncologist on-call at [facility] in [place] who is covering for Dr. Rouse recommendation is 1 unit of platelets 2 units packed red cells. 02/10/21 12:24 We will check a chest CTA as her D-dimer is elevated and she did have a syncopal episode. 02/10/21 18:29 Patient is having some abdominal discomfort she took Pepto-Bismol for this last evening and it helped we will give a dose now and see if it helps. Departure - Departure Time of Disposition: 00:30 Disposition: Home, Self-Care 01 Clinical Impression: Myelodysplastic syndrome, Thrombocytopenia Leukopenia Qualifiers: Leukopenia type: unspecified Qualified Code(s): D72.819 - Decreased white blood cell count, unspecified Anemia Qualifiers: Anemia type: other cause Other causes of anemia: other cause, not classified Qualified Code(s): D64.89 - Other specified anemias - Discharge Information Prescriptions: Potassium Chloride [Klor-Con M20] 20 meq PO BID #4 tab.er.prt Instructions: Myelodysplastic Syndrome, Anemia, Leukopenia, Thrombocytopenia, [id number] Referrals: Fidencio Evans NP [Primary Care Provider] - Forms: ED Department Discharge Additional Instructions: Return to the emergency room with any questions problems or worsening symptoms. Follow-up with your ticket marker as soon as you can next week for recheck. I sent prescription for potassium to [facility] on . Pick these up tomorrow take 1 twice daily tomorr and Saturday. When you follow-up with your healthcare providers when they recheck your blood have them recheck your potassium on Saturday. Follow-up with your regular healthcare provider as soon as you can for a recheck as well. Discuss with them if maybe your stomach would do better on famotidine rather than the Protonix thinking you might have atrophic gastritis. Sepsis Event Note (ED) - Evaluation Sepsis Screening Result: No Definite Risk - Focused Exam Vital Signs: Vital Signs Temp Pulse Resp BP Pulse Ox 02/11/21 00:28 68 18 120/75 95 02/10/21 22:56 37.2 C 66 134/75 02/10/21 21:33 37.3 C 65 112/75 02/10/21 19:29 36.9 C 66 18 120/56 L - My Orders Last 24 Hours: My Active Orders 02/10/21 10:00 Blood Culture x2 Reflex Set [OM.PC] Stat Peripheral IV Insertion Adult [OM.PC] Stat 02/10/21 10:15 BLOOD CULTURE [MREF] Stat 02/10/21 10:28 BLOOD CULTURE [MREF] Stat 02/10/21 10:44 Blood Culture x2 Reflex Set [OM.PC] Stat 02/10/21 12:00 Transfuse PRBC [Transfuse Red Blood Cells] [COMM] Stat Transfuse Platelets [COMM] Stat - Assessment/Plan Last 24 Hours: My Active Orders 02/10/21 10:00 Blood Culture x2 Reflex Set [OM.PC] Stat Peripheral IV Insertion Adult [OM.PC] Stat 02/10/21 10:15 BLOOD CULTURE [MREF] Stat 02/10/21 10:28 BLOOD CULTURE [MREF] Stat 02/10/21 10:44 Blood Culture x2 Reflex Set [OM.PC] Stat 02/10/21 12:00 Transfuse PRBC [Transfuse Red Blood Cells] [COMM] Stat Transfuse Platelets [COMM] Stat
[2021-02-10] MEDS ORDERED: Lactated Ringers 1,000 ML IV SCH (11:15)
[2021-02-10 11:23] LABS: CORONAVIRUS COVID-19 NAA NEGATIVE (NEGATIVE)
[2021-02-10] MEDS: Potassium Chloride 10 MEQ in Premix Bag 1 BAG IV SCH ×4 (11:35→15:30)
--- NOTE | 2021-02-10 11:36 | CR ---
Chest: Portable view of the chest was obtained. Comparison: Prior chest x-ray of 01/08/17. Heart size is normal. Tortuous thoracic aorta is seen. Right-sided infusion catheter is noted. Lungs are clear with no acute parenchymal change. Bony structures are osteopenic. Scattered disc space narrowing and endplate spurring are noted within the spine. Impression: 1. Findings as described above. 2. Nothing acute is seen on portable chest x-ray. Diagnostic code #2
[2021-02-10] MEDS ORDERED: Magnesium Oxide 400 MG Tab PO ONE (11:50)
[2021-02-10] MEDS ORDERED: Potassium Chloride 20 MEQ Tab.ER PO ONE ×2 (11:50→20:12)
[2021-02-10] MEDS ORDERED: Iopamidol 755 Mg/ML 100 ML Bottle IVPUSH ONE (12:32)
[2021-02-10] MEDS ORDERED: Sodium Chloride 0.9% 100 ML IV SCH (12:45)
--- NOTE | 2021-02-10 13:02 | CT ---
CT chest Technique: Multiple axial sections through the chest were obtained. Intravenous contrast was utilized. Study has been performed as a pulmonary angiogram protocol. Findings: Pulmonary arteries are well opacified. No filling defects are seen to indicate pulmonary embolism. Thoracic aorta shows atherosclerotic calcification with no aneurysm. Small lymph nodes are seen in the mediastinum which are felt to be within normal limits. Artifact is noted from injection catheter. No pericardial thickening is seen. Spleen is felt to be enlarged but cannot be measured as it was not completely included on the study. Small hiatal hernia is noted. Very slight dependent atelectasis is noted within both lung bases. No acute parenchymal change is seen. Bone window settings were reviewed. Diffuse degenerative change is seen throughout the spine with disc space narrowing and endplate spurring. No acute osseous finding is seen. Impression: 1. No findings of pulmonary embolism. 2. Spleen is enlarged. 3. Small hiatal hernia. 4. Artifact from injection catheter. 5. No acute abnormality is appreciated within the chest. Diagnostic code #3
[2021-02-10] MEDS ORDERED: Sodium Chloride 0.9% 250 ML IV SCH (16:00)
[2021-02-10] MEDS ORDERED: Bismuth Subsalicylate 262 MG/15 ML Susp 236 ML Bottle PO ONE (18:25)
[2021-02-10] MEDS ORDERED: Ondansetron 4 MG/2 ML SDV IVPUSH ONE (22:01)
[2021-02-11 00:30] VITALS: BP 120/75; PULSE 68
== END 2021-02-11 00:28 | disposition home or self-care (01) ==
LOC: JD.ED 09:41
DX: D69.6 Thrombocytopenia, unspecified (principal); D46.9 Myelodysplastic syndrome, unspecified; Z88.2 Allergy status to sulfonamides; Z20.822 Contact with and (suspected) exposure to COVID-19
CPT/HCPCS: 0240U; 36415; 36430; 71045; 71275; 80053; 81001; 83605; 83735; 83880; 84443; 84484; 85025; 85379; 86140; 86850; 86900; 86901; 86922; 87040; 93005; 96365; 96366; 96375; 99285; A9270; J1642; J2405; J3480; J7120; P9016; P9034; Q9967

== ENCOUNTER 2021-03-01 23:18 | Emergency (ER) | payer MEDICARE, OTHER ==
[2021-03-01 23:31] VITALS: BP 103/58; PULSE 91
[2021-03-02] MEDS ORDERED: Ondansetron 4 MG/2 ML SDV IVPUSH ONE (01:25)
[2021-03-02] MEDS ORDERED: Sodium Chloride 0.9% 1,000 ML IV ONE (01:25)
[2021-03-02] MEDS ORDERED: HYDROmorphone 0.5 MG/0.5 ML Syringe IVPUSH ONE (01:37)
--- NOTE | 2021-03-02 01:39 | EDM.PDOC ---
ED HPI GENERAL MEDICAL PROBLEM - General Chief Complaint: General Stated Complaint: ROJAS AMB Time Seen by Provider: 03/02/21 01:05 Source of Information: Reports: Patient, Family () History Limitations: Reports: Uncooperative (Responds "I don't know" to most questons) - History of Present Illness INITIAL COMMENTS - FREE TEXT/NARRATIVE: Ms. Leija is an unfortunate 80-year-old woman with a past medical history significant for pancytopenia due to myelodysplastic syndrome, status post a PRBC transfusion this past 02/28/2021 and a platelet transfusion yesterday, 03/01/2021, who now presents the ED by EMS for generalized malaise, telling the triage nurse "I can't go on like this anymore". She states that she has had nausea and vomiting on and off for the past 3 months, as well as 2 days of anorexia, crampy abdominal pain, and feeling shaky. She states that the abdominal pain comes and goes, typically lasting for about an hour, but she cannot say what the frequency is. She stated "just give me an enema" stating that she had a small bowel movement recently, but was unable to say what the consistency was. She also reports having dysuria, but cannot say how long. No recent fever, cough, or dyspnea. She states that she is prescribed an antiemetic, but does not recall the name, and states that she last took it about 2 days ago. At triage, the patient's initial BP was found to be mildly depressed at 103/58, otherwise, she was hemodynamically stable, afebrile, saturating 91% on room air. She appears to be fatigued, although in no acute distress. The patient denies having a recent fever, chills, sore throat, ear pain, nasal or sinus congestion, cough, dyspnea, chest pain, palpitations, diarrhea, recent weight gain or weight loss, recent bloody bowel movements or black bowel movements, recent joint aches, headaches, or rashes. The patient's Dean Of Education/oncologist is Dr. Rashid Rouse, buthe patient primarily sees his midlevel EllenSarahy Urrutia NP. She has received 2 COVID vaccinations plus a booster, although no influenza vaccination this season. - Related Data Allergies Allergy/AdvReac Type Severity Reaction Status Date / Time Sulfa (Sulfonamide AdvReac Mild Headache Verified 02/17/21 09:42 Antibiotics) Home Meds: Home Meds Latanoprost [Xalatan 0.005% Ophth Soln] 1 drop EYEBOTH BEDTIME 02/08/15 [History] Magnesium Oxide [Magnesium] 400 mg PO DAILY 07/12/18 [History] Potassium Chloride 20 meq PO DAILY #10 packet 12/15/20 [Rx] Epoetin Flaco [Procrit] 80,000 units SUBCUT WEEKLY 02/10/21 [History] Lidocaine/Prilocaine [EMLA Crm] 1 applic TOP ONCALL PRN 02/10/21 [History] Pantoprazole [ProTONIX] 40 mg PO DAILY PRN 02/10/21 [History] Potassium Chloride [Klor-Con M20] 20 meq PO BID #4 tab.er.prt 02/10/21 [Rx] nitrofurantoin macrocrystaL [Nitrofurantoin] 100 mg PO BID 02/10/21 [History] traMADol [Ultram] 50 mg PO Q6H PRN 02/10/21 [History] Nitrofurantoin Scott/Macrocryst [Nitrofurantoin Scott-MCR] 1 cap PO Q12H #9 cap 03/02/21 [Rx] Past Medical History HEENT History: Reports: Impaired Vision Gastrointestinal History: Reports: Diverticulosis (diverticulitis), GERD, Inflammatory Bowel Disease (ulcerative colitis) Genitourinary History: Reports: Urinary Incontinence (stress incontinence) Musculoskeletal History: Reports: Osteoarthritis Hematologic History: Reports: Blood Transfusion(s), Other (See Below) (Myelodysplastic syndrome (MDS)) - Infectious Disease History Infectious Disease History: Reports: Measles - Past Surgical History HEENT Surgical History: Reports: Cataract Surgery Cardiovascular Surgical History: Reports: Other (See Below) (Right Port-A-Cath) GI Surgical History: Reports: Cholecystectomy, Colon (Ileocecectomy 2014), Colonoscopy (x "lots"), Other (See Below) (Hemorrhoidectomy) Female Surgical History: Reports: Hysterectomy Social & Family History - Tobacco Use Tobacco Use Status *Q: Never Tobacco User - Caffeine Use Caffeine Use: Reports: None - Alcohol Use Alcohol Use History: No - Recreational Drug Use Recreational Drug Use: No - Living Situation & Occupation Living situation: Reports: , with Spouse Occupation: Retired ED ROS GENERAL - Review of Systems Review Of Systems: Comprehensive ROS is negative, except as noted in HPI. ED EXAM, GENERAL - Physical Exam Exam: See Below Exam Limited By: No Limitations General Appearance: Alert, WD/WN, No Apparent Distress Eye Exam: Bilateral Eye: EOMI, Normal Inspection Ears: Normal External Exam, Hearing Grossly Normal Nose: Normal Inspection Throat/Mouth: Normal Inspection, Normal Lips, Normal Voice, No Airway Compromise Head: Atraumatic, Normocephalic Neck: Normal Inspection, Full Range of Motion Respiratory/Chest: No Respiratory Distress, Lungs Clear, Normal Breath Sounds, No Accessory Muscle Use Cardiovascular: Normal Peripheral Pulses, Regular Rate, Rhythm, No Edema, No Gallop, No JVD, No Murmur, No Rub Peripheral Pulses: 3+: Radial (L), Radial (R) GI/Abdominal: Normal Bowel Sounds, Soft, No Organomegaly, No Distention, No Abnormal Bruit, No Mass, Tender (generalized, non-focal) Back Exam: Normal Inspection, Full Range of Motion, NT Extremities: Normal Inspection, Normal Range of Motion, No Pedal Edema, Normal Capillary Refill Neurological: Alert, Oriented, Normal Cognition, No Motor/Sensory Deficits Psychiatric: Depressed Mood, Flat Affect Skin Exam: Warm, Dry, Intact, Normal Color, No Rash Course - Vital Signs Last Recorded V/S: Last Vital Signs Temp 37.4 C 03/01/21 23:25 Pulse 91 03/01/21 23:25 Resp 18 03/01/21 23:25 BP 103/58 L 03/01/21 23:25 Pulse Ox 91 L 03/01/21 23:25 - Orders/Labs/Meds Orders: Active Orders 24 hr Category Date Time Status Abdomen 1V Flat [CR] Stat Exams 03/02/21 01:26 Ordered Chest 2V [CR] Stat Exams 03/01/21 23:54 Taken COVID-19/FLU A+B [MOLEC] Stat Lab 03/01/21 23:53 Ordered CULTURE URINE [MREF] Stat Lab 03/02/21 23:25 Ordered Labs: Laboratory Tests 03/01/21 03/02/21 03/02/21 Range/Units 23:25 00:14 00:14 WBC 0.57 L* (3.98-10.04) K/mm3 RBC 2.80 L (3.98-5.22) M/mm3 Hgb 8.0 L (11.2-15.7) gm/dl Hct 24.3 L (34.1-44.9) % MCV 86.8 (79.4-94.8) fl MCH 28.6 (25.6-32.2) pg MCHC 32.9 (32.2-35.5) g/dl RDW Std Deviation 41.6 (36.4-46.3) fL Plt Count 39 L (182-369) K/mm3 MPV 9.8 (9.4-12.3) fl Neutrophils % (Manual) 57 (40-60) % Band Neutrophils % 0 (0-10) % Lymphocytes % (Manual) 36 (20-40) % Atypical Lymphs % 0 % Monocytes % (Manual) 7 (2-10) % Eosinophils % (Manual) 0 L (0.7-5.8) % Basophils % (Manual) 0 L (0.1-1.2) Toxic Granulation Few Platelet Estimate Marked dec Plt Morphology Comment See note Hypochromasia 1+ slight Anisocytosis 1+ slight Spherocytes 1+ slight RBC Morph Comment Abnormal D-Dimer, Quantitative (0.19-0.50) mg/L Sodium (136-145) mEq/L Potassium (3.5-5.1) mEq/L Chloride (98-107) mEq/L Carbon Dioxide (21-32) mEq/L Anion Gap (5-15) BUN (7-18) mg/dL Creatinine (0.55-1.02) mg/dL Est Cr Clr Drug Dosing mL/min Estimated GFR (MDRD) (>60) mL/min BUN/Creatinine Ratio (14-18) Glucose (70-99) mg/dL Calcium (8.5-10.1) mg/dL Magnesium (1.8-2.4) mg/dL Total Bilirubin (0.2-1.0) mg/dL AST (15-37) U/L ALT (14-59) U/L Alkaline Phosphatase (46-116) U/L Troponin I (0.00-0.056) ng/mL NT-Pro-B Natriuret Pep 2446 H (0-450) pg/mL Total Protein (6.4-8.2) g/dl Albumin (3.4-5.0) g/dl Globulin gm/dL Albumin/Globulin Ratio (1-2) Urine Color [place] H (Yellow) Urine Appearance Slt cloudy H (Clear) Urine pH 6.0 (5.0-8.0) Ur Specific [place] 1.010 (1.005-1.030) Urine Protein 3+ H (Negative) Urine Glucose (UA) Trace H (Negative) Urine Ketones Negative (Negative) Urine Occult Blood 1+ H (Negative) Urine Nitrite Positive H (Negative) Urine Bilirubin 1+ H (Negative) Urine Urobilinogen 2.0 H (0.2-1.0) Ur Leukocyte Esterase Trace H (Negative) Urine RBC 5-10 H (0-5) /hpf Urine WBC 20-30 H (0-5) /hpf Ur Squamous Epith Cells 0-5 (0-5) /hpf Urine Bacteria Moderate H (FEW) /hpf Urine Mucus Rare (FEW) /hpf 03/02/21 03/02/21 Range/Units 00:40 00:40 WBC (3.98-10.04) K/mm3 RBC (3.98-5.22) M/mm3 Hgb (11.2-15.7) gm/dl Hct (34.1-44.9) % MCV (79.4-94.8) fl MCH (25.6-32.2) pg MCHC (32.2-35.5) g/dl RDW Std Deviation (36.4-46.3) fL Plt Count (182-369) K/mm3 MPV (9.4-12.3) fl Neutrophils % (Manual) (40-60) % Band Neutrophils % (0-10) % Lymphocytes % (Manual) (20-40) % Atypical Lymphs % % Monocytes % (Manual) (2-10) % Eosinophils % (Manual) (0.7-5.8) % Basophils % (Manual) (0.1-1.2) Toxic Granulation Platelet Estimate Plt Morphology Comment Hypochromasia Anisocytosis Spherocytes RBC Morph Comment D-Dimer, Quantitative 0.95 H (0.19-0.50) mg/L Sodium 134 L (136-145) mEq/L Potassium 2.9 L (3.5-5.1) mEq/L Chloride 96 L (98-107) mEq/L Carbon Dioxide 33 H (21-32) mEq/L Anion Gap 7.9 (5-15) BUN 28 H (7-18) mg/dL Creatinine 1.2 H (0.55-1.02) mg/dL Est Cr Clr Drug Dosing 31.45 mL/min Estimated GFR (MDRD) 43 (>60) mL/min BUN/Creatinine Ratio 23.3 H (14-18) Glucose 138 H (70-99) mg/dL Calcium 8.4 L (8.5-10.1) mg/dL Magnesium 2.0 (1.8-2.4) mg/dL Total Bilirubin 2.8 H (0.2-1.0) mg/dL AST 45 H (15-37) U/L ALT 77 H (14-59) U/L Alkaline Phosphatase 89 (46-116) U/L Troponin I < 0.017 (0.00-0.056) ng/mL NT-Pro-B Natriuret Pep (0-450) pg/mL Total Protein 6.3 L (6.4-8.2) g/dl Albumin 2.9 L (3.4-5.0) g/dl Globulin 3.4 gm/dL Albumin/Globulin Ratio 0.9 L (1-2) Urine Color (Yellow) Urine Appearance (Clear) Urine pH (5.0-8.0) Ur Specific [place] (1.005-1.030) Urine Protein (Negative) Urine Glucose (UA) (Negative) Urine Ketones (Negative) Urine Occult Blood (Negative) Urine Nitrite (Negative) Urine Bilirubin (Negative) Urine Urobilinogen (0.2-1.0) Ur Leukocyte Esterase (Negative) Urine RBC (0-5) /hpf Urine WBC (0-5) /hpf Ur Squamous Epith Cells (0-5) /hpf Urine Bacteria (FEW) /hpf Urine Mucus (FEW) /hpf Meds: Medications Discontinued Medications Generic Name Dose Route Start Last Admin Trade Name Freq PRN Reason Stop Dose Admin Hydromorphone HCl 0.5 mg 03/02/21 01:37 03/02/21 02:01 Hydromorphone 0.5 Mg/0.5 Ml Syringe IVPUSH 03/02/21 01:38 0.5 mg ONETIME ONE Administration Sodium Chloride 1,000 mls @ 999 mls/hr 03/02/21 01:25 03/02/21 02:02 Normal Saline IV 03/02/21 02:25 999 mls/hr ONETIME ONE Administration Nitrofurantoin Macrocrystals 100 mg 03/02/21 02:18 Nitrofurantoin Monohydrate/Macrocrystalline 100 Mg Cap PO 03/02/21 02:19 ONETIME STA Ondansetron HCl 4 mg 03/02/21 01:25 03/02/21 02:01 Ondansetron 4 Mg/2 Ml Sdv IVPUSH 03/02/21 01:26 4 mg ONETIME ONE Administration Potassium Chloride 40 meq 03/02/21 02:20 Potassium Chloride 20 Meq Tab.Er PO 03/02/21 02:21 ONETIME ONE - Re-Assessments/Exams Free Text/Narrative Re-Assessment/Exam: 03/02/21 01:35 Numerous blood tests, a urinalysis by quick catheter, a swab for the SARS-CoV-2 virus and influenza A + B viruses, a chest x-ray, and a flat plate abdominal x- ray have been ordered (because she is on tramadol, there's a good chance that she is constipated), however, I was told that the patient refused the swab for the SARS-CoV-2 virus and influenza A + B viruses. I have ordered some IV Dilaudid, IV Zofran, and IV fluid to see if we can get her more comfortable. 03/02/21 02:19 Two-view chest radiograph appears to be grossly unremarkable. The cardiac silhouette is within normal limits. No pulmonary vascular congestion. No pleural effusions. No focal infiltrate. No pneumothorax. A right-sided Port-A-Cath is noted. Formal read per the Radiologist pending. The patient's CBC is remarkable for pancytopenia, including leukopenia of 0.57, with an ANC of 324.9, anemia with an H/H depressed at 8.0/24.3, and thrombocytopenia of 39,000. Her CMP is remarkable for slight hyponatremia of 134, hypokalemia of 2.9, a bicarbonate elevated at 33, a BUN/Cr elevated at 28/1.2, mild hyperglycemia of 138, a TBil elevated at 2.8, and an AST/ALT mildly elevated at 45/77, respectively, with the remainder of her CMP being unremarkable. Her magnesium level is within normal limits at 2.0. Her troponin is undetectably low. Her pro-BNP is modestly elevated at 2446. Her D-dimer is mildly elevated at 0.95. Her urinalysis is remarkable for orange color and slightly cloudy appearance, 1+ occult blood with 5-10 RBCs, trace leukocyte esterase with 20-30 WBCs, nitrate positive with moderate bacteria, and 0-5 squamous epithelial cells. The abdominal flatplate x-ray has not yet resulted. Review of prior labs finds that the patient's pancytopenia, hypokalemia, renal insufficiency, elevated TBil, and elevated AST/ALT are chronic. While her pro-BNP is modestly elevated, her chest x-ray shows no signs of CHF. Her D-dimer was 1.06 on 02/10/2021, and a CT angiogram of the chest at that time was negative for a PE. Based on the above, I have ordered a urine culture, and will start the patient on nitrofurantoin, as well as give her a single dose of oral KCl. 03/02/21 02:55 Abdominal flatplate radiograph appears to demonstrate small lumps of stool within her descending colon and rectum, but no other stool seen elsewhere in the colon. Otherwise nonspecific bowel gas pattern. Surgical clips in the right upper quadrant consistent with prior cholecystectomy. Formal read per the Radiologist pending. 03/02/21 03:00 Test results discussed with the patient. She states that she is feeling considerably better. I will discharge her home with a prescription for nitrofurantoin and the recommendation that she stay adequately hydrated. Departure - Departure Time of Disposition: 03:00 Disposition: Home, Self-Care 01 Condition: Good Clinical Impression: Malaise and fatigue, Pancytopenia, Elevated liver function tests UTI (urinary tract infection) Qualifiers: Urinary tract infection type: acute cystitis Hematuria presence: with hematuria Qualified Code(s): N30.01 - Acute cystitis with hematuria - Discharge Information *PRESCRIPTION DRUG MONITORING PROGRAM REVIEWED*: Not Applicable *COPY OF PRESCRIPTION DRUG MONITORING REPORT IN PATIENT ARIELLE: Not Applicable Referrals: Fidencio Evans NP [Primary Care Provider] - Rashid Rouse MD [Ordering Only Provider] - Forms: ED Department Discharge Additional Instructions: You were seen in the emergency room for recurrent nausea and vomiting, poor appetite, abdominal pain, and feeling shaky. Work-up in the ER included numerous blood tests, a urinalysis, a chest x-ray, and an x-ray of your abdomen. Your work-up redemonstrated pancytopenia, but not so low that you require transfusion. Your potassium level was found to be low at 2.9. You were given oral replacement potassium in the ER. You appear to have a urinary tract infection. You have been started on the antibiotic nitrofurantoin, and a prescription for nitrofurantoin has been sent to the [facility], located at [address] [place] [address]. Take 1 tablet of nitrofurantoin every 12 hours, starting this evening, , 03/02/2021, as prescribed. Finish the entire prescription unless told otherwise by your doctor. Stay adequately hydrated. Follow-up with your oncology midlevel, Suha Ochoa NP, at the next available appointment. If any other problems, please do not hesitate to return to the ER. Sepsis Event Note (ED) - Evaluation Sepsis Screening Result: No Definite Risk - Focused Exam Vital Signs: Vital Signs Temp Pulse Resp BP Pulse Ox 03/01/21 23:25 37.4 C 91 18 103/58 L 91 L - My Orders Last 24 Hours: My Active Orders 03/01/21 23:53 COVID-19/FLU A+B [MOLEC] Stat 03/01/21 23:54 Chest 2V [CR] Stat 03/02/21 01:26 Abdomen 1V Flat [CR] Stat 03/02/21 23:25 CULTURE URINE [MREF] Stat - Assessment/Plan Last 24 Hours: My Active Orders 03/01/21 23:53 COVID-19/FLU A+B [MOLEC] Stat 03/01/21 23:54 Chest 2V [CR] Stat 03/02/21 01:26 Abdomen 1V Flat [CR] Stat 03/02/21 23:25 CULTURE URINE [MREF] Stat
[2021-03-02] MEDS ORDERED: Nitrofurantoin Monohydrate/Macrocrystalline 100 MG Cap PO STA (02:18)
[2021-03-02] MEDS ORDERED: Potassium Chloride 20 MEQ Tab.ER PO ONE (02:20)
--- NOTE | 2021-03-02 07:39 | CR ---
Chest: 2 views of the chest were obtained. Comparison: Prior chest x-ray of 01/08/17. Heart size is normal. Tortuous thoracic aorta is seen. Right-sided infusion catheter is noted. Lungs show no acute parenchymal change. Scattered disc space narrowing and endplate spurring is noted within the spine. Impression: 1. Degenerative change within the spine. Right-sided infusion catheter is noted. 2. Nothing acute is definitely appreciated on 2-view chest x-ray. Diagnostic code #2
--- NOTE | 2021-03-02 07:39 | CR ---
Abdomen: Portable view of the abdomen was obtained in supine projection. Bowel gas pattern appears normal. Surgical clips are seen from prior cholecystectomy. Mild degenerative change is scattered within the spine. Bony structures are also osteopenic. Impression: 1. Nothing acute is seen on supine abdominal x-ray. 2. Other chronic findings as noted above. Diagnostic code #2
== END 2021-03-02 03:50 | disposition home or self-care (01) ==
LOC: JD.ED 23:18
DX: N30.01 Acute cystitis with hematuria (principal); R53.81 Other malaise; R53.83 Other fatigue; R79.89 Other specified abnormal findings of blood chemistry; K21.9 Gastro-esophageal reflux disease without esophagitis; D61.818 Other pancytopenia; Z88.2 Allergy status to sulfonamides; Z79.899 Other long term (current) drug therapy
CPT/HCPCS: 36415; 71046; 74018; 80053; 81001; 83735; 83880; 84484; 85007; 85027; 85379; 87086; 87088; 87186; 96374; 96375; 99284; A9270; J1170; J1642; J2405; J7030

== ENCOUNTER 2021-03-06 12:34 | Inpatient (IN) | payer MEDICARE, OTHER ==
--- NOTE | 2021-03-06 13:17 | EDM.PDOC ---
ED HPI GENERAL MEDICAL PROBLEM - General Chief Complaint: General Stated Complaint: [facility] Time Seen by Provider: 03/06/21 12:49 Source of Information: Reports: EMS History Limitations: Reports: No Limitations - History of Present Illness INITIAL COMMENTS - FREE TEXT/NARRATIVE: Patient is 80-year-old female with history of myelodysplastic syndrome and currently is no longer getting any infusions or therapies. She basically is now comfort measures only DNR DNI, it sounds like she has not been able to find detention or place that has hospice care as she lives by herself at home alone. There is a son here at the bedside and is concerned that she was told to come in by for disposition and planning for hospice care. Patient has not been eating over the last 3 days lives alone, has difficult time doing any transferring, she wears depends. She has been really drinking much fluid. She is thirsty here currently. Denies any fevers she has some chills occasionally did fall and hit her head has a small contusion on the back of her head, no focal neurologic deficits noted. Her speech is clear, moves all extremities and follows commands. Not complaining of any chest pain breathing difficulty no vomiting or diarrhea no abdominal pain has been urinating although having to use her depends. No specific muscle aches or pains no neck pain or spine pain no fall injuries noted except for the head. - Related Data Allergies Allergy/AdvReac Type Severity Reaction Status Date / Time Sulfa (Sulfonamide AdvReac Severe Headache Verified 03/06/21 12:51 Antibiotics) Home Meds: Home Meds Latanoprost [Xalatan 0.005% Ophth Soln] 1 drop EYEBOTH BEDTIME 02/08/15 [Hist ory] Magnesium Oxide [Magnesium] 400 mg PO DAILY 07/12/18 [History] Potassium Chloride 20 meq PO DAILY #10 packet 12/15/20 [Rx] Epoetin Flaco [Procrit] 80,000 units SUBCUT WEEKLY 02/10/21 [History] Lidocaine/Prilocaine [EMLA Crm] 1 applic TOP ONCALL PRN 02/10/21 [History] Pantoprazole [ProTONIX] 40 mg PO DAILY PRN 02/10/21 [History] Potassium Chloride [Klor-Con M20] 20 meq PO BID #4 tab.er.prt 02/10/21 [Rx] nitrofurantoin macrocrystaL [Nitrofurantoin] 100 mg PO BID 02/10/21 [History] traMADol [Ultram] 50 mg PO Q6H PRN 02/10/21 [History] Nitrofurantoin [facility]/Macrocryst [Nitrofurantoin 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, diverticulitis Genitourinary History: Reports: Urinary Incontinence TOOL SPECIALIST History: Reports: Musculoskeletal History: Reports: Osteoarthritis Endocrine/Metabolic History: Reports: Hypokalemia, Hypomagnesemia Hematologic History: Reports: Blood Transfusion(s), Other (See Below) Other Hematologic History: myelodysplastic syndrome (MDS) - Infectious Disease History Infectious Disease History: Reports: Measles - Past Surgical History HEENT Surgical History: Reports: Cataract Surgery Cardiovascular Surgical History: Reports: Other (See Below) Respiratory Surgical History: Reports: None GI Surgical History: Reports: Cholecystectomy, Colon, Colonoscopy, Other (See Below) Other GI Surgeries/Procedures: hemorrhoidectomy Female Surgical History: Reports: Hysterectomy Musculoskeletal Surgical History: Reports: None Social & Family History - Family History Family Medical History: No Pertinent Family History HEENT: Reports: Impaired Vision Oncologic: Reports: Colon - Tobacco Use Tobacco Use Status *Q: Never Tobacco User - Caffeine Use Caffeine Use: Reports: Coffee - Recreational Drug Use Recreational Drug Use: No - Living Situation & Occupation Living situation: Reports: , with Spouse Occupation: Retired ED ROS GENERAL - Review of Systems Review Of Systems: See Below Constitutional: Reports: Chills, Weakness, Fatigue, Decreased Appetite. Denies: Fever HEENT: Denies: Rhinitis, Throat Pain Respiratory: Denies: Shortness of Breath, Cough Cardiovascular: Reports: Lightheadedness. Denies: Chest Pain, Syncope Endocrine: Reports: Fatigue GI/Abdominal: Reports: Anorexia, Decreased Appetite. Denies: Abdominal Pain, Diarrhea, Vomiting : Denies: Dysuria Musculoskeletal: Denies: Neck Pain, Shoulder Pain, Back Pain, Leg Pain Skin: Reports: Pallor Neurological: Reports: Headache, Difficulty Walking, Weakness. Denies: Numbness, Change in Speech Psychiatric: Reports: No Symptoms Hematologic/Lymphatic: Reports: Anemia ED EXAM, GENERAL - Physical Exam Exam: See Below Exam Limited By: No Limitations General Appearance: Alert, Mild Distress, Thin, Cachetic (Conjunctival pallor mucous membranes) Throat/Mouth: Normal Teeth, Normal Voice, No Airway Compromise Head: Atraumatic, Other (Contusion on the occipital prominence) Neck: Normal Inspection, Supple, Non-Tender, Full Range of Motion Respiratory/Chest: No Respiratory Distress, Lungs Clear, Decreased Breath Sounds Cardiovascular: Normal Peripheral Pulses, Regular Rate, Rhythm, No Edema GI/Abdominal: Normal Bowel Sounds, Soft, Non-Tender, No Mass Neurological: Alert, Oriented, Slow to Respond Psychiatric: Normal Mood Skin Exam: Warm, Dry, Pallor. No: Diaphoretic Course - Vital Signs Text/Narrative:: Patient here more or less to be placed for hospice care and/or detention care. Cannot take care of her self and is now elected to be DNR/DNI without any aggressive treatments but to remain more comfortable. She is thirsty. She is agreeable to some lab work and head CT, will discuss case with hospital medicine for help with disposition planning. Last Recorded V/S: Last Vital Signs Temp Pulse 88 03/06/21 12:45 Resp BP 97/63 03/06/21 12:45 Pulse Ox 89 L 03/06/21 12:45 - Orders/Labs/Meds Labs: Laboratory Tests 03/06/21 03/06/21 Range/Units 13:29 13:29 WBC 0.59 L* (3.98-10.04) K/mm3 RBC 2.58 L (3.98-5.22) M/mm3 Hgb 7.3 L* (11.2-15.7) gm/dl Hct 22.8 L (34.1-44.9) % MCV 88.4 (79.4-94.8) fl MCH 28.3 (25.6-32.2) pg MCHC 32.0 L (32.2-35.5) g/dl RDW Std Deviation 41.4 (36.4-46.3) fL Plt Count 14 L* (182-369) K/mm3 MPV TNP Neut % (Auto) 42.4 (34.0-71.1) % Lymph % (Auto) 22.0 (19.3-51.7) % [place] % (Auto) 15.3 H (4.7-12.5) % Eos % (Auto) 1.7 (0.7-5.8) Baso % (Auto) 1.7 H (0.1-1.2) % Neut # (Auto) 0.25 L (1.56-6.13) K/mm3 Lymph # (Auto) 0.13 L (1.18-3.74) K/mm3 [facility] [place] # (Auto) 0.09 L (0.24-0.36) K/mm3 Eos # (Auto) 0.01 L (0.04-0.36) K/mm3 Baso # (Auto) 0.01 (0.01-0.08) K/mm3 Manual Slide Review Abnormal smear Sodium 135 L (136-145) mEq/L Potassium 3.8 (3.5-5.1) mEq/L Chloride 99 (98-107) mEq/L Carbon Dioxide 25 (21-32) mEq/L Anion Gap 14.8 (5-15) BUN 54 H D (7-18) mg/dL Creatinine 1.6 H (0.55-1.02) mg/dL Est Cr Clr Drug Dosing 23.58 mL/min Estimated GFR (MDRD) 31 (>60) mL/min BUN/Creatinine Ratio 33.8 H (14-18) Glucose 136 H (70-99) mg/dL Calcium 7.9 L (8.5-10.1) mg/dL Total Bilirubin 1.3 H (0.2-1.0) mg/dL AST 52 H (15-37) U/L ALT 81 H (14-59) U/L Alkaline Phosphatase 76 (46-116) U/L Total Protein 6.0 L (6.4-8.2) g/dl Albumin 2.1 L (3.4-5.0) g/dl Globulin 3.9 gm/dL Albumin/Globulin Ratio 0.5 L (1-2) - Re-Assessments/Exams Free Text/Narrative Re-Assessment/Exam: 03/06/21 14:27 Reviewed the results and her white count of 0.59 hemoglobin 7.3 platelet counts only 14,000, she has creatinine 1.6 protein albumin stores are low LFTs are elevated. Discussed case with Dr. Nickerson for help with admission to help with disposition planning such as hospice care palliative care detention care at this point have not started IV patient does not want to have any other further interventions but just to keep comfortable. Son is also at the bedside. Departure - Departure Disposition: DC/Tfer to Hospice-Med Fac 51 Condition: Poor Clinical Impression: Pancytopenia, Myelodysplasia (myelodysplastic syndrome), Acute kidney injury Clinical Impression: (Ruled Out): Myelodysplastic disease - Discharge Information Forms: ED Department Discharge Sepsis Event Note (ED) - Focused Exam Vital Signs: Vital Signs Pulse BP Pulse Ox 03/06/21 12:45 88 97/63 89 L
--- NOTE | 2021-03-06 14:21 | CT ---
Head CT Technique: Multiple axial sections through the brain were obtained. Intravenous contrast was not utilized. Reconstructed coronal and sagittal images were obtained. Comparison: No prior intracranial imaging is available. Findings: Ventricles along with basal cisterns and sulci over the convexity are moderately prominent. More atrophy is seen within the frontal regions and temporal lobes. Minimal diminished density is noted within portions of the periventricular white matter compatible with small vessel ischemic demyelination change. No other abnormal parenchymal densities are seen. No evidence of intracranial hemorrhage is seen. No midline shift or mass-effect is seen. Bone window settings were reviewed. Visualized mastoid sinuses and paranasal sinuses show nothing acute. No acute calvarial abnormality is appreciated. Impression: 1. Diffuse senescent change as described above. 2. No acute intracranial abnormality is seen on noncontrast head CT study. Diagnostic code #2
[2021-03-06] MEDS ORDERED: Morphine 2 MG/ML SYRINGE IVPUSH PRN (15:26)
[2021-03-06] MEDS ORDERED: Promethazine 12.5 MG in Sodium Chloride 0.9% 50 ML IV PRN (15:26)
[2021-03-06] MEDS ORDERED: Acetaminophen 325 MG Tab PO PRN (15:26)
--- NOTE | 2021-03-06 16:25 | PCM.HP.2 ---
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 Patient is cu rrently no longer receiving any infusion or treatment and basically is now on DNR/DNI comfort measures. Patient lives alone at home and is unable to take care of herself. Over the past 3 days, she has not been eating well. Patient had a fall and got a hit on her head, producing a small contusion on the back of the head. In the ER, patient was found to have oxygen desaturation 89 on room air. Labs showed pancytopenia including white blood cells of 0.59, red blood cells of 2.58, platelets 14. CT of head negative for acute change. When I saw this patient in the ER, she complained of generalized weakness, low energy and poor appetite. - Related Data Allergies/Adverse Reactions: Allergies Allergy/AdvReac Type Severity Reaction Status Date / Time Sulfa (Sulfonamide AdvReac Intermediate Headache Verified 03/06/21 15:42 Antibiotics) Home Medications: Home Meds Latanoprost [Xalatan 0.005% Ophth Soln] 1 drop EYEBOTH BEDTIME 02/08/15 [History] Magnesium Oxide [Magnesium] 400 mg PO DAILY 07/12/18 [History] Potassium Chloride 20 meq PO DAILY #10 packet 12/15/20 [Rx] Epoetin Flaco [Procrit] 80,000 units SUBCUT WEEKLY 02/10/21 [History] Lidocaine/Prilocaine [EMLA Crm] 1 applic TOP ONCALL PRN 02/10/21 [History] Pantoprazole [ProTONIX] 40 mg PO DAILY PRN 02/10/21 [History] Potassium Chloride [Klor-Con M20] 20 meq PO BID #4 tab.er.prt 02/10/21 [Rx] nitrofurantoin macrocrystaL [Nitrofurantoin] 100 mg PO BID 02/10/21 [History] traMADol [Ultram] 50 mg PO Q6H PRN 02/10/21 [History] Nitrofurantoin [place]/Macrocryst [Nitrofurantoin [place]-MCR] 1 cap PO Q12H #9 cap 03/02/21 [Rx] Past Medical History HEENT History: Reports: Impaired Vision Cardiovascular History: Reports: None Respiratory History: Reports: Other (See Below) Other Respiratory History: cough Gastrointestinal History: Reports: Diverticulosis, GERD, Inflammatory Bowel Disease Other Gastrointestinal History: ulcerative colitis, esophagitis, 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, diverticulitis Genitourinary History: Reports: Urinary Incontinence 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: Musculoskeletal History: Reports: Osteoarthritis Endocrine/Metabolic History: Reports: Hypokalemia, Hypomagnesemia Hematologic History: Reports: Blood Transfusion(s), Other (See Below) Other Hematologic History: myelodysplastic syndrome (MDS) - Infectious Disease History Infectious Disease History: Reports: Measles - Past Surgical History HEENT Surgical History: Reports: Cataract Surgery Cardiovascular Surgical History: Reports: Other (See Below) Respiratory Surgical History: Reports: None GI Surgical History: Reports: Cholecystectomy, Colon, Colonoscopy, Other (See Below) Other GI Surgeries/Procedures: hemorrhoidectomy Female Surgical History: Reports: Hysterectomy Musculoskeletal Surgical History: Reports: None Social & Family History - Family History Family Medical History: No Pertinent Family History (Denies genetic diseases in family) HEENT: Reports: Impaired Vision Oncologic: Reports: Colon - Tobacco Use Tobacco Use Status *Q: Never Tobacco User - Caffeine Use Caffeine Use: Reports: Coffee - Recreational Drug Use Recreational Drug Use: No - Living Situation & Occupation Living situation: Reports: , with Spouse Occupation: Retired H&P Review of Systems - Review of Systems: Review Of Systems: See Below Review of Systems Comment:: Positive for generalized weakness, low energy and poor appetite. All other systems were reviewed and are negative. Exam - Exam Exam: See Below - Vital Signs Vital Signs: Last Vital Signs Temp Pulse 88 03/06/21 12:45 Resp BP 97/63 03/06/21 12:45 Pulse Ox 89 L 03/06/21 12:45 Weight: 62.142 kg - Exam General: Alert, Oriented, Cooperative, Other (Thin, cachectic) HEENT: Conjunctiva Clear, EACs Clear, EOMI, Pupils Equal, Pupils Reactive, Scleral Icterus Neck: Supple, Trachea Midline, Full Range of Motion Lungs: Clear to Auscultation, Normal Respiratory Effort Cardiovascular: Regular Rate, Regular Rhythm, Normal S1, Normal S2 GI/Abdominal Exam: Normal Bowel Sounds, Soft, Non-Tender, No Organomegaly, No Distention Extremities: Normal Inspection, Normal Range of Motion, No Pedal Edema Skin: Warm, Dry, Intact, Other (Jaundice) Neurological: Reflexes Equal Bilateral, Strength Equal Bilateral, Normal Speech, Sensation Intact Neuro Extensive - Mental Status: Alert, Other (Orientation to person and place) Psychiatric: Normal Affect, Normal Mood - Patient Data Lab Results Last 24 hrs: Laboratory Results - last 24 hr 03/06/21 03/06/21 Range/Units 13:29 13:29 WBC 0.59 L* (3.98-10.04) K/mm3 RBC 2.58 L (3.98-5.22) M/mm3 Hgb 7.3 L* (11.2-15.7) gm/dl Hct 22.8 L (34.1-44.9) % MCV 88.4 (79.4-94.8) fl MCH 28.3 (25.6-32.2) pg MCHC 32.0 L (32.2-35.5) g/dl RDW Std Deviation 41.4 (36.4-46.3) fL Plt Count 14 L* (182-369) K/mm3 MPV TNP Neut % (Auto) 42.4 (34.0-71.1) % Lymph % (Auto) 22.0 (19.3-51.7) % [place] % (Auto) 15.3 H (4.7-12.5) % Eos % (Auto) 1.7 (0.7-5.8) Baso % (Auto) 1.7 H (0.1-1.2) % Neut # (Auto) 0.25 L (1.56-6.13) K/mm3 Lymph # (Auto) 0.13 L (1.18-3.74) K/mm3 [place] # (Auto) 0.09 L (0.24-0.36) K/mm3 Eos # (Auto) 0.01 L (0.04-0.36) K/mm3 Baso # (Auto) 0.01 (0.01-0.08) K/mm3 Manual Slide Review Abnormal smear Sodium 135 L (136-145) mEq/L Potassium 3.8 (3.5-5.1) mEq/L Chloride 99 (98-107) mEq/L Carbon Dioxide 25 (21-32) mEq/L Anion Gap 14.8 (5-15) BUN 54 H D (7-18) mg/dL Creatinine 1.6 H (0.55-1.02) mg/dL Est Cr Clr Drug Dosing 23.58 mL/min Estimated GFR (MDRD) 31 (>60) mL/min BUN/Creatinine Ratio 33.8 H (14-18) Glucose 136 H (70-99) mg/dL Calcium 7.9 L (8.5-10.1) mg/dL Total Bilirubin 1.3 H (0.2-1.0) mg/dL AST 52 H (15-37) U/L ALT 81 H (14-59) U/L Alkaline Phosphatase 76 (46-116) U/L Total Protein 6.0 L (6.4-8.2) g/dl Albumin 2.1 L (3.4-5.0) g/dl Globulin 3.9 gm/dL Albumin/Globulin Ratio 0.5 L (1-2) Result Diagrams: 03/06/21 13:29 03/06/21 13:29 Sepsis Event Note - Focused Exam Vital Signs: Vital Signs Pulse BP Pulse Ox 03/06/21 12:45 88 97/63 89 L Problem List Initiated/Reviewed/Updated: Yes Orders Last 24hrs: Active Orders 24 hr Category Date Time Status Patient Status [ADT] Routine ADT 03/06/21 15:26 Active Intake and Output [RC] QSHIFT Care 03/06/21 15:27 Active Oxygen Therapy [RC] PRN Care 03/06/21 15:26 Active VTE/DVT Education [RC] PER UNIT ROUTINE Care 03/06/21 15:26 Active Vital Signs [RC] Q4H Care 03/06/21 15:26 Active Consult to Case Management/Forensic Pathologist [CONS] Cons 03/06/21 15:26 Active Routine Regular Diet [DIET] Diet 03/06/21 Dinner Active COVID-19/FLU A+B [MOLEC] Stat Lab 03/06/21 16:06 Received Acetaminophen [TylenoL] Med 03/06/21 15:26 Active 650 mg PO Q6H PRN Morphine Med 03/06/21 15:26 Active 2 mg IVPUSH Q4H PRN Promethazine [Phenergan] 12.5 mg Med 03/06/21 15:26 Active Sodium Chloride 0.9% [Normal Saline] 50 ml IV Q6H Resuscitation Status Routine Resus Stat 03/06/21 15:26 Ordered Medication Orders Acetaminophen (Acetaminophen 325 Mg Tab) 650 mg PO Q6H PRN PRN Reason: Pain (Mild 1-3)/fever Promethazine HCl 12.5 mg/ (Sodium Chloride) 50.5 mls @ 100 mls/hr IV Q6H PRN PRN Reason: Nausea/Vomiting Morphine Sulfate (Morphine 2 Mg/Ml Syringe) 2 mg IVPUSH Q4H PRN PRN Reason: Pain (severe 7-10) Stop: 03/07/21 15:28 Assessment/Plan Comment:: Patient is a 89-year-old female with a history of myelodysplastic syndrome who was referred by for for hospice care placement. Assessment: 1. Acute hypoxic respiratory failure SpO2 89 on RM in the ER. 2. Myelodysplastic syndrome 3. Pancytopenia WBC 0.59, RBC 2.58 and plts 14 in the ER. 4. DHEERAJ or DHEERAJ on CKD, creatinine 1.6 in the ER. It was 1.0 on 12/15/2020 5. Hyperbilirubinemia, 1.3 in the ER 6. Elevation of liver enzymes Plan: Met family including , son, daughter and two granddaughters. I explained her condition and treatment options to them. They all agreed the plan below: 1. No transfusion 2. No Labs 3. No imagine tests 4. No IVF 5. oxygen as needed. 6. pain meds, meds for nausea/vomiting, anxiety, secretion and other meds related to comfort care. No meds which are not related to comfort care. They fully understood that pain med can suppress her respiration. 7. 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
[2021-03-06 16:58] LABS: CORONAVIRUS COVID-19 NAA NEGATIVE (NEGATIVE)
[2021-03-06] MEDS ORDERED: Ondansetron 4 MG/2 ML SDV IVPUSH PRN (18:09)
[2021-03-06] MEDS ORDERED: LORazepam 2 MG/ML SDV IVPUSH PRN (18:11)
[2021-03-06] MEDS: Scopolamine 1.5 MG Transdermal Patch TRDERM SCH (18:37)
--- NOTE | 2021-03-07 07:59 | PCM.PN ---
- General Info Date of Service: 03/07/21 Admission Dx/Problem (Free Text): Admission Diagnosis/Problem Admission Diagnosis/Problem MDS/MPN (myelodysplastic/myeloproliferative neoplasms) Functional Status: Reports: Pain Controlled, Tolerating Diet, Urinating. Denies: Ambulating, New Symptoms - Review of Systems General: Reports: Weakness, Fatigue, Malaise. Denies: Fever, Chills HEENT: Reports: No Symptoms. Denies: Sore Throat Pulmonary: Reports: No Symptoms. Denies: Shortness of Breath, Cough Cardiovascular: Reports: No Symptoms. Denies: Chest Pain, Dyspnea on Exertion Gastrointestinal: Reports: No Symptoms. Denies: Abdominal Pain, Constipation, Diarrhea, Nausea, Vomiting Genitourinary: Reports: No Symptoms. Denies: Pain Musculoskeletal: Reports: No Symptoms Skin: Reports: No Symptoms, Jaundice. Denies: Cyanosis, Other Neurological: Reports: Confusion, Difficulty Walking, Weakness, Gait Disturbance. Denies: Dizziness, Headache, Numbness, Pre-Existing Deficit, Seizure, Syncope, Tingling Psychiatric: Reports: No Symptoms - Patient Data Vitals - Most Recent: Last Vital Signs Temp 98.4 F 03/07/21 02:55 Pulse 89 03/07/21 02:55 Resp 19 03/07/21 02:55 BP 110/50 L 03/07/21 02:55 Pulse Ox 91 L 03/07/21 02:55 Weight - Most Recent: 127 lb 12.8 oz I&O - Last 24 Hours: Intake & Output 03/06/21 03/07/21 03/07/21 22:59 06:59 14:59 Intake Total 200 Output Total 325 Balance -125 Lab Results Last 24 Hours: Laboratory Results - last 24 hr 03/06/21 03/06/21 03/06/21 Range/Units 13:29 13:29 16:06 WBC 0.59 L* (3.98-10.04) K/mm3 RBC 2.58 L (3.98-5.22) M/mm3 Hgb 7.3 L* (11.2-15.7) gm/dl Hct 22.8 L (34.1-44.9) % MCV 88.4 (79.4-94.8) fl MCH 28.3 (25.6-32.2) pg MCHC 32.0 L (32.2-35.5) g/dl RDW Std Deviation 41.4 (36.4-46.3) fL Plt Count 14 L* (182-369) K/mm3 MPV TNP Neut % (Auto) 42.4 (34.0-71.1) % Lymph % (Auto) 22.0 (19.3-51.7) % [place] % (Auto) 15.3 H (4.7-12.5) % Eos % (Auto) 1.7 (0.7-5.8) Baso % (Auto) 1.7 H (0.1-1.2) % Neut # (Auto) 0.25 L (1.56-6.13) K/mm3 Lymph # (Auto) 0.13 L (1.18-3.74) K/mm3 [place] # (Auto) 0.09 L (0.24-0.36) K/mm3 Eos # (Auto) 0.01 L (0.04-0.36) K/mm3 Baso # (Auto) 0.01 (0.01-0.08) K/mm3 Manual Slide Review Abnormal smear Sodium 135 L (136-145) mEq/L Potassium 3.8 (3.5-5.1) mEq/L Chloride 99 (98-107) mEq/L Carbon Dioxide 25 (21-32) mEq/L Anion Gap 14.8 (5-15) BUN 54 H D (7-18) mg/dL Creatinine 1.6 H (0.55-1.02) mg/dL Est Cr Clr Drug Dosing 23.58 mL/min Estimated GFR (MDRD) 31 (>60) mL/min BUN/Creatinine Ratio 33.8 H (14-18) Glucose 136 H (70-99) mg/dL Calcium 7.9 L (8.5-10.1) mg/dL Total Bilirubin 1.3 H (0.2-1.0) mg/dL AST 52 H (15-37) U/L ALT 81 H (14-59) U/L Alkaline Phosphatase 76 (46-116) U/L Total Protein 6.0 L (6.4-8.2) g/dl Albumin 2.1 L (3.4-5.0) g/dl Globulin 3.9 gm/dL Albumin/Globulin Ratio 0.5 L (1-2) Influenza Type A RNA Negative (NEGATIVE) Influenza Type B RNA Negative (NEGATIVE) SARS-CoV-2 RNA (REGULO) Negative (NEGATIVE) Med Orders - Current: Current Medications Acetaminophen (Acetaminophen 325 Mg Tab) 650 mg PO Q6H PRN PRN Reason: Pain (Mild 1-3)/fever Lorazepam (Lorazepam 2 Mg/Ml Sdv) 0.5 mg IVPUSH Q4H PRN PRN Reason: Anxiety Miscellaneous Information (Remove Patch) 1 ea TRDERM Q72H [facility] Morphine Sulfate (Morphine 2 Mg/Ml Syringe) 2 mg IVPUSH Q2H PRN PRN Reason: Pain Ondansetron HCl (Ondansetron 4 Mg/2 Ml Sdv) 4 mg IVPUSH Q4H PRN PRN Reason: Nausea/Vomiting Scopolamine (Scopolamine 1.5 Mg Transdermal Patch) 1.5 mg TRDERM Q72H [facility] Last Admin: 03/06/21 18:37 Dose: 1.5 mg Documented by: Discontinued Medications Promethazine HCl 12.5 mg/ (Sodium Chloride) 50.5 mls @ 100 mls/hr IV Q6H PRN PRN Reason: Nausea/Vomiting Morphine Sulfate (Morphine 2 Mg/Ml Syringe) 2 mg IVPUSH Q4H PRN PRN Reason: Pain (severe 7-10) Stop: 03/07/21 15:28 - Exam Quality Assessment: Central Line/PICC (Port in chest ), Urine Catheter (comfort care). No: DVT Prophylaxis (comfort care ) Central Line Total Time: 0Days 14Hours Urinary Catheter Total Time: 0Days 5Hours General: Alert, Oriented, Cooperative, No Acute Distress HEENT: Pupils Equal, Pupils Reactive, Mucous Membr. Moist/[place], Scleral Icterus Neck: Supple, Trachea Midline Lungs: Normal Respiratory Effort, Decreased Breath Sounds Cardiovascular: Regular Rate, Regular Rhythm GI/Abdominal Exam: Normal Bowel Sounds, Soft, Non-Tender, No Distention (Female) Exam: Deferred Extremities: Normal Inspection, Normal Range of Motion, Non-Tender, No Pedal Edema, Normal Capillary Refill Skin: Warm, Dry, Intact, Other (Jaundiced) Neurological: No New Focal Deficit Psy/Mental Status: Alert - Patient Data Lab Results Last 24 hrs: Laboratory Results - last 24 hr 03/06/21 03/06/21 03/06/21 Range/Units 13:29 13:29 16:06 WBC 0.59 L* (3.98-10.04) K/mm3 RBC 2.58 L (3.98-5.22) M/mm3 Hgb 7.3 L* (11.2-15.7) gm/dl Hct 22.8 L (34.1-44.9) % MCV 88.4 (79.4-94.8) fl MCH 28.3 (25.6-32.2) pg MCHC 32.0 L (32.2-35.5) g/dl RDW Std Deviation 41.4 (36.4-46.3) fL Plt Count 14 L* (182-369) K/mm3 MPV TNP Neut % (Auto) 42.4 (34.0-71.1) % Lymph % (Auto) 22.0 (19.3-51.7) % [place] % (Auto) 15.3 H (4.7-12.5) % Eos % (Auto) 1.7 (0.7-5.8) Baso % (Auto) 1.7 H (0.1-1.2) % Neut # (Auto) 0.25 L (1.56-6.13) K/mm3 Lymph # (Auto) 0.13 L (1.18-3.74) K/mm3 [place] # (Auto) 0.09 L (0.24-0.36) K/mm3 Eos # (Auto) 0.01 L (0.04-0.36) K/mm3 Baso # (Auto) 0.01 (0.01-0.08) K/mm3 Manual Slide Review Abnormal smear Sodium 135 L (136-145) mEq/L Potassium 3.8 (3.5-5.1) mEq/L Chloride 99 (98-107) mEq/L Carbon Dioxide 25 (21-32) mEq/L Anion Gap 14.8 (5-15) BUN 54 H D (7-18) mg/dL Creatinine 1.6 H (0.55-1.02) mg/dL Est Cr Clr Drug Dosing 23.58 mL/min Estimated GFR (MDRD) 31 (>60) mL/min BUN/Creatinine Ratio 33.8 H (14-18) Glucose 136 H (70-99) mg/dL Calcium 7.9 L (8.5-10.1) mg/dL Total Bilirubin 1.3 H (0.2-1.0) mg/dL AST 52 H (15-37) U/L ALT 81 H (14-59) U/L Alkaline Phosphatase 76 (46-116) U/L Total Protein 6.0 L (6.4-8.2) g/dl Albumin 2.1 L (3.4-5.0) g/dl Globulin 3.9 gm/dL Albumin/Globulin Ratio 0.5 L (1-2) Influenza Type A RNA Negative (NEGATIVE) Influenza Type B RNA Negative (NEGATIVE) SARS-CoV-2 RNA (REGULO) Negative (NEGATIVE) Result Diagrams: 03/06/21 13:29 03/06/21 13:29 Sepsis Event Note - Evaluation Sepsis Screening Result: No Definite Risk - Focused Exam Vital Signs: Vital Signs Temp Temp Pulse Pulse Resp BP BP 03/07/21 02:55 98.4 F 89 19 110/50 L 03/07/21 00:28 98.8 F 92 16 102/56 L 03/06/21 20:20 97.9 F 88 16 107/51 L Pulse Ox 03/07/21 02:55 91 L 03/07/21 00:28 95 03/06/21 20:20 92 L - Problem List & Annotations (1) End of life care SNOMED Code(s): 064853628, 194673449 Code(s): Z51.5 - ENCOUNTER FOR PALLIATIVE CARE Status: Acute Priority: High Current Visit: Yes (2) Acute hypoxemic respiratory failure SNOMED Code(s): 865338349 Code(s): J96.01 - ACUTE RESPIRATORY FAILURE WITH HYPOXIA Status: Acute Priority: High Current Visit: Yes (3) Myelodysplasia (myelodysplastic syndrome) SNOMED Code(s): 281599206 Code(s): D46.9 - MYELODYSPLASTIC SYNDROME, UNSPECIFIED Status: Chronic Priority: High Current Visit: Yes (4) DHEERAJ (acute kidney injury) SNOMED Code(s): 84715659, 51459511 Code(s): N17.9 - ACUTE KIDNEY FAILURE, UNSPECIFIED Status: Acute Priority: Medium Current Visit: Yes (5) Transaminitis SNOMED Code(s): 003366764, 966177789 Code(s): R74.01 - ELEVATION OF LEVELS OF LIVER TRANSAMINASE LEVELS Status: Chronic Priority: High Current Visit: Yes (6) Hyperbilirubinemia SNOMED Code(s): 17931896 Code(s): E80.6 - OTHER DISORDERS OF BILIRUBIN METABOLISM Status: Chronic Priority: High Current Visit: Yes (7) Pancytopenia SNOMED Code(s): 651130464 Code(s): D61.818 - OTHER PANCYTOPENIA Status: Chronic Priority: High Current Visit: Yes (8) Hyponatremia SNOMED Code(s): 55558271 Code(s): E87.1 - HYPO-OSMOLALITY AND HYPONATREMIA Status: Chronic Priority: High Current Visit: Yes (9) GERD (gastroesophageal reflux disease) SNOMED Code(s): 846014601 Code(s): K21.9 - GASTRO-ESOPHAGEAL REFLUX DISEASE WITHOUT ESOPHAGITIS Status: Chronic Priority: Low Current Visit: No Qualifiers: Esophagitis presence: esophagitis presence not specified Qualified Code(s): K21.9 - Gastro-esophageal reflux disease without esophagitis (10) IBD (inflammatory bowel disease) SNOMED Code(s): 33012419 Code(s): K52.9 - NONINFECTIVE GASTROENTERITIS AND COLITIS, UNSPECIFIED Status: Chronic Priority: Low Current Visit: No (11) Ulcerative colitis SNOMED Code(s): 44757131 Code(s): K51.90 - ULCERATIVE COLITIS, UNSPECIFIED, WITHOUT COMPLICATIONS Status: Chronic Priority: Low Current Visit: No Qualifiers: Ulcerative colitis location: unspecified ulcerative colitis location Digestive disease complication type: unspecified complication Qualified Code(s): K51.919 - Ulcerative colitis, unspecified with unspecified complications - Problem List Review Problem List Initiated/Reviewed/Updated: Yes - Assessment Assessment:: Day of admission: 03/06/2021 Assessment: 1. Acute hypoxic respiratory failure SpO2 89 on RM in the ER. 2. Myelodysplastic syndrome 3. Pancytopenia WBC 0.59, RBC 2.58 and plts 14 in the ER. 4. DHEERAJ or DHEERAJ on CKD, creatinine 1.6 in the ER. It was 1.0 on 12/15/2020 5. Hyperbilirubinemia, 1.3 in the ER 6. Elevation of liver enzymes Plan: Met family including , son, daughter and two granddaughters. I explained her condition and treatment options to them. They all agreed the plan below: 1. No transfusion 2. No Labs 3. No imagine tests 4. No IVF 5. oxygen as needed. 6. pain meds, meds for nausea/vomiting, anxiety, secretion and other meds related to comfort care. No meds which are not related to comfort care. They fully understood that pain med can suppress her respiration. 7. DNR/DNI senior facilities manager/social worker psychiatric consult As needed Ativan for anxiety 03/07/2021 Patient admitted for comfort care. Overall she is doing okay. No current pain. She does have a port in her chest and we will be using this for IV medications if pain arises. Because of this we will start her on TKO NS to keep the port accessible. No labs drawn today. Patient pending placement. We will continue comfort care as noted. - Plan Plan:: End of life care * No transfusions, labs, imaging, IV fluids other than to keep port patent * Oxygen as needed to keep saturations greater than 90% * As needed Ativan for anxiety * As needed morphine for pain * Scopolamine patch for secretions * CM/SW for placement * Spiritual care consultation * Discontinue home meds * Tylenol for pain/fever * Garcia catheter for comfort care * Vital signs every shift Inactive: Acute hypoxemic respiratory failure Myelodysplasia (myelodysplastic syndrome) DHEERAJ (acute kidney injury) Transaminitis Hyperbilirubinemia Pancytopenia Hyponatremia GERD (gastroesophageal reflux disease) IBD (inflammatory bowel disease) Ulcerative colitis Code status: DNR/DNI/Comfort care Oncology: Suha Ochoa NP DVT Prophylaxis: Not indicated - Comfort cares Social: Pending placement Disposition: Patient admitted and placed on comfort cares after discussion with family. Discharge pending placement.
[2021-03-07] MEDS ORDERED: Lactated Ringers 1,000 ML IV SCH (11:00)
[2021-03-07] MEDS: Morphine 2 MG/ML SYRINGE IVPUSH PRN ×3 (12:11→22:23)
[2021-03-07] MEDS ORDERED: Atropine 1% Ophth Soln 5 ML BOTTLE SL PRN (13:43)
[2021-03-08] MEDS: Morphine 2 MG/ML SYRINGE IVPUSH PRN (02:26)
--- NOTE | 2021-03-08 06:44 | PCM.PN ---
- General Info Date of Service: 03/08/21 Admission Dx/Problem (Free Text): Admission Diagnosis/Problem Admission Diagnosis/Problem MDS/MPN (myelodysplastic/myeloproliferative neoplasms) Functional Status: Reports: Pain Controlled, Urinating. Denies: Tolerating Diet (minimal intake ), Ambulating, New Symptoms - Review of Systems Systems Review Comment:: Unable to obtain ROS as patient is very confused. Her speech is very garbled does not make any sense. Nursing reports patient has been very weak and having difficulty getting out of bed. - Patient Data Vitals - Most Recent: Last Vital Signs Temp 98.1 F 03/07/21 22:36 Pulse 108 H 03/07/21 22:36 Resp 16 03/07/21 22:30 BP 85/37 L 03/07/21 22:30 Pulse Ox 91 L 03/07/21 22:36 Weight - Most Recent: 127 lb 12.8 oz I&O - Last 24 Hours: Intake & Output 03/07/21 03/07/21 03/08/21 14:59 22:59 06:59 Intake Total 0 470 133 Output Total 450 100 Balance 0 20 33 Med Orders - Current: Current Medications Acetaminophen (Acetaminophen 325 Mg Tab) 650 mg PO Q6H PRN PRN Reason: Pain (Mild 1-3)/fever Atropine Sulfate (Atropine 1% Ophth Soln 5 Ml Bottle) 0 ml SL Q2H PRN PRN Reason: Excessive secretions Lactated Ringer's (Ringers, Lactated) 1,000 mls @ 10 mls/hr IV ASDIRECTED [facility] Last Admin: 03/07/21 12:14 Dose: 10 mls/hr Documented by: Lorazepam (Lorazepam 2 Mg/Ml Sdv) 0.5 mg IVPUSH Q4H PRN PRN Reason: Anxiety Last Admin: 03/08/21 02:49 Dose: 0.5 mg Documented by: Miscellaneous Information (Remove Patch) 1 ea TRDERM Q72H [facility] Morphine Sulfate (Morphine 2 Mg/Ml Syringe) 2 mg IVPUSH Q2H PRN PRN Reason: Pain Last Admin: 03/08/21 02:26 Dose: 2 mg Documented by: Ondansetron HCl (Ondansetron 4 Mg/2 Ml Sdv) 4 mg IVPUSH Q4H PRN PRN Reason: Nausea/Vomiting Scopolamine (Scopolamine 1.5 Mg Transdermal Patch) 1.5 mg TRDERM Q72H [facility] Last Admin: 03/06/21 18:37 Dose: 1.5 mg Documented by: Discontinued Medications Promethazine HCl 12.5 mg/ (Sodium Chloride) 50.5 mls @ 100 mls/hr IV Q6H PRN PRN Reason: Nausea/Vomiting Morphine Sulfate (Morphine 2 Mg/Ml Syringe) 2 mg IVPUSH Q4H PRN PRN Reason: Pain (severe 7-10) Stop: 03/07/21 15:28 - Exam Quality Assessment: Supplemental Oxygen, Urine Catheter (comfort care). No: Central Line/PICC (removing today), DVT Prophylaxis Central Line Total Time: 1Days 15Hours Urinary Catheter Total Time: 1Days 3Hours General: Alert, No Acute Distress. No: Oriented, Cooperative (very confused) HEENT: Pupils Equal, Pupils Reactive. No: Mucous Membr. Moist/[place] (dry) Neck: Supple, Trachea Midline Lungs: Normal Respiratory Effort, Decreased Breath Sounds Cardiovascular: Regular Rhythm, Tachycardia GI/Abdominal Exam: Normal Bowel Sounds, Soft, Non-Tender, No Distention (Female) Exam: Deferred Back Exam: Normal Inspection Extremities: Normal Inspection, Normal Range of Motion, Non-Tender, No Pedal Edema, Normal Capillary Refill Skin: Warm, Dry, Intact Neurological: No New Focal Deficit Psy/Mental Status: Alert - Patient Data Result Diagrams: 03/06/21 13:29 03/06/21 13:29 Sepsis Event Note - Evaluation Sepsis Screening Result: No Definite Risk - Focused Exam Vital Signs: Vital Signs Temp Pulse Resp BP Pulse Ox 03/07/21 22:36 98.1 F 108 H 91 L 03/07/21 22:30 91 16 85/37 L 88 L - Problem List & Annotations (1) End of life care SNOMED Code(s): 732837932, 640332502 Code(s): Z51.5 - ENCOUNTER FOR PALLIATIVE CARE Status: Acute Priority: High Current Visit: Yes (2) Acute hypoxemic respiratory failure SNOMED Code(s): 671423888 Code(s): J96.01 - ACUTE RESPIRATORY FAILURE WITH HYPOXIA Status: Acute Priority: High Current Visit: Yes (3) Myelodysplasia (myelodysplastic syndrome) SNOMED Code(s): 072232530 Code(s): D46.9 - MYELODYSPLASTIC SYNDROME, UNSPECIFIED Status: Chronic Priority: High Current Visit: Yes (4) DHEERAJ (acute kidney injury) SNOMED Code(s): 28479005, 66573447 Code(s): N17.9 - ACUTE KIDNEY FAILURE, UNSPECIFIED Status: Acute Priority: Medium Current Visit: Yes (5) Transaminitis SNOMED Code(s): 592784315, 309112252 Code(s): R74.01 - ELEVATION OF LEVELS OF LIVER TRANSAMINASE LEVELS Status: Chronic Priority: High Current Visit: Yes (6) Hyperbilirubinemia SNOMED Code(s): 50824542 Code(s): E80.6 - OTHER DISORDERS OF BILIRUBIN METABOLISM Status: Chronic Priority: High Current Visit: Yes (7) Pancytopenia SNOMED Code(s): 088912428 Code(s): D61.818 - OTHER PANCYTOPENIA Status: Chronic Priority: High Current Visit: Yes (8) Hyponatremia SNOMED Code(s): 84777868 Code(s): E87.1 - HYPO-OSMOLALITY AND HYPONATREMIA Status: Chronic Priority: High Current Visit: Yes (9) GERD (gastroesophageal reflux disease) SNOMED Code(s): 560667894 Code(s): K21.9 - GASTRO-ESOPHAGEAL REFLUX DISEASE WITHOUT ESOPHAGITIS Status: Chronic Priority: Low Current Visit: No Qualifiers: Esophagitis presence: esophagitis presence not specified Qualified Code(s): K21.9 - Gastro-esophageal reflux disease without esophagitis (10) IBD (inflammatory bowel disease) SNOMED Code(s): 38504771 Code(s): K52.9 - NONINFECTIVE GASTROENTERITIS AND COLITIS, UNSPECIFIED Status: Chronic Priority: Low Current Visit: No (11) Ulcerative colitis SNOMED Code(s): 80963923 Code(s): K51.90 - ULCERATIVE COLITIS, UNSPECIFIED, WITHOUT COMPLICATIONS Status: Chronic Priority: Low Current Visit: No Qualifiers: Ulcerative colitis location: unspecified ulcerative colitis location Digestive disease complication type: unspecified complication Qualified Code(s): K51.919 - Ulcerative colitis, unspecified with unspecified complications (12) Garcia catheter in place SNOMED Code(s): 748431959 Code(s): Z97.8 - PRESENCE OF OTHER SPECIFIED DEVICES Status: Acute Priority: Low Current Visit: Yes - Problem List Review Problem List Initiated/Reviewed/Updated: Yes - My Orders Last 24 Hours: My Active Orders 03/07/21 08:12 Resuscitation Status Routine 03/07/21 08:13 Nurse Communication: Isolation [RC] ASDIRECTED Isolation [COMM] Stat 03/07/21 08:14 Consult to Hospice [CONS] Routine 03/07/21 10:47 Consult to Spiritual Care [CONS] Routine 03/07/21 11:00 Lactated Ringers [Ringers, Lactated] 1,000 ml IV ASDIRECTED 03/07/21 13:43 Atropine 1% [Atropine 1% Ophth Soln] See Dose Instructions SL Q2H PRN 03/07/21 14:37 Renew/Continue Urinary Catheter [OM.PC] Routine - Assessment Assessment:: Day of admission: 03/06/2021 Assessment: 1. Acute hypoxic respiratory failure SpO2 89 on RM in the ER. 2. Myelodysplastic syndrome 3. Pancytopenia WBC 0.59, RBC 2.58 and plts 14 in the ER. 4. DHEERAJ or DHEERAJ on CKD, creatinine 1.6 in the ER. It was 1.0 on 12/15/2020 5. Hyperbilirubinemia, 1.3 in the ER 6. Elevation of liver enzymes Plan: Met family including , son, daughter and two granddaughters. I explained her condition and treatment options to them. They all agreed the plan below: 1. No transfusion 2. No Labs 3. No imagine tests 4. No IVF 5. oxygen as needed. 6. pain meds, meds for nausea/vomiting, anxiety, secretion and other meds related to comfort care. No meds which are not related to comfort care. They fully understood that pain med can suppress her respiration. 7. DNR/DNI software release manager/secondary social studies teacher consult As needed [facility] Patient admitted for comfort care. Overall she is doing okay. No current pain. She does have a port in her chest and we will be using this for IV medications if pain arises. Because of this we will start her on TKO NS to keep the port accessible. No labs drawn today. Patient pending placement. We will continue comfort care as noted. 03/08/2021 80-year-old female with a history of MDS admitted for comfort care. She denies any current pain. She is very confused today. She is very weak and nursing reports she is having difficulty getting out of bed. We will switch her medications to oral as she is still able to have some crackers per nursing. These include morphine and Ativan as needed for pain and anxiety respectively. Discussed removing Garcia catheter however nursing is concerned as patient is very weak and a high fall risk. Patient is comfort care and we will leave the Garcia catheter in place at this time. Social work continues to work on placement. No labs were drawn today. Unknown length of stay pending placement. - Plan Plan:: End of life care Garcia catheter in place * No transfusions, labs, imaging, IV fluids * Oxygen as needed to keep saturations greater than 90% * As needed Ativan for anxiety * As needed morphine for pain * Scopolamine patch for secretions * CM/SW for placement * Spiritual care consultation * Discontinue home meds * Tylenol for pain/fever * Contiue Garcia catheter for comfort cares * Vital signs every shift Inactive: Acute hypoxemic respiratory failure Myelodysplasia (myelodysplastic syndrome) DHEERAJ (acute kidney injury) Transaminitis Hyperbilirubinemia Pancytopenia Hyponatremia GERD (gastroesophageal reflux disease) IBD (inflammatory bowel disease) Ulcerative colitis Code status: DNR/DNI/Comfort care Oncology: Suha Ochoa NP DVT Prophylaxis: Not indicated - Comfort cares Social: Pending placement Disposition: Patient admitted and placed on comfort cares after discussion with family. Discharge pending placement.
[2021-03-08] MEDS ORDERED: LORazepam 0.5 MG Tab PO PRN (07:34)
[2021-03-08] MEDS ORDERED: Morphine 10 MG/0.5 ML Oral Syringe PO PRN (07:35)
[2021-03-08] MEDS ORDERED: LORazepam 2 MG/ML SDV IVPUSH PRN (09:35)
[2021-03-08] MEDS ORDERED: Morphine 4 MG/ML VIAL IVPUSH PRN (09:36)
[2021-03-08] MEDS ORDERED: Sodium Chloride 0.9% 1,000 ML IV SCH (09:45)
[2021-03-08] MEDS ORDERED: Morphine 4 MG/ML Syringe IVPUSH PRN (09:45)
[2021-03-08] MEDS ORDERED: Ondansetron 4 MG Tab.DIS PO PRN (11:09)
[2021-03-08] MEDS ORDERED: Acetaminophen 650 MG Supp RECTAL PRN (11:10)
[2021-03-08] MEDS: LORazepam 1 MG Tab PRN ×2 (16:08→23:57)
[2021-03-08] MEDS: Morphine 10 MG/0.5 ML Oral Syringe PO PRN (22:55)
[2021-03-09] MEDS: Morphine 10 MG/0.5 ML Oral Syringe PO PRN ×2 (06:09→23:34)
--- NOTE | 2021-03-09 08:15 | PCM.PN ---
<Dao Crowe - Last Filed: 03/09/21 10:36> - General Info Date of Service: 03/09/21 Admission Dx/Problem (Free Text): Admission Diagnosis/Problem Admission Diagnosis/Problem MDS/MPN (myelodysplastic/myeloproliferative neoplasms) Functional Status: Reports: Pain Controlled, Ambulating, Urinating. Denies: Tolerating Diet, New Symptoms - Review of Systems Systems Review Comment:: Unable to obtain ROS due to patient's mental status. Family is at bedside and does report patient appears comfortable. - Patient Data Vitals - Most Recent: Last Vital Signs Temp 97.3 F 03/08/21 21:00 Pulse 88 03/08/21 21:00 Resp 18 03/08/21 21:00 BP 88/55 L 03/08/21 21:00 Pulse Ox 93 L 03/08/21 21:00 Weight - Most Recent: 57.969 kg I&O - Last 24 Hours: Intake & Output 03/08/21 03/09/21 03/09/21 22:59 06:59 14:59 Intake Total 50 60 Output Total 350 Balance 50 -290 Med Orders - Current: Current Medications Acetaminophen (Acetaminophen 325 Mg Tab) 650 mg PO Q6H PRN PRN Reason: Pain (Mild 1-3)/fever Acetaminophen (Acetaminophen 650 Mg Supp) 650 mg RECTAL Q6H PRN PRN Reason: Pain/Fever Atropine Sulfate (Atropine 1% Ophth Soln 5 Ml Bottle) 0 ml SL Q2H PRN PRN Reason: Excessive secretions Lorazepam (Lorazepam 1 Mg Tab) 1 mg .XX Q4H PRN PRN Reason: ANXIETY/RESTLESSNESS Last Admin: 03/08/21 23:57 Dose: 1 mg Documented by: Miscellaneous Information (Remove Patch) 1 ea TRDERM Q72H [facility] Morphine Sulfate (Morphine 10 Mg/0.5 Ml Oral Syringe) 5 mg PO Q2H PRN PRN Reason: Pain/comfort care Last Admin: 03/09/21 06:09 Dose: 5 mg Documented by: Ondansetron HCl (Ondansetron 4 Mg Tab.Dis) 4 mg PO Q6H PRN PRN Reason: Nausea/Vomiting Scopolamine (Scopolamine 1.5 Mg Transdermal Patch) 1.5 mg TRDERM Q72H [facility] Last Admin: 03/06/21 18:37 Dose: 1.5 mg Documented by: Discontinued Medications Heparin Sodium (Porcine) (Heparin Sodium 100 Units/Ml 5 Ml Syringe) 500 units FLUSH ONETIME ONE Stop: 03/08/21 18:17 Last Admin: 03/08/21 18:38 Dose: 500 units Documented by: Promethazine HCl 12.5 mg/ (Sodium Chloride) 50.5 mls @ 100 mls/hr IV Q6H PRN PRN Reason: Nausea/Vomiting Lactated Ringer's (Ringers, Lactated) 1,000 mls @ 10 mls/hr IV ASDIRECTED [facility] Last Admin: 03/07/21 12:14 Dose: 10 mls/hr Documented by: Sodium Chloride (Normal Saline) 1,000 mls @ 10 mls/hr IV ASDIRECTED [facility] Stop: 03/12/21 09:34 Lorazepam (Lorazepam 2 Mg/Ml Sdv) 0.5 mg IVPUSH Q4H PRN PRN Reason: Anxiety Last Admin: 03/08/21 02:49 Dose: 0.5 mg Documented by: Lorazepam (Lorazepam 0.5 Mg Tab) 0.5 mg PO Q6H PRN PRN Reason: Anxiety Lorazepam (Lorazepam 2 Mg/Ml Sdv) 2 mg IVPUSH Q6H PRN PRN Reason: Anxeity Morphine Sulfate (Morphine 2 Mg/Ml Syringe) 2 mg IVPUSH Q4H PRN PRN Reason: Pain (severe 7-10) Stop: 03/07/21 15:28 Morphine Sulfate (Morphine 2 Mg/Ml Syringe) 2 mg IVPUSH Q2H PRN PRN Reason: Pain Last Admin: 03/08/21 02:26 Dose: 2 mg Documented by: Morphine Sulfate (Morphine 10 Mg/0.5 Ml Oral Syringe) 5 mg PO Q2H PRN PRN Reason: Pain Morphine Sulfate (Morphine 4 Mg/Ml Vial) 4 mg IVPUSH Q2H PRN PRN Reason: Pain Morphine Sulfate (Morphine 4 Mg/Ml Syringe) 4 mg IVPUSH Q2H PRN PRN Reason: pain Ondansetron HCl (Ondansetron 4 Mg/2 Ml Sdv) 4 mg IVPUSH Q4H PRN PRN Reason: Nausea/Vomiting - Exam Quality Assessment: Urine Catheter. No: Supplemental Oxygen, DVT Prophylaxis (Comfort care) Central Line Total Time: 2Days 5Hours Urinary Catheter Total Time: 2Days 2Hours General: Alert. No: Oriented, No Acute Distress HEENT: Pupils Equal, Pupils Reactive. No: Mucous Membr. Moist/[place] (URI) Neck: Supple Lungs: Normal Respiratory Effort, Decreased Breath Sounds. No: Rhonchi, Wheezing Cardiovascular: Regular Rate, Regular Rhythm GI/Abdominal Exam: Normal Bowel Sounds, Soft, Non-Tender, No Distention (Female) Exam: Deferred Extremities: Normal Inspection, Normal Range of Motion, Non-Tender, No Pedal Edema, Normal Capillary Refill Skin: Dry, Intact, Cool Psy/Mental Status: Alert. No: Anxious - Patient Data Result Diagrams: 03/06/21 13:29 03/06/21 13:29 Sepsis Event Note - Evaluation Sepsis Screening Result: No Definite Risk - Focused Exam Vital Signs: Vital Signs Temp Pulse Resp BP Pulse Ox 03/08/21 21:00 97.3 F 88 18 88/55 L 93 L - Problem List & Annotations (1) End of life care SNOMED Code(s): 727227100, 850620947 Code(s): Z51.5 - ENCOUNTER FOR PALLIATIVE CARE Status: Acute Priority: High Current Visit: Yes (2) Acute hypoxemic respiratory failure SNOMED Code(s): 960761546 Code(s): J96.01 - ACUTE RESPIRATORY FAILURE WITH HYPOXIA Status: Acute Priority: High Current Visit: Yes (3) Myelodysplasia (myelodysplastic syndrome) SNOMED Code(s): 390118469 Code(s): D46.9 - MYELODYSPLASTIC SYNDROME, UNSPECIFIED Status: Chronic Priority: High Current Visit: Yes (4) DHEERAJ (acute kidney injury) SNOMED Code(s): 29550536, 89882137 Code(s): N17.9 - ACUTE KIDNEY FAILURE, UNSPECIFIED Status: Acute Priority: Medium Current Visit: Yes (5) Transaminitis SNOMED Code(s): 218311726, 900333899 Code(s): R74.01 - ELEVATION OF LEVELS OF LIVER TRANSAMINASE LEVELS Status: Chronic Priority: High Current Visit: Yes (6) Hyperbilirubinemia SNOMED Code(s): 75772018 Code(s): E80.6 - OTHER DISORDERS OF BILIRUBIN METABOLISM Status: Chronic Priority: High Current Visit: Yes (7) Pancytopenia SNOMED Code(s): 199336673 Code(s): D61.818 - OTHER PANCYTOPENIA Status: Chronic Priority: High Current Visit: Yes (8) Hyponatremia SNOMED Code(s): 77011981 Code(s): E87.1 - HYPO-OSMOLALITY AND HYPONATREMIA Status: Chronic Priority: High Current Visit: Yes (9) GERD (gastroesophageal reflux disease) SNOMED Code(s): 802107325 Code(s): K21.9 - GASTRO-ESOPHAGEAL REFLUX DISEASE WITHOUT ESOPHAGITIS Status: Chronic Priority: Low Current Visit: No Qualifiers: Esophagitis presence: esophagitis presence not specified Qualified Code(s): K21.9 - Gastro-esophageal reflux disease without esophagitis (10) IBD (inflammatory bowel disease) SNOMED Code(s): 95650831 Code(s): K52.9 - NONINFECTIVE GASTROENTERITIS AND COLITIS, UNSPECIFIED Status: Chronic Priority: Low Current Visit: No (11) Ulcerative colitis SNOMED Code(s): 45603303 Code(s): K51.90 - ULCERATIVE COLITIS, UNSPECIFIED, WITHOUT COMPLICATIONS Status: Chronic Priority: Low Current Visit: No Qualifiers: Ulcerative colitis location: unspecified ulcerative colitis location Digestive disease complication type: unspecified complication Qualified Code(s): K51.919 - Ulcerative colitis, unspecified with unspecified complications (12) Garcia catheter in place SNOMED Code(s): 020568955 Code(s): Z97.8 - PRESENCE OF OTHER SPECIFIED DEVICES Status: Acute Priority: Low Current Visit: Yes - Problem List Review Problem List Initiated/Reviewed/Updated: Yes - My Orders Last 24 Hours: My Active Orders 03/08/21 08:07 Renew/Continue Urinary Catheter [OM.PC] Routine 03/08/21 11:07 Morphine [Morphine 10 MG/0.5 ML Oral Syringe] 5 mg PO Q2H PRN 03/08/21 11:08 Implanted Port De-Access [RC] ASDIRECTED 03/08/21 11:09 Ondansetron [Zofran ODT] 4 mg PO Q6H PRN 03/08/21 11:10 Acetaminophen [Tylenol] 650 mg RECTAL Q6H PRN 03/08/21 11:13 LORazepam [Ativan] 1 mg .XX Q4H PRN 03/09/21 07:38 Renew/Continue Urinary Catheter [OM.PC] Routine - Assessment Assessment:: Day of admission: 03/06/2021 Assessment: 1. Acute hypoxic respiratory failure SpO2 89 on RM in the ER. 2. Myelodysplastic syndrome 3. Pancytopenia WBC 0.59, RBC 2.58 and plts 14 in the ER. 4. DHEERAJ or DHEERAJ on CKD, creatinine 1.6 in the ER. It was 1.0 on 12/15/2020 5. Hyperbilirubinemia, 1.3 in the ER 6. Elevation of liver enzymes Plan: Met family including , son, daughter and two granddaughters. I explained her condition and treatment options to them. They all agreed the plan below: 1. No transfusion 2. No Labs 3. No imagine tests 4. No IVF 5. oxygen as needed. 6. pain meds, meds for nausea/vomiting, anxiety, secretion and other meds related to comfort care. No meds which are not related to comfort care. They fully understood that pain med can suppress her respiration. 7. DNR/DNI manager quality/social welfare clerk consult As needed Ativan for anxiety 03/07/2021 Patient admitted for comfort care. Overall she is doing okay. No current pain. She does have a port in her chest and we will be using this for IV medications if pain arises. Because of this we will start her on TKO NS to keep the port accessible. No labs drawn today. Patient pending placement. We will continue comfort care as noted. 03/08/2021 80-year-old female with a history of MDS admitted for comfort care. She denies any current pain. She is very confused today. She is very weak and nursing reports she is having difficulty getting out of bed. We will switch her medications to oral as she is still able to have some crackers per nursing. These include morphine and Ativan as needed for pain and anxiety respectively. Discussed removing Garcia catheter however nursing is concerned as patient is very weak and a high fall risk. Patient is comfort care and we will leave the Garcia catheter in place at this time. Social work continues to work on placem ent. No labs were drawn today. Unknown length of stay pending placement. 03/09/2021 80-year-old female with a history of MDS admitted for comfort care. Patient is very confused but is alert. Responses garbled. Family is at bedside and does report patient appears comfortable. We will continue morphine and Ativan as needed. Garcia catheter remains in place with minimal output put. Port was deaccessed yesterday and we are giving the patient sublingual morphine and c rushed Ativan tablets. Oxygen was discontinued today. No acute concerns. No labs obtained. Unknown length of stay pending placement. - Plan Plan:: End of life care Garcia catheter in place * No transfusions, labs, imaging, IV fluids * Discontinue oxygen * As needed Ativan for anxiety * As needed morphine for pain * Scopolamine patch for secretions * CM/SW for placement * Spiritual care consultation * Discontinue home meds * Tylenol for pain/fever * Contiue Garcia catheter for comfort cares * Vital signs every shift Inactive: Acute hypoxemic respiratory failure Myelodysplasia (myelodysplastic syndrome) DHEERAJ (acute kidney injury) Transaminitis Hyperbilirubinemia Pancytopenia Hyponatremia GERD (gastroesophageal reflux disease) IBD (inflammatory bowel disease) Ulcerative colitis Code status: DNR/DNI/Comfort care Oncology: Suha Ochoa NP DVT Prophylaxis: Not indicated - Comfort cares Social: Pending placement Disposition: Patient admitted and placed on comfort cares after discussion with family. Discharge pending placement. <Ej Topete - Last Filed: 03/09/21 15:04> - Patient Data Vitals - Most Recent: Last Vital Signs Temp 36.3 C 03/08/21 21:00 Pulse 88 03/08/21 21:00 Resp 18 03/08/21 21:00 BP 88/55 L 03/08/21 21:00 Pulse Ox 93 L 03/08/21 21:00 I&O - Last 24 Hours: Intake & Output 03/09/21 03/09/21 03/09/21 06:59 14:59 22:59 Intake Total 60 Output Total 350 Balance -290 Med Orders - Current: Current Medications Acetaminophen (Acetaminophen 325 Mg Tab) 650 mg PO Q6H PRN PRN Reason: Pain (Mild 1-3)/fever Acetaminophen (Acetaminophen 650 Mg Supp) 650 mg RECTAL Q6H PRN PRN Reason: Pain/Fever Atropine Sulfate (Atropine 1% Ophth Soln 5 Ml Bottle) 0 ml SL Q2H PRN PRN Reason: Excessive secretions Lorazepam (Lorazepam 1 Mg Tab) 1 mg .XX Q4H PRN PRN Reason: ANXIETY/RESTLESSNESS Last Admin: 03/09/21 10:43 Dose: 1 mg Documented by: Miscellaneous Information (Remove Patch) 1 ea TRDERM Q72H [facility] Morphine Sulfate (Morphine 10 Mg/0.5 Ml Oral Syringe) 5 mg PO Q2H PRN PRN Reason: Pain/comfort care Last Admin: 03/09/21 06:09 Dose: 5 mg Documented by: Ondansetron HCl (Ondansetron 4 Mg Tab.Dis) 4 mg PO Q6H PRN PRN Reason: Nausea/Vomiting Scopolamine (Scopolamine 1.5 Mg Transdermal Patch) 1.5 mg TRDERM Q72H [facility] Last Admin: 03/06/21 18:37 Dose: 1.5 mg Documented by: Discontinued Medications Heparin Sodium (Porcine) (Heparin Sodium 100 Units/Ml 5 Ml Syringe) 500 units F LUSH ONETIME ONE Stop: 03/08/21 18:17 Last Admin: 03/08/21 18:38 Dose: 500 units Documented by: Promethazine HCl 12.5 mg/ (Sodium Chloride) 50.5 mls @ 100 mls/hr IV Q6H PRN PRN Reason: Nausea/Vomiting Lactated Ringer's (Ringers, Lactated) 1,000 mls @ 10 mls/hr IV ASDIRECTED [facility] Last Admin: 03/07/21 12:14 Dose: 10 mls/hr Documented by: Sodium Chloride (Normal Saline) 1,000 mls @ 10 mls/hr IV ASDIRECTED [facility] Stop: 03/12/21 09:34 Lorazepam (Lorazepam 2 Mg/Ml Sdv) 0.5 mg IVPUSH Q4H PRN PRN Reason: Anxiety Last Admin: 03/08/21 02:49 Dose: 0.5 mg Documented by: Lorazepam (Lorazepam 0.5 Mg Tab) 0.5 mg PO Q6H PRN PRN Reason: Anxiety Lorazepam (Lorazepam 2 Mg/Ml Sdv) 2 mg IVPUSH Q6H PRN PRN Reason: Anxeity Morphine Sulfate (Morphine 2 Mg/Ml Syringe) 2 mg IVPUSH Q4H PRN PRN Reason: Pain (severe 7-10) Stop: 03/07/21 15:28 Morphine Sulfate (Morphine 2 Mg/Ml Syringe) 2 mg IVPUSH Q2H PRN PRN Reason: Pain Last Admin: 03/08/21 02:26 Dose: 2 mg Documented by: Morphine Sulfate (Morphine 10 Mg/0.5 Ml Oral Syringe) 5 mg PO Q2H PRN PRN Reason: Pain Morphine Sulfate (Morphine 4 Mg/Ml Vial) 4 mg IVPUSH Q2H PRN PRN Reason: Pain Morphine Sulfate (Morphine 4 Mg/Ml Syringe) 4 mg IVPUSH Q2H PRN PRN Reason: pain Ondansetron HCl (Ondansetron 4 Mg/2 Ml Sdv) 4 mg IVPUSH Q4H PRN PRN Reason: Nausea/Vomiting - Patient Data Result Diagrams: 03/06/21 13:29 03/06/21 13:29 - Free Text/Narrative Note: I have seen and examined the patient independently of Dao Crowe PA-C, and have discussed the case with him. I have reviewed the orders and agree with the plan of care for this patient as outlined by him. Please see orders. Continue with comfort care. No further testing ordered.
[2021-03-09] MEDS: LORazepam 1 MG Tab PRN (10:43)
[2021-03-09] MEDS: Scopolamine 1.5 MG Transdermal Patch TRDERM SCH (18:34)
[2021-03-10] MEDS: Morphine 10 MG/0.5 ML Oral Syringe PO PRN ×3 (06:26→14:09)
--- NOTE | 2021-03-10 07:06 | PCM.PN ---
- General Info Date of Service: 03/10/21 Admission Dx/Problem (Free Text): Admission Diagnosis/Problem Admission Diagnosis/Problem MDS/MPN (myelodysplastic/myeloproliferative neoplasms) Subjective Update: The patient is a 80-year-old lady who was admitted to acute hospitalization due to myelodysplastic disorder and is currently under comfort measures. Hospice was not available. The patient is not responsive. Functional Status: Reports: Pain Controlled, New Symptoms - Review of Systems Systems Review Comment:: The patient is not responsive and review of systems not available. - Patient Data Vitals - Most Recent: Last Vital Signs Temp 36.7 C 03/09/21 19:08 Pulse 88 03/09/21 19:08 Resp 14 03/09/21 19:08 BP 94/51 L 03/09/21 19:08 Pulse Ox 95 03/09/21 19:08 Weight - Most Recent: 57.969 kg I&O - Last 24 Hours: Intake & Output 03/09/21 03/10/21 03/10/21 22:59 06:59 14:59 Output Total 400 175 Balance -400 -175 Med Orders - Current: Current Medications Acetaminophen (Acetaminophen 325 Mg Tab) 650 mg PO Q6H PRN PRN Reason: Pain (Mild 1-3)/fever Acetaminophen (Acetaminophen 650 Mg Supp) 650 mg RECTAL Q6H PRN PRN Reason: Pain/Fever Atropine Sulfate (Atropine 1% Ophth Soln 5 Ml Bottle) 0 ml SL Q2H PRN PRN Reason: Excessive secretions Lorazepam (Lorazepam 1 Mg Tab) 1 mg .XX Q4H PRN PRN Reason: ANXIETY/RESTLESSNESS Last Admin: 03/09/21 10:43 Dose: 1 mg Documented by: Miscellaneous Information (Remove Patch) 1 ea TRDERM Q72H [facility] Last Admin: 03/09/21 18:34 Dose: 1 ea Documented by: Morphine Sulfate (Morphine 10 Mg/0.5 Ml Oral Syringe) 5 mg PO Q2H PRN PRN Reason: Pain/comfort care Last Admin: 03/10/21 06:26 Dose: 5 mg Documented by: Ondansetron HCl (Ondansetron 4 Mg Tab.Dis) 4 mg PO Q6H PRN PRN Reason: Nausea/Vomiting Scopolamine (Scopolamine 1.5 Mg Transdermal Patch) 1.5 mg TRDERM Q72H [facility] Last Admin: 03/09/21 18:34 Dose: 1.5 mg Documented by: Discontinued Medications Heparin Sodium (Porcine) (Heparin Sodium 100 Units/Ml 5 Ml Syringe) 500 units FLUSH ONETIME ONE Stop: 03/08/21 18:17 Last Admin: 03/08/21 18:38 Dose: 500 units Documented by: Promethazine HCl 12.5 mg/ (Sodium Chloride) 50.5 mls @ 100 mls/hr IV Q6H PRN PRN Reason: Nausea/Vomiting Lactated Ringer's (Ringers, Lactated) 1,000 mls @ 10 mls/hr IV ASDIRECTED [facility] Last Admin: 03/07/21 12:14 Dose: 10 mls/hr Documented by: Sodium Chloride (Normal Saline) 1,000 mls @ 10 mls/hr IV ASDIRECTED [facility] Stop: 03/12/21 09:34 Lorazepam (Lorazepam 2 Mg/Ml Sdv) 0.5 mg IVPUSH Q4H PRN PRN Reason: Anxiety Last Admin: 03/08/21 02:49 Dose: 0.5 mg Documented by: Lorazepam (Lorazepam 0.5 Mg Tab) 0.5 mg PO Q6H PRN PRN Reason: Anxiety Lorazepam (Lorazepam 2 Mg/Ml Sdv) 2 mg IVPUSH Q6H PRN PRN Reason: Anxeity Morphine Sulfate (Morphine 2 Mg/Ml Syringe) 2 mg IVPUSH Q4H PRN PRN Reason: Pain (severe 7-10) Stop: 03/07/21 15:28 Morphine Sulfate (Morphine 2 Mg/Ml Syringe) 2 mg IVPUSH Q2H PRN PRN Reason: Pain Last Admin: 03/08/21 02:26 Dose: 2 mg Documented by: Morphine Sulfate (Morphine 10 Mg/0.5 Ml Oral Syringe) 5 mg PO Q2H PRN PRN Reason: Pain Morphine Sulfate (Morphine 4 Mg/Ml Vial) 4 mg IVPUSH Q2H PRN PRN Reason: Pain Morphine Sulfate (Morphine 4 Mg/Ml Syringe) 4 mg IVPUSH Q2H PRN PRN Reason: pain Ondansetron HCl (Ondansetron 4 Mg/2 Ml Sdv) 4 mg IVPUSH Q4H PRN PRN Reason: Nausea/Vomiting - Exam Quality Assessment: No: Supplemental Oxygen, DVT Prophylaxis (Due to comfort measures.) Central Line Total Time: 2Days 5Hours Urinary Catheter Total Time: 3Days 3Hours General: Obtunded. No: Alert HEENT: Pupils Equal. No: Pupils Reactive, EOMI, Mucous Membr. Moist/[place] (Dry) Neck: Supple Lungs: Decreased Breath Sounds, Rales, Stridor Cardiovascular: Regular Rate, Regular Rhythm GI/Abdominal Exam: Soft, Non-Tender, No Distention. No: Normal Bowel Sounds (Hypoactive) (Female) Exam: Deferred Back Exam: No: Normal Inspection (Obtunded) Extremities: Normal Inspection, No Pedal Edema Skin: Warm, Dry, Intact, Other (Mottled) Neurological: No: No New Focal Deficit Psy/Mental Status: No: Alert, Normal Affect, Normal Mood - Patient Data Result Diagrams: 03/06/21 13:29 03/06/21 13:29 Sepsis Event Note - Evaluation Sepsis Screening Result: No Definite Risk - Focused Exam Vital Signs: Vital Signs Temp Pulse Resp BP Pulse Ox 03/09/21 19:08 36.7 C 88 14 94/51 L 95 - Problem List Review Problem List Initiated/Reviewed/Updated: Yes - Assessment Assessment:: Day of admission: 03/06/2021 Assessment: 1. Acute hypoxic respiratory failure SpO2 89 on RM in the ER. 2. Myelodysplastic syndrome 3. Pancytopenia WBC 0.59, RBC 2.58 and plts 14 in the ER. 4. DHEERAJ or DHEERAJ on CKD, creatinine 1.6 in the ER. It was 1.0 on 12/15/2020 5. Hyperbilirubinemia, 1.3 in the ER 6. Elevation of liver enzymes Plan: Met family including , son, daughter and two granddaughters. I explained her condition and treatment options to them. They all agreed the plan below: 1. No transfusion 2. No Labs 3. No imagine tests 4. No IVF 5. oxygen as needed. 6. pain meds, meds for nausea/vomiting, anxiety, secretion and other meds related to comfort care. No meds which are not related to comfort care. They fully understood that pain med can suppress her respiration. 7. DNR/DNI manager army/manager social services consult As needed [facility] for anxiety 03/07/2021 Patient admitted for comfort care. Overall she is doing okay. No current pain. She does have a port in her chest and we will be using this for IV medications if pain arises. Because of this we will start her on TKO NS to keep the port accessible. No labs drawn today. Patient pending placement. We will continue comfort care as noted. 03/08/2021 80-year-old female with a history of MDS admitted for comfort care. She denies any current pain. She is very confused today. She is very weak and nursing reports she is having difficulty getting out of bed. We will switch her medications to oral as she is still able to have some crackers per nursing. Th cal include morphine and Ativan as needed for pain and anxiety respectively. Discussed removing Garcia catheter however nursing is concerned as patient is very weak and a high fall risk. Patient is comfort care and we will leave the Garcia catheter in place at this time. Social work continues to work on placement. No labs were drawn today. Unknown length of stay pending placement. 03/09/2021 80-year-old female with a history of MDS admitted for comfort care. Patient is very confused but is alert. Responses garbled. Family is at bedside and does report patient appears comfortable. We will continue morphine and Ativan as needed. Garcia catheter remains in place with minimal output put. Port was deaccessed yesterday and we are giving the patient sublingual morphine and crushed Ativan tablets. Oxygen was discontinued today. No acute concerns. No labs obtained. Unknown length of stay pending placement. - Plan Plan:: End of life care Garcia catheter in place * No transfusions, labs, imaging, IV fluids * Discontinue oxygen * As needed Ativan for anxiety * As needed morphine for pain * Scopolamine patch for secretions * CM/SW for placement * Spiritual care consultation * Discontinue home meds * Tylenol for pain/fever * Contiue Garcia catheter for comfort cares * Vital signs every shift Inactive: Acute hypoxemic respiratory failure Myelodysplasia (myelodysplastic syndrome) DHEERAJ (acute kidney injury) Transaminitis Hyperbilirubinemia Pancytopenia Hyponatremia GERD (gastroesophageal reflux disease) IBD (inflammatory bowel disease) Ulcerative colitis Code status: DNR/DNI/Comfort care Oncology: Suha Ochoa NP DVT Prophylaxis: Not indicated - Comfort cares Social: Pending placement Disposition: Patient admitted and placed on comfort cares after discussion with family. Discharge pending placement. 03/10/2021 The patient is a 80-year-old lady who is currently in hospital due to myelodysplastic disorder. 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 The patient is currently in comfort measures. Hospice is not available. Family was not in the room at the time of examination. Continue wi th comfort measures with pain control, Ativan for agitation and scopolamine for secretions.
[2021-03-11] MEDS: Morphine 10 MG/0.5 ML Oral Syringe PO PRN ×3 (08:07→15:48)
--- NOTE | 2021-03-11 13:39 | PCM.PN ---
- General Info Date of Service: 03/11/21 Admission Dx/Problem (Free Text): Admission Diagnosis/Problem Admission Diagnosis/Problem MDS/MPN (myelodysplastic/myeloproliferative neoplasms) Subjective Update: The patient is a 80-year-old lady who was admitted to acute hospitalization due to myelodysplastic disorder and is currently under comfort measures. Hospice does not have staffing to accept patient. Patient states that she is having some pain. Pain is improved with her morphine. - Review of Systems General: Reports: Other (Unable to get review of systems secondary to decreased mentation.) - Patient Data Vitals - Most Recent: Last Vital Signs Temp 97.0 F 03/11/21 07:30 Pulse 96 03/11/21 07:30 Resp 14 03/11/21 07:30 BP 89/53 L 03/11/21 07:30 Pulse Ox 95 03/11/21 07:30 Weight - Most Recent: 127 lb 12.8 oz I&O - Last 24 Hours: Intake & Output 03/10/21 03/11/21 03/11/21 22:59 06:59 14:59 Intake Total 120 60 Output Total 400 500 Balance -280 -440 Med Orders - Current: Current Medications Acetaminophen (Acetaminophen 325 Mg Tab) 650 mg PO Q6H PRN PRN Reason: Pain (Mild 1-3)/fever Acetaminophen (Acetaminophen 650 Mg Supp) 650 mg RECTAL Q6H PRN PRN Reason: Pain/Fever Atropine Sulfate (Atropine 1% Ophth Soln 5 Ml Bottle) 0 ml SL Q2H PRN PRN Reason: Excessive secretions Lorazepam (Lorazepam 1 Mg Tab) 1 mg .XX Q4H PRN PRN Reason: ANXIETY/RESTLESSNESS Last Admin: 03/09/21 10:43 Dose: 1 mg Documented by: Miscellaneous Information (Remove Patch) 1 ea TRDERM Q72H [facility] Last Admin: 03/09/21 18:34 Dose: 1 ea Documented by: Morphine Sulfate (Morphine 10 Mg/0.5 Ml Oral Syringe) 5 mg PO Q2H PRN PRN Reason: Pain/comfort care Last Admin: 03/11/21 11:50 Dose: 5 mg Documented by: Ondansetron HCl (Ondansetron 4 Mg Tab.Dis) 4 mg PO Q6H PRN PRN Reason: Nausea/Vomiting Last Admin: 03/11/21 12:00 Dose: 4 mg Documented by: Scopolamine (Scopolamine 1.5 Mg Transdermal Patch) 1.5 mg TRDERM Q72H [facility] Last Admin: 03/09/21 18:34 Dose: 1.5 mg Documented by: Discontinued Medications Heparin Sodium (Porcine) (Heparin Sodium 100 Units/Ml 5 Ml Syringe) 500 units FLUSH ONETIME ONE Stop: 03/08/21 18:17 Last Admin: 03/08/21 18:38 Dose: 500 units Documented by: Promethazine HCl 12.5 mg/ (Sodium Chloride) 50.5 mls @ 100 mls/hr IV Q6H PRN PRN Reason: Nausea/Vomiting Lactated Ringer's (Ringers, Lactated) 1,000 mls @ 10 mls/hr IV ASDIRECTED [facility] Last Admin: 03/07/21 12:14 Dose: 10 mls/hr Documented by: Sodium Chloride (Normal Saline) 1,000 mls @ 10 mls/hr IV ASDIRECTED [facility] Stop: 03/12/21 09:34 Lorazepam (Lorazepam 2 Mg/Ml Sdv) 0.5 mg IVPUSH Q4H PRN PRN Reason: Anxiety Last Admin: 03/08/21 02:49 Dose: 0.5 mg Documented by: Lorazepam (Lorazepam 0.5 Mg Tab) 0.5 mg PO Q6H PRN PRN Reason: Anxiety Lorazepam (Lorazepam 2 Mg/Ml Sdv) 2 mg IVPUSH Q6H PRN PRN Reason: Anxeity Morphine Sulfate (Morphine 2 Mg/Ml Syringe) 2 mg IVPUSH Q4H PRN PRN Reason: Pain (severe 7-10) Stop: 03/07/21 15:28 Morphine Sulfate (Morphine 2 Mg/Ml Syringe) 2 mg IVPUSH Q2H PRN PRN Reason: Pain Last Admin: 03/08/21 02:26 Dose: 2 mg Documented by: Morphine Sulfate (Morphine 10 Mg/0.5 Ml Oral Syringe) 5 mg PO Q2H PRN PRN Reason: Pain Morphine Sulfate (Morphine 4 Mg/Ml Vial) 4 mg IVPUSH Q2H PRN PRN Reason: Pain Morphine Sulfate (Morphine 4 Mg/Ml Syringe) 4 mg IVPUSH Q2H PRN PRN Reason: pain Ondansetron HCl (Ondansetron 4 Mg/2 Ml Sdv) 4 mg IVPUSH Q4H PRN PRN Reason: Nausea/Vomiting - Exam Central Line Total Time: 2Days 5Hours Urinary Catheter Total Time: 4Days 18Hours General: Lethargic HEENT: Pupils Equal Lungs: Normal Respiratory Effort, Crackles Cardiovascular: Regular Rate, Regular Rhythm GI/Abdominal Exam: Soft, Non-Tender, No Organomegaly, No Distention, Abnormal Bowel Sounds (Decreased) - Patient Data Result Diagrams: 03/06/21 13:29 03/06/21 13:29 Sepsis Event Note - Evaluation Sepsis Screening Result: No Definite Risk - Focused Exam Vital Signs: Vital Signs Temp Pulse Resp BP Pulse Ox 03/11/21 07:30 97.0 F 96 14 89/53 L 95 - Problem List & Annotations (1) End of life care SNOMED Code(s): 916583363, 193228075 Code(s): Z51.5 - ENCOUNTER FOR PALLIATIVE CARE Status: Acute Priority: High Current Visit: Yes (2) Myelodysplasia (myelodysplastic syndrome) SNOMED Code(s): 742963500 Code(s): D46.9 - MYELODYSPLASTIC SYNDROME, UNSPECIFIED Status: Chronic Priority: High Current Visit: Yes - Problem List Review Problem List Initiated/Reviewed/Updated: Yes - My Orders Last 24 Hours: My Active Orders 03/11/21 13:21 Renew/Continue Urinary Catheter [OM.PC] Routine - Assessment Assessment:: Day of admission: 03/06/2021 Assessment: 1. Acute hypoxic respiratory failure SpO2 89 on RM in the ER. 2. Myelodysplastic syndrome 3. Pancytopenia WBC 0.59, RBC 2.58 and plts 14 in the ER. 4. DHEERAJ or DHEERAJ on CKD, creatinine 1.6 in the ER. It was 1.0 on 12/15/2020 5. Hyperbilirubinemia, 1.3 in the ER 6. Elevation of liver enzymes Plan: Met family including , son, daughter and two granddaughters. I explained her condition and treatment options to them. They all agreed the plan below: 1. No transfusion 2. No Labs 3. No imagine tests 4. No IVF 5. oxygen as needed. 6. pain meds, meds for nausea/vomiting, anxiety, secretion and other meds related to comfort care. No meds which are not related to comfort care. They fully understood that pain med can suppress her respiration. 7. DNR/DNI information systems manager/social media designer consult As needed Ativan for anxiety 03/07/2021 Patient admitted for comfort care. Overall she is doing okay. No current pain. She does have a port in her chest and we will be using this for IV medications if pain arises. Because of this we will start her on TKO NS to keep the port accessible. No labs drawn today. Patient pending placement. We will continue comfort care as noted. 03/08/2021 80-year-old female with a history of MDS admitted for comfort care. She denies any current pain. She is very confused today. She is very weak and nursing reports she is having difficulty getting out of bed. We will switch her medications to oral as she is still able to have some crackers per nursing. These include morphine and Ativan as needed for pain and anxiety respectively. Discussed removing Garcia catheter however nursing is concerned as patient is very weak and a high fall risk. Patient is comfort care and we will leave the Garcia catheter in place at this time. Social work continues to work on placement. No labs were drawn today. Unknown length of stay pending placement. 03/09/2021 80-year-old female with a history of MDS admitted for comfort care. Patient is very confused but is alert. Responses garbled. Family is at bedside and does report patient appears comfortable. We will continue morphine and Ativan as needed. Garcia catheter remains in place with minimal output put. Port was deaccessed yesterday and we are giving the patient sublingual morphine and crushed Ativan tablets. Oxygen was discontinued today. No acute concerns. No labs obtained. Unknown length of stay pending placement. 03/10/2021 The patient is a 80-year-old lady who is currently in hospital due to myelodysplastic disorder. 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 The patient is currently in comfort measures. Hospice is not available. Family was not in the room at the time of examination. Continue with comfort measures with pain control, Ativan for agitation and scopolamine for secretions. 03/11/2021 80-year-old female with end-stage myelodysplastic disorder and pancytopenia admitted for comfort measures. Hospice is not available secondary to shortage of staffing. Patient was able to communicate that she was uncomfortable today and given morphine. Otherwise, she is obtunded and unable to communicate. Continue comfort measures as prescribed. - Plan Plan:: End of life care Garcia catheter in place * No transfusions, labs, imaging, IV fluids * Discontinue oxygen * As needed Ativan for anxiety * As needed morphine for pain * Scopolamine patch for secretions * CM/SW for placement * Spiritual care consultation * Discontinue home meds * Tylenol for pain/fever * Contiue Garcia catheter for comfort cares * Vital signs every shift Inactive: Acute hypoxemic respiratory failure Myelodysplasia (myelodysplastic syndrome) DHEERAJ (acute kidney injury) Transaminitis Hyperbilirubinemia Pancytopenia Hyponatremia GERD (gastroesophageal reflux disease) IBD (inflammatory bowel disease) Ulcerative colitis Code status: DNR/DNI/Comfort care Oncology: Suha Ochoa NP DVT Prophylaxis: Not indicated - Comfort cares Social: Pending placement Disposition: Patient admitted and placed on comfort cares after discussion with family. Discharge pending placement.
[2021-03-12] MEDS: LORazepam 1 MG Tab PRN ×3 (01:00→17:57)
[2021-03-12] MEDS: Morphine 10 MG/0.5 ML Oral Syringe PO PRN ×4 (09:10→23:04)
--- NOTE | 2021-03-12 09:23 | PCM.PN ---
- General Info Date of Service: 03/12/21 Admission Dx/Problem (Free Text): Admission Diagnosis/Problem Admission Diagnosis/Problem MDS/MPN (myelodysplastic/myeloproliferative neoplasms) Subjective Update: The patient is a 80-year-old lady who was admitted to acute hospitalization due to myelodysplastic disorder and is currently under comfort measures. Hospice does not have staffing to accept patient. Patient was less responsive this morning. Nursing states that she did was more responsive yesterday. - Patient Data Vitals - Most Recent: Last Vital Signs Temp 96.4 F L 03/11/21 19:22 Pulse 87 03/11/21 19:22 Resp 17 03/11/21 19: BP 89/48 L 03/11/21 19: Pulse Ox 90 L 03/11/21 19:22 Weight - Most Recent: 127 lb 12.8 oz I&O - Last 24 Hours: Intake & Output 03/11/21 03/12/21 03/12/21 22:59 06:59 14:59 Intake Total 20 50 Output Total 300 275 Balance -280 -225 Med Orders - Current: Current Medications Acetaminophen (Acetaminophen 325 Mg Tab) 650 mg PO Q6H PRN PRN Reason: Pain (Mild 1-3)/fever Acetaminophen (Acetaminophen 650 Mg Supp) 650 mg RECTAL Q6H PRN PRN Reason: Pain/Fever Atropine Sulfate (Atropine 1% Ophth Soln 5 Ml Bottle) 0 ml SL Q2H PRN PRN Reason: Excessive secretions Lorazepam (Lorazepam 1 Mg Tab) 1 mg .XX Q4H PRN PRN Reason: ANXIETY/RESTLESSNESS Last Admin: 03/12/21 08:22 Dose: 1 mg Documented by: Miscellaneous Information (Remove Patch) 1 ea TRDERM Q72H [facility] Last Admin: 03/09/21 18:34 Dose: 1 ea Documented by: Morphine Sulfate (Morphine 10 Mg/0.5 Ml Oral Syringe) 5 mg PO Q2H PRN PRN Reason: Pain/comfort care Last Admin: 03/12/21 09:10 Dose: 5 mg Documented by: Ondansetron HCl (Ondansetron 4 Mg Tab.Dis) 4 mg PO Q6H PRN PRN Reason: Nausea/Vomiting Last Admin: 03/11/21 12:00 Dose: 4 mg Documented by: Scopolamine (Scopolamine 1.5 Mg Transdermal Patch) 1.5 mg TRDERM Q72H [facility] Last Admin: 03/09/21 18:34 Dose: 1.5 mg Documented by: Discontinued Medications Heparin Sodium (Porcine) (Heparin Sodium 100 Units/Ml 5 Ml Syringe) 500 units FLUSH ONETIME ONE Stop: 03/08/21 18:17 Last Admin: 03/08/21 18:38 Dose: 500 units Documented by: Promethazine HCl 12.5 mg/ (Sodium Chloride) 50.5 mls @ 100 mls/hr IV Q6H PRN PRN Reason: Nausea/Vomiting Lactated Ringer's (Ringers, Lactated) 1,000 mls @ 10 mls/hr IV ASDIRECTED [facility] Last Admin: 03/07/21 12:14 Dose: 10 mls/hr Documented by: Sodium Chloride (Normal Saline) 1,000 mls @ 10 mls/hr IV ASDIRECTED [facility] Stop: 03/12/21 09:34 Lorazepam (Lorazepam 2 Mg/Ml Sdv) 0.5 mg IVPUSH Q4H PRN PRN Reason: Anxiety Last Admin: 03/08/21 02:49 Dose: 0.5 mg Documented by: Lorazepam (Lorazepam 0.5 Mg Tab) 0.5 mg PO Q6H PRN PRN Reason: Anxiety Lorazepam (Lorazepam 2 Mg/Ml Sdv) 2 mg IVPUSH Q6H PRN PRN Reason: Anxeity Morphine Sulfate (Morphine 2 Mg/Ml Syringe) 2 mg IVPUSH Q4H PRN PRN Reason: Pain (severe 7-10) Stop: 03/07/21 15:28 Morphine Sulfate (Morphine 2 Mg/Ml Syringe) 2 mg IVPUSH Q2H PRN PRN Reason: Pain Last Admin: 03/08/21 02:26 Dose: 2 mg Documented by: Morphine Sulfate (Morphine 10 Mg/0.5 Ml Oral Syringe) 5 mg PO Q2H PRN PRN Reason: Pain Morphine Sulfate (Morphine 4 Mg/Ml Vial) 4 mg IVPUSH Q2H PRN PRN Reason: Pain Morphine Sulfate (Morphine 4 Mg/Ml Syringe) 4 mg IVPUSH Q2H PRN PRN Reason: pain Ondansetron HCl (Ondansetron 4 Mg/2 Ml Sdv) 4 mg IVPUSH Q4H PRN PRN Reason: Nausea/Vomiting - Exam Central Line Total Time: 2Days 5Hours Urinary Catheter Total Time: 5Days 4Hours General: Obtunded HEENT: Pupils Equal Neck: Supple Lungs: Normal Respiratory Effort, Crackles Cardiovascular: Regular Rate, Regular Rhythm GI/Abdominal Exam: Normal Bowel Sounds, Soft, Non-Tender, No Distention Extremities: Normal Inspection Skin: Warm, Dry, Intact - Patient Data Result Diagrams: 03/06/21 13:29 03/06/21 13:29 Sepsis Event Note - Evaluation Sepsis Screening Result: No Definite Risk - Problem List & Annotations (1) End of life care SNOMED Code(s): 199117033, 502151708 Code(s): Z51.5 - ENCOUNTER FOR PALLIATIVE CARE Status: Acute Priority: High Current Visit: Yes (2) Myelodysplasia (myelodysplastic syndrome) SNOMED Code(s): 659010311 Code(s): D46.9 - MYELODYSPLASTIC SYNDROME, UNSPECIFIED Status: Chronic Priority: High Current Visit: Yes - Problem List Review Problem List Initiated/Reviewed/Updated: Yes - My Orders Last 24 Hours: My Active Orders 03/11/21 13:21 Renew/Continue Urinary Catheter [OM.PC] Routine - Assessment Assessment:: Day of admission: 03/06/2021 Assessment: 1. Acute hypoxic respiratory failure SpO2 89 on RM in the ER. 2. Myelodysplastic syndrome 3. Pancytopenia WBC 0.59, RBC 2.58 and plts 14 in the ER. 4. DHEERAJ or DHEERAJ on CKD, creatinine 1.6 in the ER. It was 1.0 on 12/15/2020 5. Hyperbilirubinemia, 1.3 in the ER 6. Elevation of liver enzymes Plan: Met family including , son, daughter and two granddaughters. I explained her condition and treatment options to them. They all agreed the plan below: 1. No transfusion 2. No Labs 3. No imagine tests 4. No IVF 5. oxygen as needed. 6. pain meds, meds for nausea/vomiting, anxiety, secretion and other meds related to comfort care. No meds which are not related to comfort care. They fully understood that pain med can suppress her respiration. 7. DNR/DNI manager decision support/elementary school social worker consult As needed [employer] for anxiety 03/07/2021 Patient admitted for comfort care. Overall she is doing okay. No current pain. She does have a port in her chest and we will be using this for IV medications if pain arises. Because of this we will start her on TKO NS to keep the port accessible. No labs drawn today. Patient pending placement. We will continue comfort care as noted. 03/08/2021 80-year-old female with a history of MDS admitted for comfort care. She denies any current pain. She is very confused today. She is very weak and nursing reports she is having difficulty getting out of bed. We will switch her medications to oral as she is still able to have some crackers per nursing. These include morphine and Ativan as needed for pain and anxiety respectively. Discussed removing Garcia catheter however nursing is concerned as patient is very weak and a high fall risk. Patient is comfort care and we will leave the Garcia catheter in place at this time. Social work continues to work on [employer]. No labs were drawn today. Unknown length of stay pending placement. 03/09/2021 80-year-old female with a history of MDS admitted for comfort care. Patient is very confused but is alert. Responses garbled. Family is at bedside and does report patient appears comfortable. We will continue morphine and Ativan as needed. Garcia catheter remains in place with minimal output put. Port was deaccessed yesterday and we are giving the patient sublingual morphine and cru shed Ativan tablets. Oxygen was discontinued today. No acute concerns. No labs obtained. Unknown length of stay pending placement. 03/10/2021 The patient is a 80-year-old lady who is currently in hospital due to myelodysplastic disorder. 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 The patient is currently in comfort measures. Hospice is not availab le. Family was not in the room at the time of examination. Continue with comfort measures with pain control, Ativan for agitation and scopolamine for secretions. 03/11/2021 80-year-old female with end-stage myelodysplastic disorder and pancytopenia admitted for comfort measures. Hospice is not available secondary to shortage of staffing. Patient was able to communicate that she was uncomfortable today and given morphine. Otherwise, she is obtunded and unable to communicate. Continue comfort measures as prescribed. March 12, 2021 Seven 10-year-old female with end-stage mild dysplastic disorder and pancytopenia on comfort measures. She continues with Ativan and morphine for pain. She is still taking fluids but not food. We will continue with comfort measures. - Plan Plan:: End of life care Garcia catheter in place * No transfusions, labs, imaging, IV fluids * Discontinue oxygen * As needed Ativan for anxiety * As needed morphine for pain * Scopolamine patch for secretions * CM/SW for placement * Spiritual care consultation * Discontinue home meds * Tylenol for pain/fever * Contiue Garcia catheter for comfort cares * Vital signs every shift Inactive: Acute hypoxemic respiratory failure Myelodysplasia (myelodysplastic syndrome) DHEERAJ (acute kidney injury) Transaminitis Hyperbilirubinemia Pancytopenia Hyponatremia GERD (gastroesophageal reflux disease) IBD (inflammatory bowel disease) Ulcerative colitis Code status: DNR/DNI/Comfort care Oncology: Suha Ochoa NP DVT Prophylaxis: Not indicated - Comfort cares Social: Pending placement Disposition: Patient admitted and placed on comfort cares after discussion with family. Discharge pending placement.
[2021-03-12] MEDS: Scopolamine 1.5 MG Transdermal Patch TRDERM SCH (17:58)
[2021-03-13] MEDS: Morphine 10 MG/0.5 ML Oral Syringe PO PRN ×5 (02:23→22:51)
--- NOTE | 2021-03-13 07:39 | PCM.PN ---
- General Info Date of Service: 03/13/21 Admission Dx/Problem (Free Text): Admission Diagnosis/Problem Admission Diagnosis/Problem MDS/MPN (myelodysplastic/myeloproliferative neoplasms) - Review of Systems Systems Review Comment:: Unable to obtain ROS due to mental status. - Patient Data Vitals - Most Recent: Last Vital Signs Temp 97.5 F 03/12/21 20:17 Pulse 101 H 03/12/21 20:17 Resp 16 03/12/21 20:17 BP 93/42 L 03/12/21 20:17 Pulse Ox 95 03/12/21 20:17 Weight - Most Recent: 127 lb 12.8 oz I&O - Last 24 Hours: Intake & Output 03/12/21 03/13/21 03/13/21 22:59 06:59 14:59 Intake Total 0 Output Total 150 100 Balance -150 -100 Med Orders - Current: Current Medications Acetaminophen (Acetaminophen 325 Mg Tab) 650 mg PO Q6H PRN PRN Reason: Pain (Mild 1-3)/fever Acetaminophen (Acetaminophen 650 Mg Supp) 650 mg RECTAL Q6H PRN PRN Reason: Pain/Fever Atropine Sulfate (Atropine 1% Ophth Soln 5 Ml Bottle) 0 ml SL Q2H PRN PRN Reason: Excessive secretions Lorazepam (Lorazepam 1 Mg Tab) 1 mg .XX Q4H PRN PRN Reason: ANXIETY/RESTLESSNESS Last Admin: 03/12/21 17:57 Dose: 1 mg Documented by: Miscellaneous Information (Remove Patch) 1 ea TRDERM Q72H [facility] Last Admin: 03/12/21 18:16 Dose: 1 ea Documented by: Morphine Sulfate (Morphine 10 Mg/0.5 Ml Oral Syringe) 5 mg PO Q2H PRN PRN Reason: Pain/comfort care Last Admin: 03/13/21 02:23 Dose: 5 mg Documented by: Ondansetron HCl (Ondansetron 4 Mg Tab.Dis) 4 mg PO Q6H PRN PRN Reason: Nausea/Vomiting Last Admin: 03/11/21 12:00 Dose: 4 mg Documented by: Scopolamine (Scopolamine 1.5 Mg Transdermal Patch) 1.5 mg TRDERM Q72H [facility] Last Admin: 03/12/21 17:58 Dose: 1.5 mg Documented by: Discontinued Medications Heparin Sodium (Porcine) (Heparin Sodium 100 Units/Ml 5 Ml Syringe) 500 units FLUSH ONETIME ONE Stop: 03/08/21 18:17 Last Admin: 03/08/21 18:38 Dose: 500 units Documented by: Promethazine HCl 12.5 mg/ (Sodium Chloride) 50.5 mls @ 100 mls/hr IV Q6H PRN PRN Reason: Nausea/Vomiting Lactated Ringer's (Ringers, Lactated) 1,000 mls @ 10 mls/hr IV ASDIRECTED [facility] Last Admin: 03/07/21 12:14 Dose: 10 mls/hr Documented by: Sodium Chloride (Normal Saline) 1,000 mls @ 10 mls/hr IV ASDIRECTED [facility] Stop: 03/12/21 09:34 Lorazepam (Lorazepam 2 Mg/Ml Sdv) 0.5 mg IVPUSH Q4H PRN PRN Reason: Anxiety Last Admin: 03/08/21 02:49 Dose: 0.5 mg Documented by: Lorazepam (Lorazepam 0.5 Mg Tab) 0.5 mg PO Q6H PRN PRN Reason: Anxiety Lorazepam (Lorazepam 2 Mg/Ml Sdv) 2 mg IVPUSH Q6H PRN PRN Reason: Anxeity Morphine Sulfate (Morphine 2 Mg/Ml Syringe) 2 mg IVPUSH Q4H PRN PRN Reason: Pain (severe 7-10) Stop: 03/07/21 15:28 Morphine Sulfate (Morphine 2 Mg/Ml Syringe) 2 mg IVPUSH Q2H PRN PRN Reason: Pain Last Admin: 03/08/21 02:26 Dose: 2 mg Documented by: Morphine Sulfate (Morphine 10 Mg/0.5 Ml Oral Syringe) 5 mg PO Q2H PRN PRN Reason: Pain Morphine Sulfate (Morphine 4 Mg/Ml Vial) 4 mg IVPUSH Q2H PRN PRN Reason: Pain Morphine Sulfate (Morphine 4 Mg/Ml Syringe) 4 mg IVPUSH Q2H PRN PRN Reason: pain Ondansetron HCl (Ondansetron 4 Mg/2 Ml Sdv) 4 mg IVPUSH Q4H PRN PRN Reason: Nausea/Vomiting - Exam Quality Assessment: Urine Catheter (comfort care). No: Supplemental Oxygen, DVT Prophylaxis (comfort care) Central Line Total Time: 2Days 5Hours Urinary Catheter Total Time: 6Days 4Hours General: No Acute Distress, Lethargic, Other (Opens eyes to questioning briefly). No: Alert HEENT: Pupils Equal, Pupils Reactive Neck: Supple, Trachea Midline Lungs: Crackles. No: Normal Respiratory Effort (Tachypnea) Cardiovascular: Regular Rate, Regular Rhythm GI/Abdominal Exam: Normal Bowel Sounds, Soft, No Distention (Female) Exam: Deferred Extremities: Normal Inspection, No Pedal Edema Skin: Warm, Dry, Intact - Patient Data Result Diagrams: 03/06/21 13:29 03/06/21 13:29 Sepsis Event Note - Evaluation Sepsis Screening Result: No Definite Risk - Focused Exam Vital Signs: Vital Signs Temp Pulse Resp BP Pulse Ox 03/12/21 20:17 97.5 F 101 H 16 93/42 L 95 - Problem List & Annotations (1) End of life care SNOMED Code(s): 938648276, 375751800 Code(s): Z51.5 - ENCOUNTER FOR PALLIATIVE CARE Status: Acute Priority: High Current Visit: Yes (2) Acute hypoxemic respiratory failure SNOMED Code(s): 317333590 Code(s): J96.01 - ACUTE RESPIRATORY FAILURE WITH HYPOXIA Status: Acute Priority: High Current Visit: Yes (3) Myelodysplasia (myelodysplastic syndrome) SNOMED Code(s): 362861940 Code(s): D46.9 - MYELODYSPLASTIC SYNDROME, UNSPECIFIED Status: Chronic Priority: High Current Visit: Yes (4) DHEERAJ (acute kidney injury) SNOMED Code(s): 39583494, 93070449 Code(s): N17.9 - ACUTE KIDNEY FAILURE, UNSPECIFIED Status: Acute Priority: Medium Current Visit: Yes (5) Transaminitis SNOMED Code(s): 344360535, 832694978 Code(s): R74.01 - ELEVATION OF LEVELS OF LIVER TRANSAMINASE LEVELS Status: Chronic Priority: High Current Visit: Yes (6) Hyperbilirubinemia SNOMED Code(s): 98634387 Code(s): E80.6 - OTHER DISORDERS OF BILIRUBIN METABOLISM Status: Chronic Priority: High Current Visit: Yes (7) Pancytopenia SNOMED Code(s): 727238174 Code(s): D61.818 - OTHER PANCYTOPENIA Status: Chronic Priority: High Current Visit: Yes (8) Hyponatremia SNOMED Code(s): 30212595 Code(s): E87.1 - HYPO-OSMOLALITY AND HYPONATREMIA Status: Chronic Priority: High Current Visit: Yes (9) GERD (gastroesophageal reflux disease) SNOMED Code(s): 853131404 Code(s): K21.9 - GASTRO-ESOPHAGEAL REFLUX DISEASE WITHOUT ESOPHAGITIS Status: Chronic Priority: Low Current Visit: No Qualifiers: Esophagitis presence: esophagitis presence not specified Qualified Code(s): K21.9 - Gastro-esophageal reflux disease without esophagitis (10) IBD (inflammatory bowel disease) SNOMED Code(s): 97024857 Code(s): K52.9 - NONINFECTIVE GASTROENTERITIS AND COLITIS, UNSPECIFIED Status: Chronic Priority: Low Current Visit: No (11) Ulcerative colitis SNOMED Code(s): 86553460 Code(s): K51.90 - ULCERATIVE COLITIS, UNSPECIFIED, WITHOUT COMPLICATIONS Status: Chronic Priority: Low Current Visit: No Qualifiers: Ulcerative colitis location: unspecified ulcerative colitis location Digestive disease complication type: unspecified complication Qualified Code(s): K51.919 - Ulcerative colitis, unspecified with unspecified complications (12) Garcia catheter in place SNOMED Code(s): 771782617 Code(s): Z97.8 - PRESENCE OF OTHER SPECIFIED DEVICES Status: Acute Priority: Low Current Visit: Yes - Problem List Review Problem List Initiated/Reviewed/Updated: Yes - Assessment Assessment:: Day of admission: 03/06/2021 Assessment: 1. Acute hypoxic respiratory failure SpO2 89 on RM in the ER. 2. Myelodysplastic syndrome 3. Pancytopenia WBC 0.59, RBC 2.58 and plts 14 in the ER. 4. DHEERAJ or DHEERAJ on CKD, creatinine 1.6 in the ER. It was 1.0 on 12/15/2020 5. Hyperbilirubinemia, 1.3 in the ER 6. Elevation of liver enzymes Plan: Met family including , son, daughter and two granddaughters. I explained her condition and treatment options to them. They all agreed the plan below: 1. No transfusion 2. No Labs 3. No imagine tests 4. No IVF 5. oxygen as needed. 6. pain meds, meds for nausea/vomiting, anxiety, secretion and other meds related to comfort care. No meds which are not related to comfort care. They fully understood that pain med can suppress her respiration. 7. DNR/DNI material control manager/dialysis social worker consult As needed Ativan for anxiety 03/07/2021 Patient admitted for comfort care. Overall she is doing okay. No current pain. She does have a port in her chest and we will be using this for IV medications if pain arises. Because of this we will start her on TKO NS to keep the port accessible. No labs drawn today. Patient pending placement. We will continue comfort care as noted. 03/08/2021 80-year-old female with a history of MDS admitted for comfort care. She denies any current pain. She is very confused today. She is very weak and nursing reports she is having difficulty getting out of bed. We will switch her medications to oral as she is still able to have some crackers per nursing. These include morphine and Ativan as needed for pain and anxiety respectively. Discussed removing Garcia catheter however nursing is concerned as patient is very weak and a high fall risk. Patient is comfort care and we will leave the Garcia catheter in place at this time. Social work continues to work on place ment. No labs were drawn today. Unknown length of stay pending placement. 03/09/2021 80-year-old female with a history of MDS admitted for comfort care. Patient is very confused but is alert. Responses garbled. Family is at bedside and does report patient appears comfortable. We will continue morphine and Ativan as needed. Garcia catheter remains in place with minimal output put. Port was deaccessed yesterday and we are giving the patient sublingual morphine and crushed Ativan tablets. Oxygen was discontinued today. No acute concerns. No labs obtained. Unknown length of stay pending placement. 03/10/2021 The patient is a 80-year-old lady who is currently in hospital due to myelodysplastic disorder. 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 The patient is currently in comfort measures. Hospice is not [facility]. Family was not in the room at the time of examination. Continue with comfort measures with pain control, Ativan for agitation and scopolamine for secretions. 03/11/2021 80-year-old female with end-stage myelodysplastic disorder and pancytopenia admitted for comfort measures. Hospice is not available secondary to shortage of staffing. Patient was able to communicate that she was uncomfortable today and given morphine. Otherwise, she is obtunded and unable to communicate. Continue comfort measures as prescribed. March 12, 2021 80-year-old female with end-stage mild dysplastic disorder and pancytopenia on comfort measures. She continues with Ativan and morphine for pain. She is still taking fluids but not food. We will continue with comfort measures. 03/13/2021 80-year-old female with end-stage myelodysplastic disorder and pancytopenia is currently admitted for comfort care pending placement. She continues to have p.o. Ativan for anxiety and morphine for pain. Nursing reports she has been taking some fluids. Today she does respond to my presence attempts to speak but is very garbled and does not make much sense. We will continue awaiting placement. Plan for discharge tomorrow with placement. - Plan Plan:: End of life care Garcia catheter in place * No transfusions, labs, imaging, IV fluids * Discontinue oxygen * As needed Ativan for anxiety * As needed morphine for pain * Scopolamine patch for secretions * CM/SW for placement * Spiritual care consultation * Discontinue home meds * Tylenol for pain/fever * Contiue Garcia catheter for comfort cares * Vital signs every shift Inactive: Acute hypoxemic respiratory failure Myelodysplasia (myelodysplastic syndrome) DHEERAJ (acute kidney injury) Transaminitis Hyperbilirubinemia Pancytopenia Hyponatremia GERD (gastroesophageal reflux disease) IBD (inflammatory bowel disease) Ulcerative colitis Code status: DNR/DNI/Comfort care Oncology: Suha Ochoa NP DVT Prophylaxis: Not indicated - Comfort cares Social: Pending placement Disposition: Patient admitted and placed on comfort cares after discussion with family. Discharge pending placement.
--- NOTE | 2021-03-14 07:56 | PCM.DCSUM1 ---
Discharge Summary - Hospital Course HPI Initial Comments: Patient is a 89-year-old female with a history of myelodysplastic syndrome who was referred by for for hospice care placement. Patient is currently no longer receiving any infusion or treatment and basically is now on DNR/DNI comfort measures. Patient lives alone at home and is unable to take care of herself. Over the past 3 days, she has not been eating well. Patient had a fall and got a hit on her head, producing a small contusion on the back of the head. In the ER, patient was found to have oxygen desaturation 89 on room air. Labs showed pancytopenia including white blood cells of 0.59, red blood cells of 2.58, platelets 14. CT of head negative for acute change. When I saw this patient in the ER, she complained of generalized weakness, low energy and poor appetite. Diagnosis: Stroke: No - Discharge Data Discharge Date: 03/14/21 (Admit date: 03/06/2021) Discharge Disposition: DC/Tfer to SNF 03 Condition: Poor - Referral to Home Health Primary Care Physician: Fidencio Ochoa, PRODUCTION MACHINE SHOP SUPERVISOR - Discharge Diagnosis/Problem(s) (1) End of life care SNOMED Code(s): 036747867, 840309345 ICD Code: Z51.5 - ENCOUNTER FOR PALLIATIVE CARE Status: Acute Priority: High Current Visit: Yes (2) Acute hypoxemic respiratory failure SNOMED Code(s): 869115529 ICD Code: J96.01 - ACUTE RESPIRATORY FAILURE WITH HYPOXIA Status: Acute Priority: High Current Visit: Yes (3) Myelodysplasia (myelodysplastic syndrome) SNOMED Code(s): 724824235 ICD Code: D46.9 - MYELODYSPLASTIC SYNDROME, UNSPECIFIED Status: Chronic Priority: High Current Visit: Yes (4) DHEERAJ (acute kidney injury) SNOMED Code(s): 91908596, 39800516 ICD Code: N17.9 - ACUTE KIDNEY FAILURE, UNSPECIFIED Status: Acute Priority: Medium Current Visit: Yes (5) Transaminitis SNOMED Code(s): 284962942, 911022447 ICD Code: R74.01 - ELEVATION OF LEVELS OF LIVER TRANSAMINASE LEVELS Status: Chronic Priority: High Current Visit: Yes (6) Hyperbilirubinemia SNOMED Code(s): 07578953 ICD Code: E80.6 - OTHER DISORDERS OF BILIRUBIN METABOLISM Status: Chronic Priority: High Current Visit: Yes (7) Pancytopenia SNOMED Code(s): 786201987 ICD Code: D61.818 - OTHER PANCYTOPENIA Status: Chronic Priority: High Current Visit: Yes (8) Hyponatremia SNOMED Code(s): 19509515 ICD Code: E87.1 - HYPO-OSMOLALITY AND HYPONATREMIA Status: Chronic Priority: High Current Visit: Yes (9) GERD (gastroesophageal reflux disease) SNOMED Code(s): 886266646 ICD Code: K21.9 - GASTRO-ESOPHAGEAL REFLUX DISEASE WITHOUT ESOPHAGITIS Status: Chronic Priority: Low Current Visit: No Qualifiers: Esophagitis presence: esophagitis presence not specified Qualified Code(s): K21.9 - Gastro-esophageal reflux disease without esophagitis (10) IBD (inflammatory bowel disease) SNOMED Code(s): 16944383 ICD Code: K52.9 - NONINFECTIVE GASTROENTERITIS AND COLITIS, UNSPECIFIED Status: Chronic Priority: Low Current Visit: No (11) Ulcerative colitis SNOMED Code(s): 78786276 ICD Code: K51.90 - ULCERATIVE COLITIS, UNSPECIFIED, WITHOUT COMPLICATIONS Status: Chronic Priority: Low Current Visit: No Qualifiers: Ulcerative colitis location: unspecified ulcerative colitis location Digestive disease complication type: unspecified complication Qualified Code(s): K51.919 - Ulcerative colitis, unspecified with unspecified complications (12) Garcia catheter in place SNOMED Code(s): 144819872 ICD Code: Z97.8 - PRESENCE OF OTHER SPECIFIED DEVICES Status: Acute Priority: Low Current Visit: Yes - Patient Summary/Data Consults: Consultations 03/06/21 15:26 Consult to Case Management/Avionics Integration Engineer [CONS] Routine 03/07/21 08:14 Consult to Hospice [CONS] Routine 03/07/21 10:47 Consult to Spiritual Care [CONS] Routine Labs Pending at D/C: None Recommended Follow-up Testing/Procedures: Follow-up with primary care provider as needed for comfort care. * Patient discharged on liquid morphine for pain and liquid Ativan for anxiety. * Discharged on p.o. and rectal Tylenol as needed for pain/fever * Discharged on scopolamine patch for nausea/excessive secretions and as needed atropine drops for excessive secretions. * Garcia catheter to remain in place at SNF for comfort cares Hospital Course: This is a 80-year-old female who presented to ED on 03/06/2021 with concerns over placement. Patient does have myelodysplastic syndrome but is not been receiving any therapies. She lives at home by herself and was at the point where she was unable to care for herself. Labs were obtained and she was noted to be neutropenic and anemic with a platelet count of 14,000. Creatinine was elevated at 1.6 with a GFR 31. Influenza a and B and SARS-CoV-2 RNA were both negative. Discussion ensued with the family and she was ultimately made comfort cares. All home medications were discontinued and patient was made a regular diet. All lab draws, further imaging, and further work-up were discontinued. Does have a port in her right chest which was accessed and she was receiving Ativan and morphine through this. This was deaccessed that she was switched to p.o. Ativan and morphine with good control. Garcia catheter was placed for comfort care as the patient was noted to be very weak. Throughout her stay patient has been progressively getting more lethargic. She has been taking in small sips of water and did reportedly have part of a cracker. She does attempt to talk and answer questions but is very confused and her words are garbled. Ultimately she was accepted at [facility]. She will be discharged today. Home eyedrops were continued for comfort cares. Patient be discharged on as needed liquid morphine and liquid Ativan for pain and anxiety respectively. She was also discharged on scopolamine patch and as needed Ativan for excessive secretions. Tylenol both rectal and oral routes were ordered at discharge as well. Her Garcia catheter will remain in place for comfort care. Due to patient's weakness, confusion, and inability to ambulate ambulance will be utilized for transfer. She will be discharged as a comfort care patient. Recommend follow-up with PCP as needed for comfort cares. - Patient Instructions Diet: Usual Diet as Tolerated Activity: As Tolerated Driving: Do Not Drive Showering/Bathing: May Shower Notify Provider of: Increased Pain, Nausea and/or Vomiting Other/Special Instructions: Follow-up with primary care provider as needed for comfort cares. Garcia catheter to remain in place for comfort cares. - Discharge Plan *PRESCRIPTION DRUG MONITORING PROGRAM REVIEWED*: No *COPY OF PRESCRIPTION DRUG MONITORING REPORT IN PATIENT ARIELLE: No Prescriptions/Med Rec: LORazepam [Ativan] 0.5 mg PO Q6H PRN #10 ml PRN Reason: Anxiety/comfort cares Atropine 1% [Atropine 1% Ophth Soln] 2 drop SL Q2H PRN #1 bottle PRN Reason: Excessive secretions Morphine [Morphine 20 MG/ML Oral Soln] 5 mg PO Q1H PRN #30 ml PRN Reason: Pain/Comfort Cares Scopolamine [Transderm-Scop] 1.5 mg TRDERM Q72H #4 patch Acetaminophen [Tylenol] 650 mg PO Q6H PRN #20 tablet PRN Reason: Pain (Mild 1-3)/fever Acetaminophen [Tylenol] 650 mg RECTAL Q6H PRN #10 supp PRN Reason: Pain/Fever Ondansetron [Zofran ODT] 4 mg PO Q6H PRN #10 tab.dis PRN Reason: Nausea/Vomiting Home Medications: Home Meds Latanoprost [Xalatan 0.005% Ophth Soln] 1 drop EYEBOTH BEDTIME 02/08/15 [History] Acetaminophen [Tylenol] 650 mg PO Q6H PRN #20 tablet 03/14/21 [Rx] Acetaminophen [Tylenol] 650 mg RECTAL Q6H PRN #10 supp 03/14/21 [Rx] Atropine 1% [Atropine 1% Ophth Soln] 2 drop SL Q2H PRN #1 bottle 03/14/21 [Rx] LORazepam [Ativan] 0.5 mg PO Q6H PRN #10 ml 03/14/21 [Rx] Morphine [Morphine 20 MG/ML Oral Soln] 5 mg PO Q1H PRN #30 ml 03/14/21 [Rx] Ondansetron [Zofran ODT] 4 mg PO Q6H PRN #10 tab.dis 03/14/21 [Rx] Scopolamine [Transderm-Scop] 1.5 mg TRDERM Q72H #4 patch 03/14/21 [Rx] Oxygen Therapy Mode: Room Air Patient Handouts: End-of-Life Care Forms: ED Department Discharge Referrals: Dhaval Montiel MD [Physician] - (Provider will see at care home. He needs to sign the paper accepting care of this pt at [facility].) - Discharge Summary/Plan Comment DC Time >30 min.: No Total # of Minutes for Discharge Time: 25 - General Info Date of Service: 03/14/21 Admission Dx/Problem (Free Text: Admission Diagnosis/Problem Admission Diagnosis/Problem MDS/MPN (myelodysplastic/myeloproliferative neoplasms) Functional Status: Reports: Pain Controlled, Urinating. Denies: Tolerating Diet (minimal intake ), Ambulating, New Symptoms - Review of Systems Systems Review Comment: Unable to obtain ROS due to patient confusion. Patient appears comfortable in bed and does open eyes to acknowledge my presence. - Patient Data Vitals - Most Recent: Last Vital Signs Temp 97.9 F 03/14/21 03:42 Pulse 107 H 03/14/21 03:42 Resp 14 03/14/21 03:42 BP 79/44 L 03/14/21 03:42 Pulse Ox 97 03/14/21 03:42 Weight - Most Recent: 127 lb 12.8 oz I&O - Last 24 hours: Intake & Output 03/13/21 03/14/21 03/14/21 22:59 06:59 14:59 Intake Total 0 Output Total 180 350 Balance -180 -350 Lab Results - Last 24 hrs: Laboratory Results - last 24 hr 03/14/21 Range/Units 04:10 SARS-CoV-2 RNA (REGULO) Negative (NEGATIVE) Med Orders - Current: Current Medications Acetaminophen (Acetaminophen 325 Mg Tab) 650 mg PO Q6H PRN PRN Reason: Pain (Mild 1-3)/fever Acetaminophen (Acetaminophen 650 Mg Supp) 650 mg RECTAL Q6H PRN PRN Reason: Pain/Fever Atropine Sulfate (Atropine 1% Ophth Soln 5 Ml Bottle) 0 ml SL Q2H PRN PRN Reason: Excessive secretions Lorazepam (Lorazepam 1 Mg Tab) 1 mg .XX Q4H PRN PRN Reason: ANXIETY/RESTLESSNESS Last Admin: 03/12/21 17:57 Dose: 1 mg Documented by: Miscellaneous Information (Remove Patch) 1 ea TRDERM Q72H [facility] Last Admin: 03/12/21 18:16 Dose: 1 ea Documented by: Morphine Sulfate (Morphine 10 Mg/0.5 Ml Oral Syringe) 5 mg PO Q2H PRN PRN Reason: Pain/comfort care Last Admin: 03/13/21 22:51 Dose: 5 mg Documented by: Ondansetron HCl (Ondansetron 4 Mg Tab.Dis) 4 mg PO Q6H PRN PRN Reason: Nausea/Vomiting Last Admin: 03/11/21 12:00 Dose: 4 mg Documented by: Scopolamine (Scopolamine 1.5 Mg Transdermal Patch) 1.5 mg TRDERM Q72H [facility] Last Admin: 03/12/21 17:58 Dose: 1.5 mg Documented by: Discontinued Medications Heparin Sodium (Porcine) (Heparin Sodium 100 Units/Ml 5 Ml Syringe) 500 units FLUSH ONETIME ONE Stop: 03/08/21 18:17 Last Admin: 03/08/21 18:38 Dose: 500 units Documented by: Promethazine HCl 12.5 mg/ (Sodium Chloride) 50.5 mls @ 100 mls/hr IV Q6H PRN PRN Reason: Nausea/Vomiting Lactated Ringer's (Ringers, Lactated) 1,000 mls @ 10 mls/hr IV ASDIRECTED [facility] Last Admin: 03/07/21 12:14 Dose: 10 mls/hr Documented by: Sodium Chloride (Normal Saline) 1,000 mls @ 10 mls/hr IV ASDIRECTED [facility] Stop: 03/12/21 09:34 Lorazepam (Lorazepam 2 Mg/Ml Sdv) 0.5 mg IVPUSH Q4H PRN PRN Reason: Anxiety Last Admin: 03/08/21 02:49 Dose: 0.5 mg Documented by: Lorazepam (Lorazepam 0.5 Mg Tab) 0.5 mg PO Q6H PRN PRN Reason: Anxiety Lorazepam (Lorazepam 2 Mg/Ml Sdv) 2 mg IVPUSH Q6H PRN PRN Reason: Anxeity Morphine Sulfate (Morphine 2 Mg/Ml Syringe) 2 mg IVPUSH Q4H PRN PRN Reason: Pain (severe 7-10) Stop: 03/07/21 15:28 Morphine Sulfate (Morphine 2 Mg/Ml Syringe) 2 mg IVPUSH Q2H PRN PRN Reason: Pain Last Admin: 03/08/21 02:26 Dose: 2 mg Documented by: Morphine Sulfate (Morphine 10 Mg/0.5 Ml Oral Syringe) 5 mg PO Q2H PRN PRN Reason: Pain Morphine Sulfate (Morphine 4 Mg/Ml Vial) 4 mg IVPUSH Q2H PRN PRN Reason: Pain Morphine Sulfate (Morphine 4 Mg/Ml Syringe) 4 mg IVPUSH Q2H PRN PRN Reason: pain Ondansetron HCl (Ondansetron 4 Mg/2 Ml Sdv) 4 mg IVPUSH Q4H PRN PRN Reason: Nausea/Vomiting - Exam Quality Assessment: Reports: Urine Catheter (Comfort cares ). Denies: Supplemental Oxygen, DVT Prophylaxis (Comfort cares) General: Reports: Lethargic HEENT: Reports: Pupils Equal Neck: Reports: Supple Lungs: Reports: Normal Respiratory Effort, Decreased Breath Sounds, Crackles Cardiovascular: Reports: Regular Rhythm, Tachycardia GI/Abdominal Exam: Soft, Non-Tender, No Distention, Abnormal Bowel Sounds (Female) Exam: Deferred Rectal (Female) Exam: Deferred Extremities: Normal Inspection Skin: Reports: Warm, Dry, Intact
[2021-03-14 08:27] VITALS: BP 77/45; PULSE 100
[2021-03-14] MEDS: Morphine 10 MG/0.5 ML Oral Syringe PO PRN (10:35)
== END 2021-03-14 11:10 | DRG 951 ==
LOC: JD.ED 12:34 → SUPCPDRO 12:34 → JD.MS 15:26
PROVIDERS: ADMIT Internal Medicine; ATTEND Internal Medicine
DX: Z51.5 Encounter for palliative care (principal); J96.01 Acute respiratory failure with hypoxia; N17.9 Acute kidney failure, unspecified; D61.818 Other pancytopenia; W19.XXXA Unspecified fall, initial encounter; Z02.2 Encounter for examination for admission to residential institution; H54.7 Unspecified visual loss; E87.1 Hypo-osmolality and hyponatremia; K58.9 Irritable bowel syndrome, unspecified; K57.90 Diverticulosis of intestine, part unspecified, without perforation or abscess without bleeding; R32 Unspecified urinary incontinence; M19.90 Unspecified osteoarthritis, unspecified site; E87.6 Hypokalemia; K51.90 Ulcerative colitis, unspecified, without complications; Z79.899 Other long term (current) drug therapy; Z88.2 Allergy status to sulfonamides; Z66 Do not resuscitate; K51.919 Ulcerative colitis, unspecified with unspecified complications; D46.9 Myelodysplastic syndrome, unspecified; R74.01 Elevation of levels of liver transaminase levels; E83.42 Hypomagnesemia; E80.6 Other disorders of bilirubin metabolism; K21.9 Gastro-esophageal reflux disease without esophagitis; S00.83XA Contusion of other part of head, initial encounter; W18.30XA Fall on same level, unspecified, initial encounter; Z20.822 Contact with and (suspected) exposure to COVID-19; N18.9 Chronic kidney disease, unspecified; K52.9 Noninfective gastroenteritis and colitis, unspecified; Z97.8 Presence of other specified devices; Z87.19 Personal history of other diseases of the digestive system; Z98.890 Other specified postprocedural states; Z90.89 Acquired absence of other organs; Z90.49 Acquired absence of other specified parts of digestive tract; Z98.42 Cataract extraction status, left eye; Z98.41 Cataract extraction status, right eye; Z90.710 Acquired absence of both cervix and uterus; Y92.89 Other specified places as the place of occurrence of the external cause
CPT/HCPCS: 0240U; 36415; 51702; 70450; 80053; 85025; A9270-GY; J1642; J2060; J2270; J7120; U0002